=== PATIENT | female | born 1945 | race Caucasian/White ===

== ENCOUNTER 2018-10-25 20:02 | Inpatient (IN) | payer BC, MEDICAID ==
[~2018-10-25] VITALS: Ht 167.6 cm; Wt 43.1 kg
[2018-10-25] MEDS ORDERED: CEFTRIAXONE 1 GM/50 ML (PMX) 50 ML IVPB STA (20:06)
[2018-10-25 20:26] VITALS: Ht 167.6 cm; Wt 43.1 kg
[2018-10-25] MEDS ORDERED: SODIUM CHLORIDE 0.9% 1L BAG IV* STA (21:19)
[2018-10-25] MEDS ORDERED: AZITHROMYCIN 500MG/NS (PMX) 250 ML IVPB ONE (22:30)
--- NOTE | 2018-10-25 22:34 | ERD ---
ER Documentation Chief Complaint Chief Complaint ALTERED HPI Patient is a 73-year-old female with no medical problems who presents with altered mental status. Please note the history and physical exam is limited secondary to patient's mental status she is unable to give a history. The patient was brought in by ambulance. For the last few weeks she has had decreased p.o. intake and the paramedics she has "failure to thrive". The patient complained of shortness of breath today. Sugar was within normal limits per paramedics. The patient lives at home and friend supposed to take care of her. She is currently awake alert and oriented x3. She does not know what state oriented, what year it is, or what her name was. ROS All systems reviewed and are negative except as per history of present illness. Medications Home Meds No Active Prescriptions or Reported Meds Allergies Allergies: Coded Allergies: No Known Allergy (Unverified , 10/25/18) PMhx/Soc Medical and Surgical Hx: pt denies Medical Hx, pt denies Surgical Hx Hx Alcohol Use: No Hx Substance Use: No Hx Tobacco Use: Yes Smoking Status: Current every day smoker FmHx Unable to obtain Physical Exam Vitals Vital Signs Date Temp Pulse Resp B/P (MAP) Pulse Ox O2 O2 Flow FiO2 Time Delivery Rate 10/25/18 98.4 64 18 133/81 98 20:26 (98) Physical Exam Const: No acute distress Head: Atraumatic Eyes: Normal Conjunctiva ENT: Dry mucous membranes Neck: Full range of motion. No meningismus. Resp: Decreased breath sounds bilaterally Cardio: Regular rate and rhythm, no murmurs Abd: Soft, non tender, non distended. Normal bowel sounds Skin: No petechiae or rashes Back: No midline or flank tenderness Ext: No cyanosis, or edema Neur: Awake and alert Psych: Normal Mood and Affect Result Diagram: 10/25/18 2018 10/25/18 2018 Results 24 hrs Laboratory Tests Test 10/25/18 20:18 10/25/18 20:21 10/25/18 22:07 White Blood Count 11.6 10^3/ul Red Blood Count 4.75 10^6/ul Hemoglobin 14.8 g/dl Hematocrit 45.4 % Mean Corpuscular Volume 95.6 fl Mean Corpuscular Hemoglobin 31.2 pg Mean Corpuscular 32.6 g/dl Hemoglobin Concent Red Cell Distribution Width 12.2 % Platelet Count 288 10^3/UL Mean Platelet Volume 11.0 fl Immature Granulocytes % 0.300 % Neutrophils % 78.3 % Lymphocytes % 12.4 % Monocytes % 8.2 % Eosinophils % 0.5 % Basophils % 0.3 % Nucleated Red Blood Cells % 0.0 /100WBC Immature Granulocytes # 0.040 10^3/ul Neutrophils # 9.1 10^3/ul Lymphocytes # 1.4 10^3/ul Monocytes # 1.0 10^3/ul Eosinophils # 0.1 10^3/ul Basophils # 0.0 10^3/ul Nucleated Red Blood Cells # 0.0 10^3/ul Prothrombin Time 12.2 Sec Prothrombin Time Ratio 1.0 INR International Normalized Ratio 0.89 Activated Partial Thromboplast 29.9 Sec Time Sodium Level 151 mmol/L Potassium Level 3.5 mmol/L Chloride Level 115 mmol/L Carbon Dioxide Level 29 mmol/L Anion Gap 7 Blood Urea Nitrogen 22 mg/dl Creatinine 0.76 mg/dl Est Glomerular Filtrat Rate mL/min mL/min Glucose Level 112 mg/dl Calcium Level 12.6 mg/dl Total Bilirubin 0.5 mg/dl Direct Bilirubin 0.00 mg/dl Indirect Bilirubin 0.5 mg/dl Aspartate Amino Transf (AST/SGOT) 31 IU/L Alanine 22 IU/L Aminotransferase (ALT/SGPT) Alkaline Phosphatase 115 IU/L Troponin I 0.019 ng/ml Total Protein 7.7 g/dl Albumin 3.7 g/dl Globulin 4.00 g/dl Albumin/Globulin Ratio 0.92 POC Venous Lactate 1.2 mmol/L Lactic Acid Level 1.8 mmol/L Current Medications Medications Dose Sig/Hellen Start Time Status Last (Trade) Ordered Route PRN Stop Time Admin Dose Reason Admin Ceftriaxone 50 ml @ ONCE STAT 10/25/18 DC 10/25/18 Sodium 100 mls/hr IVPB 20:06 20:06 10/25/18 20:35 Sodium 1,300 ml BOLUS OVER 2 10/25/18 DC 10/25/18 Chloride HOURS STAT 21:19 21:52 (NS) IV* 10/25/18 21:20 Azithromycin 250 ml @ ONCE ONCE 10/25/18 250 mls/hr IVPB 22:30 10/25/18 23:29 Procedures/MDM CT scan of the brain read by radiology. Chest x-ray shows pneumonia per radiology. Smoking Cessation Therapy: Pt. was lectured for greater than 3 minutes on the health risks of continued smoking and the benefits of cessation. Patient is a 73-year-old female who presents with altered mental status. Patient was found to have a dense pneumonia. The patient was given ceftriaxone and Zithromax for community associated pneumonia. I doubt sepsis at this time. The patient was given a 30 mg/kg fluid bolus for fluid resuscitation as she does appear very dehydrated. She has hypernatremia likely from dehydration. The patient will be admitted to the care of Dr. Lovell to a medical surgical bed. Departure Diagnosis: Primary Impression: PNA (pneumonia) Pneumonia type: due to unspecified organism Laterality: unspecified laterality Lung location: unspecified part of lung Qualified Codes: J18.9 - Pneumonia, unspecified organism Additional Impressions: Encephalopathy Dehydration Condition: Serious TRISH ALFARO MD Oct 25, 2018 22:34
--- NOTE | 2018-10-25 22:46 | HP ---
Date/Time of Note Date/Time of Note DATE: 10/25/18 TIME: 22:45 Assessment/Plan VTE Prophylaxis Pharmacological prophylaxis: heparin Lines/Catheters IV Catheter Type (from Nrs): Saline Lock Assessment/Plan Assessment/Plan 1. Encephalopathy: Unknown baseline -Head CT shows moderate white matter disease and a prominent atherosclerosis of the internal carotid and vertebral artery otherwise no acute findings -Consider MRI of the brain based on clinical course -Attempt to gather more information about the patient's past during the day -PT eval 2. Failure to thrive -Dietary consult 3. Hypernatremia: Secondary to dehydration -D5W with 1/4NS 4. Mild leukocytosis: Likely reactive Result Diagram: 10/25/18201710/25/182017 Results 24hrs Laboratory Tests Test 10/25/18 20:18 10/25/18 20:21 10/25/18 22:07 White Blood Count 11.6 H Red Blood Count 4.75 Hemoglobin 14.8 Hematocrit 45.4 Mean Corpuscular Volume 95.6 Mean Corpuscular Hemoglobin 31.2 Mean Corpuscular Hemoglobin Concent 32.6 Red Cell Distribution Width 12.2 Platelet Count 288 Mean Platelet Volume 11.0 H Immature Granulocytes % 0.300 Neutrophils % 78.3 H Lymphocytes % 12.4 L Monocytes % 8.2 Eosinophils % 0.5 Basophils % 0.3 Nucleated Red Blood Cells % 0.0 Immature Granulocytes # 0.040 H Neutrophils # 9.1 H Lymphocytes # 1.4 Monocytes # 1.0 H Eosinophils # 0.1 Basophils # 0.0 Nucleated Red Blood Cells # 0.0 Prothrombin Time 12.2 Prothrombin Time Ratio 1.0 INR International Normalized Ratio 0.89 Activated Partial Thromboplast Time 29.9 Sodium Level 151 H Potassium Level 3.5 Chloride Level 115 H Carbon Dioxide Level 29 Anion Gap 7 Blood Urea Nitrogen 22 H Creatinine 0.76 Est Glomerular Filtrat Rate mL/min Glucose Level 112 Calcium Level 12.6 H Total Bilirubin 0.5 Direct Bilirubin 0.00 Indirect Bilirubin 0.5 Aspartate Amino Transf (AST/SGOT) 31 Alanine Aminotransferase (ALT/SGPT) 22 Alkaline Phosphatase 115 Troponin I 0.019 Total Protein 7.7 Albumin 3.7 Globulin 4.00 H Albumin/Globulin Ratio 0.92 POC Venous Lactate 1.2 Lactic Acid Level 1.8 HPI/ROS Admit Date/Time Admit Date/Time Hx of Present Illness Patient is a 73-year-old female with no known past medical history who was brought to the ER for altered mentation. Patient is not oriented and as such unable to give history. She is thinly built with poor dentition as well as overall poor oral hygiene. She said also consult this time is to have some rest and sleep. When she presented to the ER, her sodium was found to be 151, WBC 11.6. Head CT shows moderate white matter disease and prominent atherosclerosis of internal carotid and vertebral artery otherwise no acute findings. PMH/Family/Social Past Medical History Past Surgical Hx: other (see HPI) Family History Significant Family History: no pertinent family hx Social History Alcohol Use: none Smoking Status: Never smoker Drug Use: none Exam Constitutional: No acute distress Head: normocephalic, atraumatic Eyes: EOMI, PERRL Respiratory: no distress Cardiovascular: regular rate and rhythm Gastrointestinal: soft Extremities: normal pulses Medications Current Medications Azithromycin 250 ml @ 250 mls/hr ONCE ONCE IVPB ; Start 10/25/18 at 22:30; S top 10/25/18 at 23:29 Ondansetron HCl (Zofran Inj) 4 mg BRIDGE ORDER PRN IV NAUSEA/VOMITING; Start at 23:00; Stop 10/26/18 at 22:59 Acetaminophen (Tylenol Tab) 650 mg ER BRIDGE PRN PO .MILD PAIN 1-3 OR TEMP; Start 10/25/18 at 23:00; Stop 10/26/18 at 22:59 IV Flush (NS 3 ml) 3 ml PER PROTOCOL IV ; Start 10/25/18 at 23:00; Status UNV Ondansetron HCl (Zofran Inj) 4 mg Q6H PRN IV NAUSEA/VOMITING; Start 10/25/18 at 23:00; Status UNV Acetaminophen (Tylenol Supp) 650 mg Q6H PRN [place] .PAIN 1-3 OR TEMP; Start 10/25/18 at 23:00; Status UNV Heparin Sodium (Porcine) (Heparin (5000 Units/1ml)) 5,000 unit Q12 SC ; Start 10/26/18 at 09:00; Status UNV Albuterol/ Ipratropium (Duoneb) 3 ml Q2H RESP THERAPY PRN HHN SHORTNESS OF BREATH; Start 10/25/18 at 23:00; Status UNV Ceftriaxone Sodium 50 ml @ 100 mls/hr Q12H IVPB ; Start 10/25/18 at 23:00; Status UNV Azithromycin 250 ml @ 250 mls/hr DAILY IVPB ; Start 10/26/18 at 09:00; Status UNV Dextrose/Sodium Chloride 1,000 ml @ 100 mls/hr Q10H IV ; Start 10/25/18 at 23:00; Status UNV Coded Allergies: No Known Allergy (Unverified , 10/25/18) Social History Smoking Status: Current every day smoker Exam/Review of Systems Vital Signs Vitals Vital Signs Date Temp Pulse Resp B/P (MAP) Pulse Ox O2 O2 Flow FiO2 Time Delivery Rate 10/25/18 98.4 64 18 133/81 98 20:26 (98) KECIA DOE MD Oct 25, 2018 22:46
[2018-10-25] MEDS ORDERED: ALBUTEROL/IPRATROPIUM (NEB) 3 ML AMP HHN PRN (23:00)
[2018-10-25] MEDS ORDERED: ONDANSETRON 4 MG INJ IV PRN ×2 (23:00)
[2018-10-25] MEDS ORDERED: ACETAMINOPHEN 325 MG TAB PO PRN (23:00)
[2018-10-25] MEDS ORDERED: ACETAMINOPHEN 650 MG SUPP PR PRN (23:00)
[2018-10-25] MEDS ORDERED: NACL 0.9% 3 ML SYG IV SCH (23:00)
[2018-10-25 23:37] VITALS: BP 120/65; PULSE 80; RESP 18
[2018-10-26] MEDS: DEXTROSE 5%-0.225% NACL 1,000 ML IV SCH ×4 (00:51→19:00)
[2018-10-26 01:26] VITALS: BP 143/69; PULSE 62; RESP 17
[2018-10-26 08:07] VITALS: BP 140/63; PULSE 69; RESP 18
[2018-10-26] MEDS: CEFTRIAXONE 1 GM/50 ML (PMX) 50 ML IVPB SCH ×3 (08:20→21:41)
[2018-10-26] MEDS: HEPARIN 5,000 UNIT/1 ML VIAL SC SCH ×2 (08:27→21:53)
[2018-10-26] MEDS: POTASSIUM CHLORIDE 100 ML IVPB SCH ×2 (10:04→11:57)
--- NOTE | 2018-10-26 11:38 | PN ---
Date/Time of Note Date/Time of Note DATE: 10/26/18 TIME: 11:34 Assessment/Plan VTE Prophylaxis SCD applied (from Nsg): Yes Pharmacological prophylaxis: heparin Lines/Catheters IV Catheter Type (from Nrsg): Peripheral IV Assessment/Plan Hospital Course Assessment and plan 1. Encephalopathy. Head CT showed moderate white matter disease and prominent atherosclerosis of the internal carotid and vertebral artery otherwise no acute finding. Continue reorientation. Will get further imaging pending clinical course. Will get physical therapy. 2. Failure to thrive. Dietary consult. Will get social media specialist to follow. May need possible placement. We will get case management consultation. 3. Hyponatremia. Continue with IV fluids. Monitor trend. 4. Hypokalemia. Will replete. Monitor level. 5. Pneumonia. Chest x-ray did show dense pneumonia on the right lung. Will get CT imaging with IV contrast. Disposition plan. Will get CT scan of the chest. We will continue with antibiotics. Awaiting PT eval. Discussed POC with Dr. Crow Result Diagram: 10/26/18 0615 10/26/18 0614 Results 24hrs Laboratory Tests Test 10/25/18 20:18 10/25/18 20:21 10/25/18 22:07 10/26/18 00:55 White Blood Count 11.6 H Red Blood Count 4.75 Hemoglobin 14.8 Hematocrit 45.4 Mean Corpuscular 95.6 Volume Mean Corpuscular 31.2 Hemoglobin Mean Corpuscular 32.6 Hemoglobin Concent Red Cell 12.2 Distribution Width Platelet Count 288 Mean Platelet Volume 11.0 H Immature 0.300 Granulocytes % Neutrophils % 78.3 H Lymphocytes % 12.4 L Monocytes % 8.2 Eosinophils % 0.5 Basophils % 0.3 Nucleated Red Blood 0.0 Cells % Immature 0.040 H Granulocytes # Neutrophils # 9.1 H Lymphocytes # 1.4 Monocytes # 1.0 H Eosinophils # 0.1 Basophils # 0.0 Nucleated Red Blood 0.0 Cells # Prothrombin Time 12.2 Prothrombin Time 1.0 Ratio INR International 0.89 Normalized Ratio Activated 29.9 Partial Thromboplast Time Sodium Level 151 H Potassium Level 3.5 Chloride Level 115 H Carbon Dioxide Level 29 Anion Gap 7 Blood Urea Nitrogen 22 H Creatinine 0.76 Est Glomerular Filtrat Rate mL/min Glucose Level 112 Calcium Level 12.6 H Total Bilirubin 0.5 Direct Bilirubin 0.00 Indirect Bilirubin 0.5 Aspartate Amino 31 Transf (AST/SGOT) Alanine 22 Aminotransferase (AL T/SGPT) Alkaline Phosphatase 115 Troponin I 0.019 Total Protein 7.7 Albumin 3.7 Globulin 4.00 H Albumin/Globulin 0.92 Ratio POC Venous Lactate 1.2 Lactic Acid Level 1.8 1.4 Test 10/26/18 06:14 10/26/18 06:15 Sodium Level 151 H Potassium Level 2.9 *L Chloride Level 115 H Carbon Dioxide Level 30 Anion Gap 6 Blood Urea Nitrogen 21 H Creatinine 0.70 Est Glomerular Filtrat Rate mL/min Glucose Level 135 Calcium Level 11.9 H Phosphorus Level 2.7 Magnesium Level 2.3 Total Bilirubin 0.4 Direct Bilirubin 0.00 Indirect Bilirubin 0.4 Aspartate Amino 27 Transf (AST/SGOT) Alanine 18 Aminotransferase (AL T/SGPT) Alkaline Phosphatase 95 Total Protein 7.1 Albumin 3.4 Globulin 3.70 H Albumin/Globulin 0.91 Ratio Triglycerides Level 112 Cholesterol Level 168 LDL Cholesterol, 111 Calculated HDL Cholesterol 35 Cholesterol/HDL 4.8 Ratio Free Thyroxine Index 2.03 Thyroxine (T4) 4.9 L Triiodothyronine 41.5 H (T3) Uptake White Blood Count 10.1 Red Blood Count 4.58 Hemoglobin 14.1 Hematocrit 44.8 Mean Corpuscular 97.8 Volume Mean Corpuscular 30.8 Hemoglobin Mean Corpuscular 31.5 L Hemoglobin Concent Red Cell 12.3 Distribution Width Platelet Count 271 Mean Platelet Volume 11.1 H Immature 0.400 Granulocytes % Neutrophils % 83.2 H Lymphocytes % 9.6 L Monocytes % 6.2 Eosinophils % 0.4 Basophils % 0.2 Nucleated Red Blood 0.0 Cells % Immature 0.040 H Granulocytes # Neutrophils # 8.4 H Lymphocytes # 1.0 Monocytes # 0.6 Eosinophils # 0.0 Basophils # 0.0 Nucleated Red Blood 0.0 Cells # Hemoglobin A1c 5.9 Subjective 24 Hr Interval Summary Free Text/Dictation alert, but confused. slightly anxious. denies any pain Exam/Review of Systems Exam Vitals Vital Signs Date Temp Pulse Resp B/P (MAP) Pulse Ox O2 O2 Flow FiO2 Time Delivery Rate 10/26/18 97.5 69 18 140/63 97 08:07 (88) 10/25/18 Room Air 23:05 Intake and Output 10/25/18 10/25/1810/26/19 1515:00 23:00 07:00 IntakeIntake Total 300 ml BalanceBalance 300 ml Constitutional: alert; No oriented Psych: anxiety Head: normocephalic Respiratory: clear to auscultation Cardiovascular: regular rate and rhythm Gastrointestinal: soft, non-tender Musculoskeletal: No swelling Neurological: No nl mental status Skin: nl turgor Results Results 24hrs Laboratory Tests Test 10/25/18 20:18 10/25/18 20:21 10/25/18 22:07 10/26/18 00:55 White Blood Count 11.6 H Red Blood Count 4.75 Hemoglobin 14.8 Hematocrit 45.4 Mean Corpuscular 95.6 Volume Mean Corpuscular 31.2 Hemoglobin Mean Corpuscular 32.6 Hemoglobin Concent Red Cell 12.2 Distribution Width Platelet Count 288 Mean Platelet Volume 11.0 H Immature 0.300 Granulocytes % Neutrophils % 78.3 H Lymphocytes % 12.4 L Monocytes % 8.2 Eosinophils % 0.5 Basophils % 0.3 Nucleated Red Blood 0.0 Cells % Immature 0.040 H Granulocytes # Neutrophils # 9.1 H Lymphocytes # 1.4 Monocytes # 1.0 H Eosinophils # 0.1 Basophils # 0.0 Nucleated Red Blood 0.0 Cells # Prothrombin Time 12.2 Prothrombin Time 1.0 Ratio INR International 0.89 Normalized Ratio Activated 29.9 Partial Thromboplast Time Sodium Level 151 H Potassium Level 3.5 Chloride Level 115 H Carbon Dioxide Level 29 Anion Gap 7 Blood Urea Nitrogen 22 H Creatinine 0.76 Est Glomerular Filtrat Rate mL/min Glucose Level 112 Calcium Level 12.6 H Total Bilirubin 0.5 Direct Bilirubin 0.00 Indirect Bilirubin 0.5 Aspartate Amino 31 Transf (AST/SGOT) Alanine 22 Aminotransferase (AL T/SGPT) Alkaline Phosphatase 115 Troponin I 0.019 Total Protein 7.7 Albumin 3.7 Globulin 4.00 H Albumin/Globulin 0.92 Ratio POC Venous Lactate 1.2 Lactic Acid Level 1.8 1.4 Test 10/26/18 06:14 10/26/18 06:15 Sodium Level 151 H Potassium Level 2.9 *L Chloride Level 115 H Carbon Dioxide Level 30 Anion Gap 6 Blood Urea Nitrogen 21 H Creatinine 0.70 Est Glomerular Filtrat Rate mL/min Glucose Level 135 Calcium Level 11.9 H Phosphorus Level 2.7 Magnesium Level 2.3 Total Bilirubin 0.4 Direct Bilirubin 0.00 Indirect Bilirubin 0.4 Aspartate Amino 27 Transf (AST/SGOT) Alanine 18 Aminotransferase (AL T/SGPT) Alkaline Phosphatase 95 Total Protein 7.1 Albumin 3.4 Globulin 3.70 H Albumin/Globulin 0.91 Ratio Triglycerides Level 112 Cholesterol Level 168 LDL Cholesterol, 111 Calculated HDL Cholesterol 35 Cholesterol/HDL 4.8 Ratio Free Thyroxine Index 2.03 Thyroxine (T4) 4.9 L Triiodothyronine 41.5 H (T3) Uptake White Blood Count 10.1 Red Blood Count 4.58 Hemoglobin 14.1 Hematocrit 44.8 Mean Corpuscular 97.8 Volume Mean Corpuscular 30.8 Hemoglobin Mean Corpuscular 31.5 L Hemoglobin Concent Red Cell 12.3 Distribution Width Platelet Count 271 Mean Platelet Volume 11.1 H Immature 0.400 Granulocytes % Neutrophils % 83.2 H Lymphocytes % 9.6 L Monocytes % 6.2 Eosinophils % 0.4 Basophils % 0.2 Nucleated Red Blood 0.0 Cells % Immature 0.040 H Granulocytes # Neutrophils # 8.4 H Lymphocytes # 1.0 Monocytes # 0.6 Eosinophils # 0.0 Basophils # 0.0 Nucleated Red Blood 0.0 Cells # Hemoglobin A1c 5.9 Medications Medication Current Medications Ondansetron HCl (Zofran Inj) 4 mg BRIDGE ORDER PRN IV NAUSEA/VOMITING; Start 10/25/18 at 23:00; Stop 10/26/18 at 22:59 Acetaminophen (Tylenol Tab) 650 mg ER BRIDGE PRN PO .MILD PAIN 1-3 OR TEMP; Start 10/25/18 at 23:00; Stop 10/26/18 at 22:59 IV Flush (NS 3 ml) 3 ml PER PROTOCOL IV ; Start 10/25/18 at 23:00 Ondansetron HCl (Zofran Inj) 4 mg Q6H PRN IV NAUSEA/VOMITING; Start 10/25/18 at 23:00 Acetaminophen (Tylenol Supp) 650 mg Q6H PRN [place] .PAIN 1-3 OR TEMP; Start 10/25/18 at 23:00 Heparin Sodium (Porcine) (Heparin (5000 Units/1ml)) 5,000 unit Q12 SC Last administered on 10/26/18at 08:27; Admin Dose 5,000 UNIT; Start 10/26/18 at 09:00 Albuterol/ Ipratropium (Duoneb) 3 ml Q2H RESP THERAPY PRN HHN SHORTNESS OF BREATH; Start 10/25/18 at 23:00 Ceftriaxone Sodium 50 ml @ 100 mls/hr Q12H IVPB Last administered on 10/26/18at 08:20; Admin Dose 100 MLS/HR; Start 10/26/18 at 08:00 Azithromycin 250 ml @ 250 mls/hr Q24H IVPB ; Start 10/26/18 at 22:00 Dextrose/Sodium Chloride 1,000 ml @ 100 mls/hr Q10H IV Last administered on 10/26/18at 00:51; Admin Dose 100 MLS/HR; Start 10/25/18 at 23:00 Potassium Chloride 100 ml @ 50 mls/hr Q2H IVPB Last administered on 10/26/18at 10:04; Admin Dose 50 MLS/HR; Start 10/26/18 at 08:00; Stop 10/26/18 at 11:59 TEMO ELLISON NP Oct 26, 2018 11:38
[2018-10-26 14:57] VITALS: BP 154/79; PULSE 70; RESP 18
--- NOTE | 2018-10-26 16:52 | PSY ---
Date/Time of Note Date/Time of Note DATE: 10/26/18 TIME: 16:52 Psychiatric Subjective Eval Consent Pt consented to telemedicine: No Subjective Evaluation Patient location: inpatient Chief Complaint: ALTERED History of present illness Patient is a 73-year-old female disorganized confused cannot process information, patient thinks she is at home with applesauce and juices on the counter Mini-Mental status exam done and patient had 10/10 she cannot process information. Patient is talking to herself talking to unseen person responding to internal stimuli she has poor impulse control and poor coping skills Past psychiatric history Patient is confused and unable to answer questions Hospitalization: other Medical history Problems Medical Problems: (1) Dehydration Status: Acute (2) Encephalopathy Status: Acute (3) PNA (pneumonia) Status: Acute Allergies: Coded Allergies: No Known Allergy (Unverified , 10/25/18) Substance Abuse Substance abuse history: No Prior substance abuse treatmen: No Social History Marital status: other DPA/Conservatorship: No Psychiatric Objective Eval Review of Systems: Review of Systems: Not Applicable Physical Examination: Physical Examination: Not Applicable Mental Status Examination: Eye Contact: Poor Behavior: Suspicious, Agitated Speech: Soft AFFECT: Anxious Mood: Irritable Though Process: Tangential Orientation: x1 Cognition: Alert Laboratory Results Laboratory Tests Test 10/25/18 14:45 10/25/18 20:18 10/25/18 20:21 10/25/18 22:07 Urine Color YELLOW Urine Clarity SLIGHTLY CLOUDY Urine pH 6.0 Urine Specific 1.018 [place] Urine Ketones NEGATIVE mg/dL Urine Nitrite POSITIVE mg/dL Urine Bilirubin NEGATIVE mg/dL Urine NEGATIVE mg/dL Urobilinogen Urine Leukocyte TRACE James/ul Esterase Urine 2 /HPF Microscopic RBC Urine 21 /HPF Microscopic WBC Urine Bacteria FEW /HPF Urine Mucus MODERATE /HPF Urine Hemoglobin NEGATIVE mg/dL Urine Glucose NEGATIVE mg/dL Urine Total NEGATIVE mg/dl Protein White Blood 11.6 10^3/ul Count Red Blood Count 4.75 10^6/ul Hemoglobin 14.8 g/dl Hematocrit 45.4 % Mean Corpuscular 95.6 fl Volume Mean Corpuscular 31.2 pg Hemoglobin Mean Corpuscular 32.6 g/dl Hemoglobin Makenzie nt Red Cell 12.2 % Distribution Width Platelet Count 288 10^3/UL Mean Platelet 11.0 fl Volume Immature 0.300 % Granulocytes % Neutrophils % 78.3 % Lymphocytes % 12.4 % Monocytes % 8.2 % Eosinophils % 0.5 % Basophils % 0.3 % Nucleated Red 0.0 /100WBC Blood Cells % Immature 0.040 10^3/ul Granulocytes # Neutrophils # 9.1 10^3/ul Lymphocytes # 1.4 10^3/ul Monocytes # 1.0 10^3/ul Eosinophils # 0.1 10^3/ul Basophils # 0.0 10^3/ul Nucleated Red 0.0 10^3/ul Blood Cells # Prothrombin Time 12.2 Sec Prothrombin Time 1.0 Ratio INR 0.89 International Normalized Ratio Activated 29.9 Sec Partial Thrombop last Time Sodium Level 151 mmol/L Potassium Level 3.5 mmol/L Chloride Level 115 mmol/L Carbon Dioxide 29 mmol/L Level Anion Gap 7 Blood Urea 22 mg/dl Nitrogen Creatinine 0.76 mg/dl Est Glomerular mL/min Filtrat Rate mL/min Glucose Level 112 mg/dl Calcium Level 12.6 mg/dl Total Bilirubin 0.5 mg/dl Direct Bilirubin 0.00 mg/dl Indirect 0.5 mg/dl Bilirubin Aspartate Amino 31 IU/L Transf (AST/SGOT ) Alanine 22 IU/L Aminotransferase (ALT/SGPT) Alkaline 115 IU/L Phosphatase Troponin I 0.019 ng/ml Total Protein 7.7 g/dl Albumin 3.7 g/dl Globulin 4.00 g/dl Albumin/Globulin 0.92 Ratio POC Venous 1.2 mmol/L Lactate Lactic Acid 1.8 mmol/L Level Test 10/26/18 00:55 10/26/18 06:14 10/26/18 06:15 Lactic Acid 1.4 mmol/L Level Sodium Level 151 mmol/L Potassium Level 2.9 mmol/L Chloride Level 115 mmol/L Carbon Dioxide 30 mmol/L Level Anion Gap 6 Blood Urea 21 mg/dl Nitrogen Creatinine 0.70 mg/dl Est Glomerular mL/min Filtrat Rate mL/min Glucose Level 135 mg/dl Calcium Level 11.9 mg/dl Phosphorus Level 2.7 mg/dl Magnesium Level 2.3 mg/dl Total Bilirubin 0.4 mg/dl Direct Bilirubin 0.00 mg/dl Indirect 0.4 mg/dl Bilirubin Aspartate Amino 27 IU/L Transf (AST/SGOT ) Alanine 18 IU/L Aminotransferase (ALT/SGPT) Alkaline 95 IU/L Phosphatase Total Protein 7.1 g/dl Albumin 3.4 g/dl Globulin 3.70 g/dl Albumin/Globulin 0.91 Ratio Triglycerides 112 mg/dl Level Cholesterol 168 mg/dl Level LDL Cholesterol, 111 mg/dl Calculated HDL Cholesterol 35 mg/dl Cholesterol/HDL 4.8 RATIO Ratio Free Thyroxine 2.03 ug/ml Index Thyroxine (T4) 4.9 ug/dl Triiodothyronine 41.5 % (T3) Uptake White Blood 10.1 10^3/ul Count Red Blood Count 4.58 10^6/ul Hemoglobin 14.1 g/dl Hematocrit 44.8 % Mean Corpuscular 97.8 fl Volume Mean Corpuscular 30.8 pg Hemoglobin Mean Corpuscular 31.5 g/dl Hemoglobin Makenzie nt Red Cell 12.3 % Distribution Width Platelet Count 271 10^3/UL Mean Platelet 11.1 fl Volume Immature 0.400 % Granulocytes % Neutrophils % 83.2 % Lymphocytes % 9.6 % Monocytes % 6.2 % Eosinophils % 0.4 % Basophils % 0.2 % Nucleated Red 0.0 /100WBC Blood Cells % Immature 0.040 10^3/ul Granulocytes # Neutrophils # 8.4 10^3/ul Lymphocytes # 1.0 10^3/ul Monocytes # 0.6 10^3/ul Eosinophils # 0.0 10^3/ul Basophils # 0.0 10^3/ul Nucleated Red 0.0 10^3/ul Blood Cells # Hemoglobin A1c 5.9 % Assessment and Plan Assessment/Diagnosis Diagnosis Psychosis not otherwise specified, rule out delirium. Recommendation/Plan Multiple antipsychotics: No Discharge Disposition: Other Legal Status: Voluntary (Does not meet criteria for 5150 hold) JUNIOR COOK NP Oct 26, 2018 16:52
[2018-10-26 20:01] VITALS: BP 137/85; PULSE 62; RESP 18
[2018-10-26] MEDS: AZITHROMYCIN 500MG/NS (PMX) 250 ML IVPB SCH (22:39)
[2018-10-27 01:45] VITALS: BP 114/87; PULSE 60; RESP 18
[2018-10-27] MEDS: DEXTROSE 5%-0.225% NACL 1,000 ML IV SCH ×3 (04:00→15:45)
[2018-10-27 07:42] VITALS: BP 142/83; PULSE 50; RESP 18
[2018-10-27] MEDS: CEFTRIAXONE 1 GM/50 ML (PMX) 50 ML IVPB SCH ×2 (08:11→20:31)
[2018-10-27] MEDS: HEPARIN 5,000 UNIT/1 ML VIAL SC SCH ×2 (08:13→20:32)
[2018-10-27] MEDS ORDERED: POTASSIUM CHLORIDE (SR) 20 MEQ TAB PO STA (09:29)
[2018-10-27] MEDS ORDERED: POTASSIUM CHLORIDE 20 MEQ POWDER FOR ORAL SOLN GTB ONE (10:00)
--- NOTE | 2018-10-27 11:37 | CONS ---
Assessment/Plan Assessment/Plan Hospital Course (Demo Recall) Extensive right-sided pulmonary lesions highly suggestive of advanced lung malignancy. COMPLETE STAGING WITH CT CHEST WITH IV CONTRAST AND CT ABD/PELVIS WITH AND WITHOUT IV CONTRAST BIOCHEM W-UP AND TUMOR MARKERS PER RN - NO FAMILY AVAILABLE PT HAS 2 FRIENDS, WHO ARE GOING TO MAKE A DECISION . SOCIAL SERVICE INVOLVED Altered mental status possibly due to hypernatremia. CT BRAIN - NEG COPD. Patient been a current smoker. Advanced dementia. Emaciated state. Consultation Date/Type/Reason Admit Date/Time Date of Consultation: Oct 27, 2018 Type of Consult [facility] Reason for Consultation lung mass Requesting Provider: TEMO ELLISON NP Date/Time of Note DATE: 10/27/18 TIME: 11:36 Hx of Present Illness Patient is a 73-year-old lady who was admitted to the hospital because of altered mental status. her w-up included: chest x-ray, showing extensive infiltrative changes involving the right lung. CT chest- showing extensive right lung involvement with what appears to be advanced malignancy. pt is confused. She cannot recall where she is. She denies any shortness of breath, chest pain, coughing, wheezing or any coughing up of blood. seen with RN at bedside Past medical history; 1. Apparently advanced dementia. Medications; reviewed. Allergies; none. Social history; patient is a current smoker. Family history; patient is apparently single. With no family members. Occupational history; not available. Review of systems; limited review of systems review of pain. Patient denies any headache, seizures. Any chest pain, coughing, shortness of breath. Any abdominal pain, nausea vomiting. Any dysphasia. General exam; elderly woman, appears quite emaciated. Awake and alert. Currently no distress. Current Medications IV Flush (NS 3 ml) 3 ml PER PROTOCOL IV ; Start 10/25/18 at 23:00 Ondansetron HCl (Zofran Inj) 4 mg Q6H PRN IV NAUSEA/VOMITING; Start 10/25/18 at 23:00 Acetaminophen (Tylenol Supp) 650 mg Q6H PRN [place] .PAIN 1-3 OR TEMP; Start 10/25/18 at 23:00 Heparin Sodium (Porcine) (Heparin (5000 Units/1ml)) 5,000 unit Q12 SC Last administered on 10/27/18at 08:13; Admin Dose 5,000 UNIT; Start 10/26/18 at 09:00 Albuterol/ Ipratropium (Duoneb) 3 ml Q2H RESP THERAPY PRN HHN SHORTNESS OF BREATH; Start 10/25/18 at 23:00 Ceftriaxone Sodium 50 ml @ 100 mls/hr Q12H IVPB Last administered on 10/27/18at 08:11; Admin Dose 100 MLS/HR; Start 10/26/18 at 08:00 Azithromycin 250 ml @ 250 mls/hr Q24H IVPB Last administered on 10/26/18at 22:39; Admin Dose 250 MLS/HR; Start 10/26/18 at 22:00 Dextrose/Sodium Chloride 1,000 ml @ 100 mls/hr Q10H IV Last administered on 10/27/18at 04:00; Admin Dose 100 MLS/HR; Start 10/25/18 at 23:00 Lorazepam (Ativan) 1 mg Q6H PRN IV ANXIETY; Start 10/26/18 at 15:30 Allergies: Coded Allergies: No Known Allergy (Unverified , 10/25/18) Social History Smoking Status: Former smoker Past Medical History Home Meds No Active Prescriptions or Reported Meds Medications Current Medications IV Flush (NS 3 ml) 3 ml PER PROTOCOL IV ; Start 10/25/18 at 23:00 Ondansetron HCl (Zofran Inj) 4 mg Q6H PRN IV NAUSEA/VOMITING; Start 10/25/18 at 23:00 Acetaminophen (Tylenol Supp) 650 mg Q6H PRN [place] .PAIN 1-3 OR TEMP; Start 10/25/18 at 23:00 Heparin Sodium (Porcine) (Heparin (5000 Units/1ml)) 5,000 unit Q12 SC Last administered on 10/27/18at 08:13; Admin Dose 5,000 UNIT; Start 10/26/18 at 09:00 Albuterol/ Ipratropium (Duoneb) 3 ml Q2H RESP THERAPY PRN HHN SHORTNESS OF BREATH; Start 10/25/18 at 23:00 Ceftriaxone Sodium 50 ml @ 100 mls/hr Q12H IVPB Last administered on 10/27/18at 08:11; Admin Dose 100 MLS/HR; Start 10/26/18 at 08:00 Azithromycin 250 ml @ 250 mls/hr Q24H IVPB Last administered on 10/26/18at 22:39; Admin Dose 250 MLS/HR; Start 10/26/18 at 22:00 Dextrose/Sodium Chloride 1,000 ml @ 100 mls/hr Q10H IV Last administered on 10/27/18at 04:00; Admin Dose 100 MLS/HR; Start 10/25/18 at 23:00 Lorazepam (Ativan) 1 mg Q6H PRN IV ANXIETY; Start 10/26/18 at 15:30 Allergies: Coded Allergies: No Known Allergy (Unverified , 10/25/18) Social History Smoking Status: Former smoker Exam/Review of Systems Exam Vitals Vital Signs Date Temp Pulse Resp B/P (MAP) Pulse Ox O2 O2 Flow FiO2 Time Delivery Rate 10/27/18 97.9 50 18 142/83 98 07:42 (102) 10/25/18 Room Air 23:05 Intake and Output 10/26/18 10/26/18 10/27/18 1515:00 23:00 07:00 IntakeIntake Total 1490 ml 590 ml 1050 ml OutputOutput Total 500 ml BalanceBalance 1490 ml 90 ml 1050 ml Exam H EENT exam; supple neck, no JVD. No lymphadenopathy. Midline trachea. No thyromegaly. Patient has multiple carious teeth. No neck masses. Chest exam; diminished breath sounds bilaterally. S1-S2 audible, no murmurs. Regular rhythm. Abdomen exam; soft, nondistended. No organomegaly. Bowel sounds audible. Extremity exam; no peripheral edema clubbing. BODY PRESSER exam; patient is awake alert able to talk. Appears confused. No focal motor deficit. Results Result Diagram: 10/26/18 0615 10/27/18 0814 Results 24hrs Laboratory Tests Test 10/27/18 08:14 Potassium Level 3.2 L Imaging Imaging PROCEDURE: CT Chest without IV contrast CLINICAL INDICATION: Pneumonia TECHNIQUE: CT of the chest without IV contrast. Coronal and sagittal reformatted images. One or more of the following dose reduction techniques were used: automated exposure control, adjustment of the mA and/or kV according to patient size, use of iterative reconstruction technique. DICOM images are available. CTDI 4.2 mGy, DLP 156 mGy-cm. COMPARISON: Chest x-ray, 10/25/2018 FINDINGS: Lungs: Large right hilar/perihilar mass is identified measuring 6.2 cm in maximal dimension (3-59), invading into paratracheal/subcarinal mediastinal, compatible with malignancy. Moderate right pleural effusion. Nonspecific patchy areas of consolidation are seen bilaterally, greatest in the right lower lobe. Areas of interstitial thickening and honeycombing are present in the lung pe riphery bilaterally, concerning for pulmonary fibrosis. No pneumothorax. Cardiovascular: Normal heart size. Coronary arterial and aortic atherosclerotic calcifications. No thoracic aortic aneurysm. Lymph nodes and mediastinum: Enlarged right upper paratracheal lymph node is identified, measuring 12 mm short axis, further compatible with neoplasm/metastasis. Upper abdomen: Grossly unremarkable. Musculoskeletal: Expansile lytic lesion is seen involving sternum and right fourth rib costal cartilage, consistent with metastasis. There is pathologic fracture of the right fourth rib anterolaterally. IMPRESSION: 1. Large right hilar/perihilar mass is identified, invading into the adjacent paratracheal and subcarinal mediastinum, causing severe stenosis versus occlusion of the right lower lobe bronchus, compatible with primary lung malignancy. 2. 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 There is pathologic fracture of the right fourth rib anterolaterally. 3. Right upper paratracheal mediastinal lymph node metastasis is also seen. 4. Nonspecific patchy bilateral pulmonary opacities are noted, greatest in the right lower lobe - considerations include pneumonia, atelectasis, add additional infiltrative neoplasm. 5. Moderate right pleural effusion. 6. Areas of interstitial thickening and honeycombing are present in the lung periphery bilaterally, concerning for pulmonary fibrosis. CT Brain without contrast. CLINICAL INDICATION: Altered mental status TECHNIQUE: A CT of the brain was performed on a multi-slice CT scanner utilizing axial imaging from the skull base through the vertex without IV contrast. Coronal and sagittal re-formations were created. Images were reviewed on a PACS workstation. The CTDIvol is 40 mGy and the DLP is 634 mGycm. DICOM images are available. 3-D reconstructions were not performed. One or more of the following dose reduction techniques were utilized: 1.) Automated exposure control 2.) Adjustment of the mA +/- kV according to patient's size 3.) Use of iterative reconstruction technique. COMPARISON: None FINDINGS: The basilar cisterns, ventricular spaces and sulcal spaces are all mildly to moderately prominent. There is no midline shift or other evidence of mass effect. There are no abnormal foci of increased attenuation in the brain parenchyma. There is moderate diffuse periventricular white matter low attenuation in both hemispheres without particular focality. Bone-windows show no lytic or blastic calvarial lesions. The visualized paranasal sinuses and mastoid air cells are clear. There is calcification in the intracranial internal carotid and vertebral arteries. IMPRESSION: 1. Moderate central and cortical cerebral atrophy and moderate microvascular white matter disease, without evidence of intracranial hemorrhage, mass, or acute infarct. 2. Prominent atherosclerosis of the intracranial internal carotid and vertebral arteries. Medications Medication Current Medications IV Flush (NS 3 ml) 3 ml PER PROTOCOL IV ; Start 10/25/18 at 23:00 Ondansetron HCl (Zofran Inj) 4 mg Q6H PRN IV NAUSEA/VOMITING; Start 10/25/18 at 23:00 Acetaminophen (Tylenol Supp) 650 mg Q6H PRN [place] .PAIN 1-3 OR TEMP; Start 10/25/18 at 23:00 Heparin Sodium (Porcine) (Heparin (5000 Units/1ml)) 5,000 unit Q12 SC Last administered on 10/27/18at 08:13; Admin Dose 5,000 UNIT; Start 10/26/18 at 09:00 Albuterol/ Ipratropium (Duoneb) 3 ml Q2H RESP THERAPY PRN HHN SHORTNESS OF BREATH; Start 10/25/18 at 23:00 Ceftriaxone Sodium 50 ml @ 100 mls/hr Q12H IVPB Last administered on 10/27/18at 08:11; Admin Dose 100 MLS/HR; Start 10/26/18 at 08:00 Azithromycin 250 ml @ 250 mls/hr Q24H IVPB Last administered on 10/26/18at 22:39; Admin Dose 250 MLS/HR; Start 10/26/18 at 22:00 Dextrose/Sodium Chloride 1,000 ml @ 100 mls/hr Q10H IV Last administered on 10/27/18at 04:00; Admin Dose 100 MLS/HR; Start 10/25/18 at 23:00 Lorazepam (Ativan) 1 mg Q6H PRN IV ANXIETY; Start 10/26/18 at 15:30 MARSHAL CHINO MD Oct 27, 2018 11:37
--- NOTE | 2018-10-27 11:55 | CONS ---
Assessment/Plan Assessment/Plan Assessment/Plan (Daily) Assessment and recommendations; 1. Patient admitted with altered mental status possibly due to hypernatremia. 2. Extensive right-sided pulmonary lesions highly suggestive of advanced lung malignancy. 3. COPD. Patient been a current smoker. 4. Advanced dementia. 5. Emaciated state. Continue current supportive care. In view of patient's lack of any family members, underlying dementia , emaciated state and patient's inability to decide to care for herself , I would recommend a conservative treatment approach and not to pursue tissue diagnosis at this point. CT chest findings are highly consistent with advanced lung malignancy and regardless, patient would not be a candidate for any kind of treatment. However, patient's friends are in the process of getting some kind of DPOA. Consultation Date/Type/Reason Admit Date/Time Date of Consultation: Oct 27, 2018 Type of Consult Pulmonary Patient is a 73-year-old lady who was admitted to the hospital because of altered mental status. Upon further evaluation a chest x-ray was done which is showing extensive infiltrative changes involving the right lung. Patient also was hypernatremic. CT chest also was done which is showing extensive right lung involvement with what appears to be advanced malignancy. By the time I saw her, patient is much more awake and alert. Is able to talk but appears confused. She cannot recall where she is. She denies any shortness of breath, chest pain, coughing, wheezing or any coughing up of blood. Past medical history; 1. Apparently advanced dementia. Medications; reviewed. Allergies; none. Social history; patient is a current smoker. Family history; patient is apparently single. With no family members. Occupational history; not available. Review of systems; limited review of systems review of pain. Patient denies any headache, seizures. Any chest pain, coughing, shortness of breath. Any abdominal pain, nausea vomiting. Any dysphasia. General exam; elderly woman, appears quite emaciated. Awake and alert. Currently no distress. Date/Time of Note DATE: 10/27/18 TIME: 11:49 Past Medical History Home Meds No Active Prescriptions or Reported Meds Medications Current Medications IV Flush (NS 3 ml) 3 ml PER PROTOCOL IV ; Start 10/25/18 at 23:00 Ondansetron HCl (Zofran Inj) 4 mg Q6H PRN IV NAUSEA/VOMITING; Start 10/25/18 at 23:00 Acetaminophen (Tylenol Supp) 650 mg Q6H PRN [place] .PAIN 1-3 OR TEMP; Start 10/25/18 at 23:00 Heparin Sodium (Porcine) (Heparin (5000 Units/1ml)) 5,000 unit Q12 SC Last administered on 10/27/18at 08:13; Admin Dose 5,000 UNIT; Start 10/26/18 at 09:00 Albuterol/ Ipratropium (Duoneb) 3 ml Q2H RESP THERAPY PRN HHN SHORTNESS OF BREATH; Start 10/25/18 at 23:00 Ceftriaxone Sodium 50 ml @ 100 mls/hr Q12H IVPB Last administered on 10/27/18at 08:11; Admin Dose 100 MLS/HR; Start 10/26/18 at 08:00 Azithromycin 250 ml @ 250 mls/hr Q24H IVPB Last administered on 10/26/18at 22:39; Admin Dose 250 MLS/HR; Start 10/26/18 at 22:00 Dextrose/Sodium Chloride 1,000 ml @ 100 mls/hr Q10H IV Last administered on 10/27/18at 04:00; Admin Dose 100 MLS/HR; Start 10/25/18 at 23:00 Lorazepam (Ativan) 1 mg Q6H PRN IV ANXIETY; Start 10/26/18 at 15:30 Allergies: Coded Allergies: No Known Allergy (Unverified , 10/25/18) Social History Smoking Status: Former smoker Exam/Review of Systems Exam Vitals Vital Signs Date Temp Pulse Resp B/P (MAP) Pulse Ox O2 O2 Flow FiO2 Time Delivery Rate 10/27/18 97.9 50 18 142/83 98 07:42 (102) 10/25/18 Room Air 23:05 Intake and Output 10/26/18 10/26/18 10/27/18 1515:00 23:00 07:00 IntakeIntake Total 1490 ml 590 ml 1050 ml OutputOutput Total 500 ml BalanceBalance 1490 ml 90 ml 1050 ml Exam H EENT exam; supple neck, no JVD. No lymphadenopathy. Midline trachea. No thyromegaly. Patient has multiple carious teeth. No neck masses. Chest exam; diminished breath sounds bilaterally. S1-S2 audible, no murmurs. Regular rhythm. Abdomen exam; soft, nondistended. No organomegaly. Bowel sounds audible. Extremity exam; no peripheral edema clubbing. STEAMFITTER exam; patient is awake alert able to talk. Appears confused. No focal motor deficit. Results Result Diagram: 10/26/18 0615 10/27/18 0814 Results 24hrs Laboratory Tests Test 10/27/18 08:14 Potassium Level 3.2 L Medications Medication Current Medications IV Flush (NS 3 ml) 3 ml PER PROTOCOL IV ; Start 10/25/18 at 23:00 Ondansetron HCl (Zofran Inj) 4 mg Q6H PRN IV NAUSEA/VOMITING; Start 10/25/18 at 23:00 Acetaminophen (Tylenol Supp) 650 mg Q6H PRN [place] .PAIN 1-3 OR TEMP; Start 10/25/18 at 23:00 Heparin Sodium (Porcine) (Heparin (5000 Units/1ml)) 5,000 unit Q12 SC Last administered on 10/27/18at 08:13; Admin Dose 5,000 UNIT; Start 10/26/18 at 09:00 Albuterol/ Ipratropium (Duoneb) 3 ml Q2H RESP THERAPY PRN HHN SHORTNESS OF BREATH; Start 10/25/18 at 23:00 Ceftriaxone Sodium 50 ml @ 100 mls/hr Q12H IVPB Last administered on 10/27/18at 08:11; Admin Dose 100 MLS/HR; Start 10/26/18 at 08:00 Azithromycin 250 ml @ 250 mls/hr Q24H IVPB Last administered on 10/26/18at 22:39; Admin Dose 250 MLS/HR; Start 10/26/18 at 22:00 Dextrose/Sodium Chloride 1,000 ml @ 100 mls/hr Q10H IV Last administered on 10/27/18at 04:00; Admin Dose 100 MLS/HR; Start 10/25/18 at 23:00 Lorazepam (Ativan) 1 mg Q6H PRN IV ANXIETY; Start 10/26/18 at 15:30 JESICA FLORES Oct 27, 2018 11:55
--- NOTE | 2018-10-27 13:08 | PN ---
Date/Time of Note Date/Time of Note DATE: 10/27/18 TIME: 13:01 Assessment/Plan VTE Prophylaxis Risk score (from Ns)>0 risk: 5 SCD applied (from Ns): Yes Pharmacological prophylaxis: heparin Lines/Catheters IV Catheter Type (from [facility]): Peripheral IV Urinary Cath still in place: Yes Reason Cath still needed: other (indicate) (monitor I&O) Assessment/Plan Hospital Course Assessment and plan 1. Encephalopathy. Head CT showed moderate white matter disease and prominent atherosclerosis of the internal carotid and vertebral artery otherwise no acute finding. Continue reorientation. 2. Failure to thrive. social work manager/dependency case manager following. follow dietitian recommendations 3. Hyponatremia. Continue with IV fluids. Monitor trend. 4. Hypokalemia. Will replete. Monitor level. 5. Pneumonia. executive receptionist following. continue abx 6. Large right hilar/perihilar mass is identified, invading into the adjacent paratracheal and subcarinal mediastinum, causing severe stenosis versus occlusion of the right lower lobe bronchus, compatible with primary lung malignancy. Oncologist consulted. f/u recommendations will get palliative care consult Disposition plan. Continue antibiotics. Continue reorientation. Electronics Assembler and oncologist following. We will also get palliative care physician to help with goals of care. Monitor in-house Discussed POC with Dr. Crow Result Diagram: 10/26/18 0615 10/27/18 1141 Results 24hrs Laboratory Tests Test 10/27/18 08:14 10/27/18 11:41 Potassium Level 3.2 L 3.0 L Lactate Dehydrogenase 445 CA 19-9 Antigen Pending Subjective 24 Hr Interval Summary Free Text/Dictation patient more alert to self but does not know the year or time. no respiratory distress noted Exam/Review of Systems Exam Vitals Vital Signs Date Temp Pulse Resp B/P (MAP) Pulse Ox O2 O2 Flow FiO2 Time Delivery Rate 10/27/18 97.9 50 18 142/83 98 07:42 (102) 10/25/18 Room Air 23:05 Intake and Output 10/26/18 10/26/18 10/27/18 1515:00 23:00 07:00 IntakeIntake Total 1490 ml 590 ml 1050 ml OutputOutput Total 500 ml BalanceBalance 1490 ml 90 ml 1050 ml Exam Constitutional: alert; No oriented Psych: anxiety Head: normocephalic Respiratory: no obvious wheezing/rhonchi Cardiovascular: regular rate and rhythm Gastrointestinal: soft, non-tender Musculoskeletal: No swelling Neurological: No nl mental status Skin: nl turgor Results Results 24hrs Laboratory Tests Test 10/27/18 08:14 10/27/18 11:41 Potassium Level 3.2 L 3.0 L Lactate Dehydrogenase 445 CA 19-9 Antigen Pending Medications Medication Current Medications IV Flush (NS 3 ml) 3 ml PER PROTOCOL IV ; Start 10/25/18 at 23:00 Ondansetron HCl (Zofran Inj) 4 mg Q6H PRN IV NAUSEA/VOMITING; Start 10/25/18 at 23:00 Acetaminophen (Tylenol Supp) 650 mg Q6H PRN [place] .PAIN 1-3 OR TEMP; Start 10/25/18 at 23:00 Heparin Sodium (Porcine) (Heparin (5000 Units/1ml)) 5,000 unit Q12 SC Last administered on 10/27/18at 08:13; Admin Dose 5,000 UNIT; Start 10/26/18 at 09:00 Albuterol/ Ipratropium (Duoneb) 3 ml Q2H RESP THERAPY PRN HHN SHORTNESS OF BREATH; Start 10/25/18 at 23:00 Ceftriaxone Sodium 50 ml @ 100 mls/hr Q12H IVPB Last administered on 10/27/18at 08:11; Admin Dose 100 MLS/HR; Start 10/26/18 at 08:00 Azithromycin 250 ml @ 250 mls/hr Q24H IVPB Last administered on 10/26/18at 22:39; Admin Dose 250 MLS/HR; Start 10/26/18 at 22:00 Dextrose/Sodium Chloride 1,000 ml @ 100 mls/hr Q10H IV Last administered on 10/27/18at 04:00; Admin Dose 100 MLS/HR; Start 10/25/18 at 23:00 Lorazepam (Ativan) 1 mg Q6H PRN IV ANXIETY; Start 10/26/18 at 15:30 TEMO ELLISON NP Oct 27, 2018 13:07
[2018-10-27] MEDS ORDERED: IOHEXOL 300MG/ML 150 ML BTL ONE (13:40)
[2018-10-27] MEDS ORDERED: SOD CHLORIDE 0.9% 100 ML ONE (13:40)
[2018-10-27] MEDS: POTASSIUM CHLORIDE 100 ML IVPB SCH ×2 (15:45→18:06)
[2018-10-27 16:41] VITALS: BP 124/64; PULSE 72; RESP 18
[2018-10-27 17:58] VITALS: BP 142/76; PULSE 68; RESP 14
[2018-10-27 20:00] VITALS: BP 133/79; PULSE 68; RESP 19
[2018-10-27] MEDS: AZITHROMYCIN 500MG/NS (PMX) 250 ML IVPB SCH (21:26)
[2018-10-28] MEDS: DEXTROSE 5%-0.225% NACL 1,000 ML IV SCH ×2 (01:00→03:12)
[2018-10-28 02:00] VITALS: BP 134/72; PULSE 75; RESP 17
[2018-10-28 07:50] VITALS: BP 129/80; PULSE 65; RESP 17
[2018-10-28] MEDS: CEFTRIAXONE 1 GM/50 ML (PMX) 50 ML IVPB SCH ×2 (08:10→19:59)
[2018-10-28] MEDS ORDERED: BISACODYL (EC) 5 MG TAB PO ONE (10:30)
--- NOTE | 2018-10-28 10:32 | CONS ---
Assessment/Plan Assessment/Plan Hospital Course (Demo Recall) Summary Assessment and Plan: Assessment: Hematochezia Large right hilar/perihilar mass is identified, invading into the adjacent paratracheal and subcarinal mediastinum, causing severe stenosis versus occlusion of the right lower lobe bronchus, compatible with primary lung malignancy. -Oncology following will get palliative care consult Encephalopathy - CT brain: Moderate white matter disease and prominent atherosclerosis of the internal carotid and vertebral artery otherwise no acute finding. PNA Failure to thrive. Hyponatremia. Hypokalemia. Plan: STAT NM bleeding scan Pulmonary clearance for possible endoscopic evaluation SW following- will need consent for endoscopic evaluation- patient has no family Monitor H/Hq 6hr- transfuse as needed Patient seen in collaboration with Dr. Thornton CC: JAMAICA THORNTON MD ; Consultation Date/Type/Reason Admit Date/Time Date of Consultation: Oct 28, 2018 Type of Consult GI Reason for Consultation Hematochezia Date/Time of Note DATE: 10/28/18 TIME: 10:29 Hx of Present Illness This is a 73-year-old female who was admitted for altered mental status during hospitalization imaging including a chest x-ray shows dense pneumonia and atelectasis in the right lung. CT chest was also obtained showing large right hilar/perihilar mass, invading into the adjacent peritracheal and sub-cranial mediastinum, causing severe stenosis versus occlusion of the right lower lobe bronchus compatible with primary lung malignancy. Expansile osteolytic metastasis is noted involving the sternum and and right fourth rib costochondral cartilage there is pathologic fracture of the right fourth rib anterolaterally. Right upper paratracheal mediastinal lymph node metastasis is also seen. Nonspecific patchy bilateral pulmonary opacities are noted greatest in the right lower lobe considerations include pneumonia versus atelectasis versus additional infiltrative neoplasm. Moderate right pleural effusion and areas of interstitial thickening and honeycombing are present in the lung peripherally bilaterally concerning for pulmonary fibrosis. GERD on admission patient's hemoglobin was noted to be 14.8 auscultation patient presented with hematochezia and hemoglobin today is noted to be 12 point 2 GI has been consulted for further evaluation. According to nursing staff patient does live alone she is confused alert and oriented to 1 has difficulty following commands social media developer has been contacted to possibly obtain family member or other to sign consent for possible endoscopic evaluation. Review of Systems: A 12 system, review was conducted and is negative except as noted in the HPI or here. Past Medical History Home Meds No Active Prescriptions or Reported Meds Medications Current Medications IV Flush (NS 3 ml) 3 ml PER PROTOCOL IV ; Start 10/25/18 at 23:00 Ondansetron HCl (Zofran Inj) 4 mg Q6H PRN IV NAUSEA/VOMITING; Start 10/25/18 at 23:00 Acetaminophen (Tylenol Supp) 650 mg Q6H PRN [place] .PAIN 1-3 OR TEMP; Start 10/25/18 at 23:00 Heparin Sodium (Porcine) (Heparin (5000 Units/1ml)) 5,000 unit Q12 SC Last administered on 10/27/18at 20:32; Admin Dose 5,000 UNIT; Start 10/26/18 at 09:00; Status Hold Albuterol/ Ipratropium (Duoneb) 3 ml Q2H RESP THERAPY PRN HHN SHORTNESS OF BREATH; Start 10/25/18 at 23:00 Ceftriaxone Sodium 50 ml @ 100 mls/hr Q12H IVPB Last administered on 10/28/18at 08:10; Admin Dose 100 MLS/HR; Start 10/26/18 at 08:00 Azithromycin 250 ml @ 250 mls/hr Q24H IVPB Last administered on 10/27/18at 21:26; Admin Dose 250 MLS/HR; Start 10/26/18 at 22:00 Dextrose/Sodium Chloride 1,000 ml @ 100 mls/hr Q10H IV Last administered on 10/28/18at 03:12; Admin Dose 100 MLS/HR; Start 10/25/18 at 23:00 Lorazepam (Ativan) 1 mg Q6H PRN IV ANXIETY; Start 10/26/18 at 15:30 Allergies: Coded Allergies: No Known Allergy (Unverified , 10/25/18) Social History Smoking Status: Former smoker Exam/Review of Systems Exam Vitals Vital Signs Date Temp Pulse Resp B/P (MAP) Pulse Ox O2 O2 Flow FiO2 Time Delivery Rate 10/28/18 97.8 65 17 129/80 97 Room Air 07:50 (96) Intake and Output 10/27/18 10/27/18 10/28/18 1515:00 23:00 07:00 IntakeIntake Total 770 ml 1325 ml 1129 ml OutputOutput Total 350 ml 1300 ml BalanceBalance 420 ml 1325 ml -171 ml Exam PHYSICAL EXAMINATION: GENERAL:Alert & oriented x 1, in no acute distress SKIN: No lesions HEAD: Normocephalic, atraumatic, no tenderness. EYES: Pupils equal reactive to light, no discharge. CARDIOVASCULAR: Heart: Regular rate and rhythm RESPIRATORY: Diminished GASTROINTESTINAL AND LIVER: Abdomen: Soft, non tenderness, non-distended, no hernias, no masses, no organomegaly, no ascites, no guarding, no rebound tenderness, normoactive bowel sounds. Rectal: Deferred. Results Result Diagram: 10/28/18 0510/28/18525 Results 24hrs Laboratory Tests Test 10/27/18 10:37 10/27/18 11:41 10/28/18 05:26 Sodium Level 140 136 Potassium Level 3.0 L 3.0 L 3.5 Chloride Level 105 # 104 Carbon Dioxide Level 29 28 Anion Gap 6 4 L Blood Urea Nitrogen 11 # 7 Creatinine 0.71 0.66 Est Glomerular Filtrat Rate mL/min Glucose Level 121 135 Calcium Level 11.1 H 10.2 White Blood Count 9.3 Red Blood Count 3.92 L Hemoglobin 12.2 Hematocrit 36.8 L Mean Corpuscular Volume 93.9 Mean Corpuscular Hemoglobin 31.1 Mean Corpuscular Hemoglobin Concent 33.2 Red Cell Distribution Width 12.0 Platelet Count 216 # Mean Platelet Volume 11.4 H Immature Granulocytes % 0.300 Neutrophils % 76.6 Lymphocytes % 13.4 L Monocytes % 7.9 Eosinophils % 1.6 Basophils % 0.2 Nucleated Red Blood Cells % 0.0 Immature Granulocytes # 0.030 Neutrophils # 7.1 Lymphocytes # 1.2 Monocytes # 0.7 Eosinophils # 0.2 Basophils # 0.0 Nucleated Red Blood Cells # 0.0 Medications Medication Current Medications IV Flush (NS 3 ml) 3 ml PER PROTOCOL IV ; Start 10/25/18 at 23:00 Ondansetron HCl (Zofran Inj) 4 mg Q6H PRN IV NAUSEA/VOMITING; Start 10/25/18 at 23:00 Acetaminophen (Tylenol Supp) 650 mg Q6H PRN [place] .PAIN 1-3 OR TEMP; Start 10/25/18 at 23:00 Heparin Sodium (Porcine) (Heparin (5000 Units/1ml)) 5,000 unit Q12 SC Last administered on 10/27/18at 20:32; Admin Dose 5,000 UNIT; Start 10/26/18 at 09:00; Status Hold Albuterol/ Ipratropium (Duoneb) 3 ml Q2H RESP THERAPY PRN HHN SHORTNESS OF BREATH; Start 10/25/18 at 23:00 Ceftriaxone Sodium 50 ml @ 100 mls/hr Q12H IVPB Last administered on 10/28/18at 08:10; Admin Dose 100 MLS/HR; Start 10/26/18 at 08:00 Azithromycin 250 ml @ 250 mls/hr Q24H IVPB Last administered on 10/27/18at 21:26; Admin Dose 250 MLS/HR; Start 10/26/18 at 22:00 Dextrose/Sodium Chloride 1,000 ml @ 100 mls/hr Q10H IV Last administered on 10/28/18at 03:12; Admin Dose 100 MLS/HR; Start 10/25/18 at 23:00 Lorazepam (Ativan) 1 mg Q6H PRN IV ANXIETY; Start 10/26/18 at 15:30 YAZMIN SANCHEZ Oct 28, 2018 10:32
--- NOTE | 2018-10-28 13:15 | PN ---
Date/Time of Note Date/Time of Note DATE: 10/28/18 TIME: 13:11 Assessment/Plan VTE Prophylaxis Risk score (from Ns)>0 risk: 4 SCD applied (from Ns): Yes Pharmacological prophylaxis: heparin Lines/Catheters IV Catheter Type (from [facility] Peripheral IV Urinary Cath still in place: Yes Reason Cath still needed: other (indicate) (monitor I&O) Assessment/Plan Hospital Course Assessment and plan 1. Suspect GI bleed. News Commentator consulted. Follow-up on GI bleed scan. Possible colonoscopy. Monitor H&H. Transfuse blood products as needed. 2. Encephalopathy. Head CT showed moderate white matter disease and prominent atherosclerosis of the internal carotid and vertebral artery otherwise no acute finding. Continue reorientation. 3. Failure to thrive. social media strategist/caseworker intake following. follow dietitian recommendations 4. Hyponatremia. improved 5. Hypokalemia. monitor and replete as needed 6. Pneumonia. compressor station engineer following. continue abx 7. Large right hilar/perihilar mass is identified, invading into the adjacent paratracheal and subcarinal mediastinum, causing severe stenosis versus occlusion of the right lower lobe bronchus, compatible with primary lung malignancy. Oncologist consulted. f/u recommendations palliative care consult following Disposition plan. Noted with worse anemia. Monitor H&H. Suspect GI bleed. Follow-up on GI bleed scan. Patient noted with no POA. Noted with acute blood loss and drop in hemoglobin. Will anticipate for emergent colonoscopy due to severity of bleed and possibility of life-threatening condition. Discussed case with potato chip sorter of bioethics. Further recommendations pending clinical course. Discussed POC with Dr. Crow Result Diagram: 10/28/18 0526 10/28/18 0526 Results 24hrs Laboratory Tests Test 10/28/18 05:26 White Blood Count 9.3 Red Blood Count 3.92 L Hemoglobin 12.2 Hematocrit 36.8 L Mean Corpuscular Volume 93.9 Mean Corpuscular Hemoglobin 31.1 Mean Corpuscular Hemoglobin Concent 33.2 Red Cell Distribution Width 12.0 Platelet Count 216 # Mean Platelet Volume 11.4 H Immature Granulocytes % 0.300 Neutrophils % 76.6 Lymphocytes % 13.4 L Monocytes % 7.9 Eosinophils % 1.6 Basophils % 0.2 Nucleated Red Blood Cells % 0.0 Immature Granulocytes # 0.030 Neutrophils # 7.1 Lymphocytes # 1.2 Monocytes # 0.7 Eosinophils # 0.2 Basophils # 0.0 Nucleated Red Blood Cells # 0.0 Sodium Level 136 Potassium Level 3.5 Chloride Level 104 Carbon Dioxide Level 28 Anion Gap 4 L Blood Urea Nitrogen 7 Creatinine 0.66 Est Glomerular Filtrat Rate mL/min Glucose Level 135 Calcium Level 10.2 Subjective 24 Hr Interval Summary Free Text/Dictation alert but not oriented, suspect baseline. no distress noted Exam/Review of Systems Exam Vitals Vital Signs Date Temp Pulse Resp B/P (MAP) Pulse Ox O2 O2 Flow FiO2 Time Delivery Rate 10/28/18 97.8 65 17 129/80 97 Room Air 07:50 (96) Intake and Output 10/27/18 10/27/18 10/28/18 1515:00 23:00 07:00 IntakeIntake Total 770 ml 1325 ml 1129 ml OutputOutput Total 350 ml 1300 ml BalanceBalance 420 ml 1325 ml -171 ml Exam Constitutional: alert; No oriented Psych: anxiety Head: normocephalic Respiratory: no obvious wheezing/rhonchi Cardiovascular: regular rate and rhythm Gastrointestinal: soft, non-tender Musculoskeletal: No swelling Neurological: No nl mental status Skin: nl turgor Results Results 24hrs Laboratory Tests Test 10/28/18 05:26 White Blood Count 9.3 Red Blood Count 3.92 L Hemoglobin 12.2 Hematocrit 36.8 L Mean Corpuscular Volume 93.9 Mean Corpuscular Hemoglobin 31.1 Mean Corpuscular Hemoglobin Concent 33.2 Red Cell Distribution Width 12.0 Platelet Count 216 # Mean Platelet Volume 11.4 H Immature Granulocytes % 0.300 Neutrophils % 76.6 Lymphocytes % 13.4 L Monocytes % 7.9 Eosinophils % 1.6 Basophils % 0.2 Nucleated Red Blood Cells % 0.0 Immature Granulocytes # 0.030 Neutrophils # 7.1 Lymphocytes # 1.2 Monocytes # 0.7 Eosinophils # 0.2 Basophils # 0.0 Nucleated Red Blood Cells # 0.0 Sodium Level 136 Potassium Level 3.5 Chloride Level 104 Carbon Dioxide Level 28 Anion Gap 4 L Blood Urea Nitrogen 7 Creatinine 0.66 Est Glomerular Filtrat Rate mL/min Glucose Level 135 Calcium Level 10.2 Medications Medication Current Medications IV Flush (NS 3 ml) 3 ml PER PROTOCOL IV ; Start 10/25/18 at 23:00 Ondansetron HCl (Zofran Inj) 4 mg Q6H PRN IV NAUSEA/VOMITING; Start 10/25/18 at 23:00 Acetaminophen (Tylenol Supp) 650 mg Q6H PRN [place] .PAIN 1-3 OR TEMP; Start 10/25/18 at 23:00 Heparin Sodium (Porcine) (Heparin (5000 Units/1ml)) 5,000 unit Q12 SC Last administered on 10/27/18at 20:32; Admin Dose 5,000 UNIT; Start 10/26/18 at 09:00; Status Hold Albuterol/ Ipratropium (Duoneb) 3 ml Q2H RESP THERAPY PRN HHN SHORTNESS OF BREATH; Start 10/25/18 at 23:00 Ceftriaxone Sodium 50 ml @ 100 mls/hr Q12H IVPB Last administered on 10/28/18at 08:10; Admin Dose 100 MLS/HR; Start 10/26/18 at 08:00 Azithromycin 250 ml @ 250 mls/hr Q24H IVPB Last administered on 10/27/18at 21:26; Admin Dose 250 MLS/HR; Start 10/26/18 at 22:00 Dextrose/Sodium Chloride 1,000 ml @ 100 mls/hr Q10H IV Last administered on at 03:12; Admin Dose 100 MLS/HR; Start 10/25/18 at 23:00 Lorazepam (Ativan) 1 mg Q6H PRN IV ANXIETY; Start 10/26/18 at 15:30 TEMO ELLISON NP Oct 28, 2018 13:14
[2018-10-28] MEDS ORDERED: MINERAL OIL 133 ML ENEMA PR ONE (17:00)
[2018-10-28] MEDS ORDERED: MINERAL OIL 30ML CUP PO ONE (17:00)
[2018-10-28] MEDS ORDERED: MAGNESIUM CITRATE 300 ML BTL PO ONE (17:30)
[2018-10-28] MEDS ORDERED: POLYETHYLENE GLYCOL 3350 119 GM POWDER PO ONE (18:30)
[2018-10-28] MEDS: D5W-0.45 NACL + KCL 20 MEQ 1,000 ML IV SCH (19:59)
[2018-10-28 20:02] VITALS: BP 118/66; PULSE 84; RESP 20
[2018-10-28] MEDS: LACTULOSE 30ML CUP PO SCH (20:28)
[2018-10-28] MEDS: AZITHROMYCIN 500MG/NS (PMX) 250 ML IVPB SCH (21:01)
--- NOTE | 2018-10-28 23:28 | CONS ---
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 STAGING WITH CT CHEST WITH IV CONTRAST AND CT ABD/PELVIS WITH AND WITHOUT IV CONTRAST- REVIEWED BIOCHEM W-UP AND TUMOR MARKERS-P PER RN - NO FAMILY AVAILABLE PT HAS 2 FRIENDS, WHO ARE GOING TO MAKE A DECISION . SOCIAL SERVICE INVOLVED PALLIATIVE CARE EVAL DOESN'T LOOK LIKE PT A GOOD CANDIDATE FOR AGGRESSIVE TREATMENT Altered mental status possibly due to hypernatremia. CT BRAIN - NEG COPD. Patient been a current smoker. Advanced dementia. Emaciated state. Consultation Date/Type/Reason Admit Date/Time Oct 25, 2018 at 22:31 Initial Consult Date 10/28/18 Type of Consult [facility] Requesting Provider: TEMO ELLISON NP Date/Time of Note DATE: 10/28/18 TIME: 23:23 24 HR Interval Summary Free Text/Dictation ALL NOTED NAD CONFUSED Exam/Review of Systems Exam Vitals Vital Signs Date Temp Pulse Resp B/P (MAP) Pulse Ox O2 O2 Flow FiO2 Time Delivery Rate 10/28/18 98.0 84 20 118/66 100 Room Air 20:02 (83) Intake and Output 10/27/18 10/27/18 10/28/18 1515:00 23:00 07:00 IntakeIntake Total 770 ml 1325 ml 1129 ml OutputOutput Total 350 ml 1300 ml BalanceBalance 420 ml 1325 ml -171 ml Exam H EENT exam; supple neck, no JVD. No lymphadenopathy. Midline trachea. No thyromegaly. Patient has multiple carious teeth. No neck masses. Chest exam; diminished breath sounds bilaterally. S1-S2 audible, no murmurs. Regular rhythm. Abdomen exam; soft, nondistended. No organomegaly. Bowel sounds audible. Extremity exam; no peripheral edema clubbing. SLIP INJECTOR AND APPLICATOR exam; patient is awake alert able to talk. Appears confused. No focal motor deficit. Results Result Diagram: 10/28/18 1818 10/28/18 0526 Results 24hrs Laboratory Tests Test 10/28/18 05:26 10/28/18 12:34 10/28/18 18:18 White Blood Count 9.3 Red Blood Count 3.92 L Hemoglobin 12.2 11.9 L 12.8 Hematocrit 36.8 L 35.8 L 37.8 Mean Corpuscular Volume 93.9 Mean Corpuscular Hemoglobin 31.1 Mean Corpuscular Hemoglobin Concent 33.2 Red Cell Distribution Width 12.0 Platelet Count 216 # Mean Platelet Volume 11.4 H Immature Granulocytes % 0.300 Neutrophils % 76.6 Lymphocytes % 13.4 L Monocytes % 7.9 Eosinophils % 1.6 Basophils % 0.2 Nucleated Red Blood Cells % 0.0 Immature Granulocytes # 0.030 Neutrophils # 7.1 Lymphocytes # 1.2 Monocytes # 0.7 Eosinophils # 0.2 Basophils # 0.0 Nucleated Red Blood Cells # 0.0 Sodium Level 136 Potassium Level 3.5 Chloride Level 104 Carbon Dioxide Level 28 Anion Gap 4 L Blood Urea Nitrogen 7 Creatinine 0.66 Est Glomerular Filtrat Rate mL/min Glucose Level 135 Calcium Level 10.2 Imaging Imaging PROCEDURE: CT Chest without IV contrast CLINICAL INDICATION: Pneumonia TECHNIQUE: CT of the chest without IV contrast. Coronal and sagittal reformatted images. One or more of the following dose reduction techniques were used: automated exposure control, adjustment of the mA and/or kV according to patient size, use of iterative reconstruction technique. DICOM images are available. CTDI 4.2 mGy, DLP 156 mGy-cm. COMPARISON: Chest x-ray, 10/25/2018 FINDINGS: Lungs: Large right hilar/perihilar mass is identified measuring 6.2 cm in maximal dimension (3-59), invading into paratracheal/subcarinal mediastinal, compatible with malignancy. Moderate right pleural effusion. Nonspecific patchy areas of consolidation are seen bilaterally, greatest in the right lower lobe. Areas of interstitial thickening and honeycombing are present in the lung periphery bilaterally, concerning for pulmonary fibrosis. No pneumothorax. Cardiovascular: Normal heart size. Coronary arterial and aortic atherosclerotic calcifications. No thoracic aortic aneurysm. Lymph nodes and mediastinum: Enlarged right upper paratracheal lymph node is identified, measuring 12 mm short axis, further compatible with neoplasm/metastasis. Upper abdomen: Grossly unremarkable. Musculoskeletal: Expansile lytic lesion is seen involving sternum and right fourth rib costal cartilage, consistent with metastasis. There is pathologic fracture of the right fourth rib anterolaterally. IMPRESSION: 1. Large right hilar/perihilar mass is identified, invading into the adjacent paratracheal and subcarinal mediastinum, causing severe stenosis versus occlusion of the right lower lobe bronchus, compatible with primary lung malignancy. 2. 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 There is pathologic fracture of the right fourth rib anterolaterally. 3. Right upper paratracheal mediastinal lymph node metastasis is also seen. 4. Nonspecific patchy bilateral pulmonary opacities are noted, greatest in the right lower lobe - considerations include pneumonia, atelectasis, add additional infiltrative neoplasm. 5. Moderate right pleural effusion. 6. Areas of interstitial thickening and honeycombing are present in the lung periphery bilaterally, concerning for pulmonary fibrosis. PROCEDURE: CT Chest, Abdomen and Pelvis with IV contrast CLINICAL INDICATION: Lung cancer TECHNIQUE: CT of the chest, abdomen and pelvis with 80 cc Omnipaque-300 IV contrast. Coronal and sagittal reformatted images. DICOM images are available. One or more of the following dose reduction techniques were used: automated exp osure control, adjustment of the mA and/or kV according to patient size, use of iterative reconstruction technique. CTDI 6.3 mGy, DLP 476 mGy-cm. COMPARISON: CT CHEST 10/26/2018 FINDINGS: CT chest: Lungs: Poorly defined mass is again seen in the perihilar left lower lobe, directly invading into the adjacent right lung hilum and subcarinal mediastinum, measuring approximately 8.5 cm in maximal dimension, compatible with primary lung malignancy. Mass encases and severely narrows the right main pulmonary artery, as well as completely occluding the right lower lobe bronchus. Nonspecific mass-like areas of consolidation are seen scattered throughout the remainder of the bilateral lungs as well. No pneumothorax. Mild pulmonary emphysema and mild pulmonary fibrosis. Moderate to large right pleural effusion. Cardiovascular: Normal heart size. Coronary arterial and aortic atherosclerotic calcifications. No thoracic aortic aneurysm or dissection. Lymph nodes: No lymphadenopathy. Mediastinum: Metastatic lymphadenopathy is noted in the bilateral paratracheal mediastinum measuring up to 20 x 16 mm on the left (3-48). Musculoskeletal: Large expansile osteolytic metastasis is seen involving sternum and anterior right fourth rib, measuring approximately 9 cm in maximal dimension. There is pathologic fracture of the right fourth rib anterolaterally. CT abdomen and pelvis: Liver: Normal Biliary: Cholelithiasis, without evidence for cholecystitis. No biliary dilatation. Pancreas: Normal Spleen: Normal Adrenal glands: Normal Genitourinary: No hydronephrosis or urinary calculi. Argueta catheter balloon is within the urinary bladder. Vascular: No abdominal aortic aneurysm or dissection. Aortoiliac atherosclerotic calcifications. Lymph nodes: No lymphadenopathy. Gastrointestinal: Rectum is significantly distended (9 cm diameter) and stool- filled, compatible with constipation and possible fecal impaction. No bowel obstruction. Status post appendectomy. Sigmoid diverticulosis, without diverticulitis. Peritoneum: No free air, free fluid or abscess. Reproductive organs: Grossly unremarkable. Musculoskeletal: Degenerative enthesopathy of the spine. No focal osseous lesion. IMPRESSION: 1. Again noted is a large right hilar/perihilar lung mass, directly invading into the adjacent subcarinal mediastinum, compatible with primary lung malignancy. Mass encases and significantly narrows the right main pulmonary artery, and completely occludes the right lower lobe bronchus. 2. Additional nonspecific mass-like areas of consolidation are seen in the bilateral lungs, greater on the right - considerations include metastatic disease and/or pneumonia. Moderate to large right pleural effusion. 3. Metastatic lymphadenopathy is noted in the bilateral paratracheal mediastinu m, as above. 4. Expansile osteolytic metastasis is again noted involving the sternum and anterior right fourth rib. 5. No evidence of metastatic disease is seen in the abdomen and pelvis. 6. Mild pulmonary emphysema and mild pulmonary fibrosis. 7. Cholelithiasis, without evidence for cholecystitis. 8. Constipation and possible fecal impaction, as above. 9. Argueta catheter balloon is within the urinary bladder. Medications Medication Current Medications IV Flush (NS 3 ml) 3 ml PER PROTOCOL IV ; Start 10/25/18 at 23:00 Ondansetron HCl (Zofran Inj) 4 mg Q6H PRN IV NAUSEA/VOMITING; Start 10/25/18 at 23:00 Acetaminophen (Tylenol Supp) 650 mg Q6H PRN [place] .PAIN 1-3 OR TEMP; Start 10/25/18 at 23:00 Heparin Sodium (Porcine) (Heparin (5000 Units/1ml)) 5,000 unit Q12 SC Last administered on 10/27/18at 20:32; Admin Dose 5,000 UNIT; Start 10/26/18 at 09:00; Status Hold Albuterol/ Ipratropium (Duoneb) 3 ml Q2H RESP THERAPY PRN HHN SHORTNESS OF BREATH; Start 10/25/18 at 23:00 Ceftriaxone Sodium 50 ml @ 100 mls/hr Q12H IVPB Last administered on 10/28/18 19:59; Admin Dose 100 MLS/HR; Start 10/26/18 at 08:00 Azithromycin 250 ml @ 250 mls/hr Q24H IVPB Last administered on 10/28/18 21:01; Admin Dose 250 MLS/HR; Start 10/26/18 at 22:00 Lorazepam (Ativan) 1 mg Q6H PRN IV ANXIETY; Start 10/26/18 at 15:30 Lactulose (Enulose) 20 gm BID PO Last administered on 10/28/18 20:28; Admin Dose 20 GM; Start 10/28/18 at 21:00; Stop 10/30/18 at 10:00 Potassium Chloride/Dextrose/ Sod Cl 1,000 ml @ 75 mls/hr [id number] IV Last administered on 10/28/18 19:59; Admin Dose 75 MLS/HR; Start 10/28/18 at 19:00 MARSHAL CHINO MD Oct 28, 2018 23:28
--- NOTE | 2018-10-29 01:35 | CONS ---
DATE OF ADMISSION: 10/25/2018 DATE OF CONSULTATION: The patient's condition is fairly stable, still remains confused but has remained hemodynamically sta ble. Also, exhibiting stable pulmonary status. VITAL SIGNS: Temperature 98 degree Fahrenheit, respiratory rate is 18 per minute, heart rate is 80 p er minute, blood pressure 130/70, O2 saturation 95%. HEENT: Supple neck. No JVD, no lymphadenopathy, midline trachea, no thyromegaly. LUNGS: Diminished breath sounds bilaterally. No added sounds. HEART: S1, S2 audible. No murmurs, regular rhythm. ABDOMEN: Soft, nondistended, nontender. Bowel sounds audible. EXTREMITIES: No edema. NEUROLOGIC: No focal motor deficit. MEDICATIONS: Reviewed. ASSESSMENT: 1. The patient admitted with generalized weakness with discovery of significant lung involvement. T he patient likely has underlying advanced malignancy. 2. The patient does not have any family members and cannot consent for her treatment decisions. 3. Advanced age and severe generalized cachectic state. 4. Recent gastrointestinal bleed. 5. Possibly some element of pneumonia. 6. Chronic obstructive pulmonary disease. 7. Current smoker. RECOMMENDATIONS: 1. Continue with supportive care as outlined earlier on my consult from yesterday. The patient is a very poor candidate for any further workup regarding lung lesions which are most likely malignant un til proven otherwise due to advanced age, poor physical conditioning and no family members to consent for treatment. 2. Continue current supportive care. 3. From a pulmonary standpoint, the patient is cleared for GI workup regarding rectal bleeding. Con granite chip terrazzo finisher palliative care. Dictated By: JESICA FLORES MD AQ/NTS Conf#: [id number] DID#: [id number] CC: KECIA DOE MD;*EndCC*
[2018-10-29 02:19] VITALS: BP 100/59; PULSE 66; RESP 20
[2018-10-29] MEDS ORDERED: POLYETHYLENE GLYCOL 3350 119 GM POWDER PO ONE (06:00)
[2018-10-29 08:00] VITALS: BP 110/68; PULSE 67; RESP 18
[2018-10-29] MEDS ORDERED: MINERAL OIL 133 ML ENEMA PR ONE (08:00)
[2018-10-29] MEDS ORDERED: BISACODYL (EC) 5 MG TAB PO ONE (08:00)
[2018-10-29] MEDS: D5W-0.45 NACL + KCL 20 MEQ 1,000 ML IV SCH ×2 (08:20→12:54)
[2018-10-29] MEDS: THIAMINE 100 MG TAB PO SCH (08:53)
[2018-10-29] MEDS: LACTULOSE 30ML CUP PO SCH ×2 (08:54→20:19)
[2018-10-29] MEDS: LORAZEPAM 2 MG INJ IV PRN ×2 (08:54→17:34)
[2018-10-29] MEDS: CEFTRIAXONE 1 GM/50 ML (PMX) 50 ML IVPB SCH ×2 (08:54→20:19)
[2018-10-29] MEDS ORDERED: POTASSIUM CHLORIDE 100 ML IVPB ONE (10:00)
--- NOTE | 2018-10-29 12:16 | PN ---
Date/Time of Note Date/Time of Note DATE: 10/29/18 TIME: 12:11 Assessment/Plan VTE Prophylaxis Risk score (from Ns)>0 risk: 4 SCD applied (from Ns): Yes Pharmacological prophylaxis: NA/contraindicated Pharm contraindication: bleeding Lines/Catheters IV Catheter Type (from [facility]): Peripheral IV Urinary Cath still in place: Yes Reason Cath still needed: other (indicate) (monitor I&O) Assessment/Plan Hospital Course Assessment and plan 1. Suspect GI bleed. Parking Cashier consulted. GI bleed scan: No definite abnormal areas of increased activity up to 60 minutes post injection.. Possible colonoscopy. Monitor H&H. Transfuse blood products as needed. 2. Encephalopathy. Head CT showed moderate white matter disease and prominent atherosclerosis of the internal carotid and vertebral artery otherwise no acute finding. Continue reorientation. 3. Failure to thrive. social media developer/transplant case manager following. follow dietitian recommendations 4. Hyponatremia. improved 5. Hypokalemia. monitor and replete as needed 6. Pneumonia. rn lpn cna following. continue abx 7. Large right hilar/perihilar mass is identified, invading into the adjacent paratracheal and subcarinal mediastinum, causing severe stenosis versus occlusion of the right lower lobe bronchus, compatible with primary lung malign dayan. Oncologist consulted. f/u recommendations palliative care consult following Disposition plan. Suspect GI bleed. Patient noted with no POA. Noted with acute blood loss and drop in hemoglobin. Will anticipate for emergent colonoscopy due to severity of bleed and possibility of life-threatening condition. Discussed case with fertilizing machine operator of bioethics. Continue to monitor H&H trend. f/u GI recommendations. f/u palliative care physician recommendations. social media developer following for hopeful establishment of POA. Further recommendations pending clinical course Discussed POC with Dr. Crow Result Diagram: 10/29/189 10/29/18448 Results 24hrs Laboratory Tests Test 10/28/18 12:34 10/28/18 18:18 10/29/18 00:43 10/29/18 04:49 Hemoglobin 11.9 L 12.8 10.9 L 11.5 L Hematocrit 35.8 L 37.8 32.4 L 34.4 L White Blood Count 9.2 Red Blood Count 3.71 L Mean Corpuscular 92.7 Volume Mean Corpuscular 31.0 Hemoglobin Mean Corpuscular 33.4 Hemoglobin Concent Red Cell 12.1 Distribution Width Platelet Count 211 Mean Platelet Volume 11.7 H Immature 0.400 Granulocytes % Neutrophils % 75.6 Lymphocytes % 13.7 L Monocytes % 8.5 Eosinophils % 1.6 Basophils % 0.2 Nucleated Red Blood 0.0 Cells % Immature 0.040 H Granulocytes # Neutrophils # 6.9 Lymphocytes # 1.3 Monocytes # 0.8 Eosinophils # 0.2 Basophils # 0.0 Nucleated Red Blood 0.0 Cells # Sodium Level 136 Potassium Level 3.2 L Chloride Level 104 Carbon Dioxide Level 26 Anion Gap 6 Blood Urea Nitrogen 7 Creatinine 0.64 Est Glomerular Filtrat Rate mL/min Glucose Level 117 Calcium Level 9.8 Subjective 24 Hr Interval Summary Free Text/Dictation resting during visit. no respiratory distress seen. Exam/Review of Systems Exam Vitals Vital Signs Date Temp Pulse Resp B/P (MAP) Pulse Ox O2 O2 Flow FiO2 Time Delivery Rate 10/29/18 97.6 67 18 110/68 98 08:00 (82) 10/29/18 Room Air 02:19 Intake and Output 10/28/18 10/28/18 10/29/18 1515:00 23:00 07:00 IntakeIntake Total 50 ml 1146 ml 681 ml OutputOutput Total 400 ml BalanceBalance 50 ml 1146 ml 281 ml Exam Constitutional: alert; No oriented Psych: anxiety Head: normocephalic Respiratory: no obvious wheezing/rhonchi Cardiovascular: regular rate and rhythm Gastrointestinal: soft, non-tender Musculoskeletal: No swelling Neurological: No nl mental status Skin: nl turgor Results Results 24hrs Laboratory Tests Test 10/28/18 12:34 10/28/18 18:18 10/29/18 00:43 10/29/18 04:49 Hemoglobin 11.9 L 12.8 10.9 L 11.5 L Hematocrit 35.8 L 37.8 32.4 L 34.4 L White Blood Count 9.2 Red Blood Count 3.71 L Mean Corpuscular 92.7 Volume Mean Corpuscular 31.0 Hemoglobin Mean Corpuscular 33.4 Hemoglobin Concent Red Cell 12.1 Distribution Width Platelet Count 211 Mean Platelet Volume 11.7 H Immature 0.400 Granulocytes % Neutrophils % 75.6 Lymphocytes % 13.7 L Monocytes % 8.5 Eosinophils % 1.6 Basophils % 0.2 Nucleated Red Blood 0.0 Cells % Immature 0.040 H Granulocytes # Neutrophils # 6.9 Lymphocytes # 1.3 Monocytes # 0.8 Eosinophils # 0.2 Basophils # 0.0 Nucleated Red Blood 0.0 Cells # Sodium Level 136 Potassium Level 3.2 L Chloride Level 104 Carbon Dioxide Level 26 Anion Gap 6 Blood Urea Nitrogen 7 Creatinine 0.64 Est Glomerular Filtrat Rate mL/min Glucose Level 117 Calcium Level 9.8 Medications Medication Current Medications IV Flush (NS 3 ml) 3 ml PER PROTOCOL IV ; Start 10/25/18 at 23:00 Ondansetron HCl (Zofran Inj) 4 mg Q6H PRN IV NAUSEA/VOMITING; Start 10/25/18 at 23:00 Acetaminophen (Tylenol Supp) 650 mg Q6H PRN [place] .PAIN 1-3 OR TEMP; Start 10/25/18 at 23:00 Heparin Sodium (Porcine) (Heparin (5000 Units/1ml)) 5,000 unit Q12 SC Last administered on 10/27/18at 20:32; Admin Dose 5,000 UNIT; Start 10/26/18 at 09:00; Status Hold Albuterol/ Ipratropium (Duoneb) 3 ml Q2H RESP THERAPY PRN HHN SHORTNESS OF BREATH; Start 10/25/18 at 23:00 Ceftriaxone Sodium 50 ml @ 100 mls/hr Q12H IVPB Last administered on 10/29/18 08:54; Admin Dose 100 MLS/HR; Start 10/26/18 at 08:00 Azithromycin 250 ml @ 250 mls/hr Q24H IVPB Last administered on 10/28/18at 21: 01; Admin Dose 250 MLS/HR; Start 10/26/18 at 22:00 Lorazepam (Ativan) 1 mg Q6H PRN IV ANXIETY Last administered on 10/29/18 08:54; Admin Dose 1 MG; Start 10/26/18 at 15:30 Lactulose (Enulose) 20 gm BID PO Last administered on 10/29/18 08:54; Admin Dose 20 GM; Start 10/28/18 at 21:00; Stop 10/30/18 at 10:00 Potassium Chloride/Dextrose/ Sod Cl 1,000 ml @ 75 mls/hr [id number] IV Last administered on 7/18/19at 19:59; Admin Dose 75 MLS/HR; Start 10/28/18 at 19:00 Thiamine HCl (Vitamin B1) 100 mg DAILY PO Last administered on 10/29/18at 08:53; Admin Dose 100 MG; Start 10/29/18 at 09:00 TEMO ELLISON NP Oct 29, 2018 12:16
[2018-10-29 14:47] VITALS: BP 113/83; PULSE 70; RESP 18
--- NOTE | 2018-10-29 15:49 | PN ---
DATE: 10/29/2018 SUBJECTIVE: The patient is stable this morning. No respiratory distress. VITAL SIGNS: Currently afebrile, pulse is 70, blood pressure 113/83, 96% on room air. NECK: Supple. No JVD or lymphadenopathy. CARDIAC: S1, S2, no added sounds or murmurs. CHEST: Diminished air entry bilaterally, but no rales or wheezes. ABDOMEN: Soft, nontender. No guarding or rebound. EXTREMITIES: No cyanosis, clubbing, or edema. NEUROLOGIC: Grossly intact. No focal deficits. IMPRESSION AND PLAN: 1. Likely small cell lung cancer given central perihilar mass. 2. Possible gastrointestinal bleed, status post RBC scan. 3. Encephalopathy. 4. Failure to thrive. 5. Possible postobstructive pneumonia. RECOMMENDATIONS: 1. Supplemental O2. 2. Bronchodilators. 3. Antibiotics. 4. We discussed with next of kin regarding goals of care as overall prognosis is extremely poor. Th e patient likely would not survive a malignancy workup and treatment. Dictated By: ALYSSA BRUCE MD SV/ANNA Conf#: [id number] DID#: [id number] CC: KECIA DOE MD;*EndCC*
--- NOTE | 2018-10-29 18:20 | PN ---
Date/Time of Note Date/Time of Note DATE: 10/29/18 TIME: 17:59 Assessment/Plan VTE Prophylaxis Risk score (from Ns)>0 risk: 4 SCD applied (from Ns): Yes Pharmacological prophylaxis: NA/contraindicated Pharm contraindication: bleeding Lines/Catheters [facility] ([facility]): Peripheral IV Urinary Cath still in place: Yes Reason Cath still needed: other (indicate) Assessment/Plan Assessment/Plan Assessment: Hematochezia Large right hilar/perihilar mass is identified, invading into the adjacent paratracheal and subcarinal mediastinum, causing severe stenosis versus occlusion of the right lower lobe bronchus, compatible with primary lung malignancy. -Oncology following will get palliative care consult Encephalopathy - CT brain: Moderate white matter disease and prominent atherosclerosis of the internal carotid and vertebral artery otherwise no acute finding. PNA Failure to thrive. Hyponatremia. Hypokalemia. Plan: Start Amitiza twice daily Start Anusol suppositories High-fiber diet Monitor H&H Transfuse for hemoglobin less than 7.5 Patient seen in collaboration with Dr. Thornton Subjective: Patient is complaining of generalized abdominal discomfort on palpation. Patient has been disimpacted and had a large bowel movement. No further hematochezia noted. Hemoglobin is trending up. Sigmoidoscopy has been counseled. We will continue conservative treatment of constipation and hemorrhoids. Patient is tolerating diet well. Bleeding scan was negative for active bleeding. Continue observation. Exam PHYSICAL EXAMINATION: GENERAL:Alert & oriented x 1, in no acute distress SKIN: No lesions HEAD: Normocephalic, atraumatic, no tenderness. EYES: Pupils equal reactive to light, no discharge. CARDIOVASCULAR: Heart: Regular rate and rhythm RESPIRATORY: Diminished GASTROINTESTINAL AND LIVER: Abdomen: Soft, generalized tenderness, non- distended, no hernias, no masses, no organomegaly, no ascites, no guarding, no rebound tenderness, normoactive bowel sounds. Rectal: Deferred. Result Diagram: 10/29/18 1228 10/29/18 0449 Results 24hrs Laboratory Tests Test 10/28/18 18:18 10/29/18 00:43 10/29/18 04:49 10/29/18 12:28 Hemoglobin 12.8 10.9 L 11.5 L 12.2 Hematocrit 37.8 32.4 L 34.4 L 37.3 White Blood Count 9.2 Red Blood Count 3.71 L Mean Corpuscular 92.7 Volume Mean Corpuscular 31.0 Hemoglobin Mean Corpuscular 33.4 Hemoglobin Concent Red Cell 12.1 Distribution Width Platelet Count 211 Mean Platelet Volume 11.7 H Immature 0.400 Granulocytes % Neutrophils % 75.6 Lymphocytes % 13.7 L Monocytes % 8.5 Eosinophils % 1.6 Basophils % 0.2 Nucleated Red Blood 0.0 Cells % Immature 0.040 H Granulocytes # Neutrophils # 6.9 Lymphocytes # 1.3 Monocytes # 0.8 Eosinophils # 0.2 Basophils # 0.0 Nucleated Red Blood 0.0 Cells # Sodium Level 136 Potassium Level 3.2 L Chloride Level 104 Carbon Dioxide Level 26 Anion Gap 6 Blood Urea Nitrogen 7 Creatinine 0.64 Est Glomerular Filtrat Rate mL/min Glucose Level 117 Calcium Level 9.8 Exam/Review of Systems Exam Vitals Vital Signs Date Temp Pulse Resp B/P (MAP) Pulse Ox O2 O2 Flow FiO2 Time Delivery Rate 10/29/18 98.0 70 18 113/83 96 Room Air 14:47 (93) Intake and Output 10/28/18 10/28/18 10/29/18 1515:00 23:00 07:00 IntakeIntake Total 50 ml 1146 ml 681 ml OutputOutput Total 400 ml BalanceBalance 50 ml 1146 ml 281 ml Results Results 24hrs Laboratory Tests Test 10/28/18 18:18 10/29/18 00:43 10/29/18 04:49 10/29/18 12:28 Hemoglobin 12.8 10.9 L 11.5 L 12.2 Hematocrit 37.8 32.4 L 34.4 L 37.3 White Blood Count 9.2 Red Blood Count 3.71 L Mean Corpuscular 92.7 Volume Mean Corpuscular 31.0 Hemoglobin Mean Corpuscular 33.4 Hemoglobin Concent Red Cell 12.1 Distribution Width Platelet Count 211 Mean Platelet Volume 11.7 H Immature 0.400 Granulocytes % Neutrophils % 75.6 Lymphocytes % 13.7 L Monocytes % 8.5 Eosinophils % 1.6 Basophils % 0.2 Nucleated Red Blood 0.0 Cells % Immature 0.040 H Granulocytes # Neutrophils # 6.9 Lymphocytes # 1.3 Monocytes # 0.8 Eosinophils # 0.2 Basophils # 0.0 Nucleated Red Blood 0.0 Cells # Sodium Level 136 Potassium Level 3.2 L Chloride Level 104 Carbon Dioxide Level 26 Anion Gap 6 Blood Urea Nitrogen 7 Creatinine 0.64 Est Glomerular Filtrat Rate mL/min Glucose Level 117 Calcium Level 9.8 Medications Medication Current Medications IV Flush (NS 3 ml) 3 ml PER PROTOCOL IV ; Start 10/25/18 at 23:00 Ondansetron HCl (Zofran Inj) 4 mg Q6H PRN IV NAUSEA/VOMITING; Start 10/25/18 at 23:00 Acetaminophen (Tylenol Supp) 650 mg Q6H PRN [place] .PAIN 1-3 OR TEMP; Start 10/25/18 at 23:00 Heparin Sodium (Porcine) (Heparin (5000 Units/1ml)) 5,000 unit Q12 SC Last administered on 10/27/18 20:32; Admin Dose 5,000 UNIT; Start 10/26/18 at 09:00; Status Hold Albuterol/ Ipratropium (Duoneb) 3 ml Q2H RESP THERAPY PRN HHN SHORTNESS OF BREATH; Start 10/25/18 at 23:00 Ceftriaxone Sodium 50 ml @ 100 mls/hr Q12H IVPB Last administered on 10/29/18 08:54; Admin Dose 100 MLS/HR; Start 10/26/18 at 08:00 Azithromycin 250 ml @ 250 mls/hr Q24H IVPB Last administered on 10/28/18 21 :01; Admin Dose 250 MLS/HR; Start 10/26/18 at 22:00 Lorazepam (Ativan) 1 mg Q6H PRN IV ANXIETY Last administered on 10/29/18 17:34; Admin Dose 1 MG; Start 10/26/18 at 15:30 Lactulose (Enulose) 20 gm BID PO Last administered on 10/29/18 08:54; Admin Dose 20 GM; Start 10/28/18 at 21:00; Stop 10/30/18 at 10:00 Potassium Chloride/Dextrose/ Sod Cl 1,000 ml @ 75 mls/hr [id number] IV Last administered on 10/29/18 12:54; Admin Dose 75 MLS/HR; Start 10/28/18 at 19:00 Thiamine HCl (Vitamin B1) 100 mg DAILY PO Last administered on 10/29/18 08:53; Admin Dose 100 MG; Start 10/29/18 at 09:00 NE JUAN NP Oct 29, 2018 18:15
[2018-10-29 19:42] VITALS: BP 116/65; PULSE 72; RESP 18
[2018-10-29] MEDS: LUBIPROSTONE 24 MCG CAP PO SCH (20:19)
[2018-10-29] MEDS ORDERED: SKIN RESP FACT/SHARK/PH MERCU SUPP PR PRN (21:00)
--- NOTE | 2018-10-29 22:42 | CONS ---
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 STAGING WITH CT CHEST WITH IV CONTRAST AND CT ABD/PELVIS WITH AND WITHOUT IV CONTRAST- REVIEWED BIOCHEM W-UP- UNREMARKABLE TUMOR MARKERS-NEG PER RN - NO FAMILY AVAILABLE PT HAS 2 FRIENDS, WHO ARE GOING TO MAKE A DECISION . SOCIAL SERVICE INVOLVED PALLIATIVE CARE EVAL DOESN'T LOOK LIKE PT A GOOD CANDIDATE FOR AGGRESSIVE TREATMENT POS REFERRAL TO BIOETHICS COMMITTEE TO REVIEW THE CASE Altered mental status possibly due to hypernatremia. CT BRAIN - NEG COPD. Patient been a current smoker. Advanced dementia. Emaciated state. Consultation Date/Type/Reason Admit Date/Time Oct 25, 2018 at 22:31 Initial Consult Date 10/28/18 Type of Consult hemeon Requesting Provider: TEMO ELLISON NP Date/Time of Note DATE: 10/29/18 TIME: 22:40 24 HR Interval Summary Free Text/Dictation ALL NOTED NAD CONFUSED Exam/Review of Systems Exam Vitals Vital Signs Date Temp Pulse Resp B/P (MAP) Pulse Ox O2 O2 Flow FiO2 Time Delivery Rate 10/29/18 97.9 72 18 116/65 97 19:42 (82) 10/29/18 Room Air 14:47 Intake and Output 10/28/18 10/28/18 10/29/18 1414:59 22:59 06:59 IntakeIntake Total 50 ml 1146 ml 681 ml OutputOutput Total 400 ml BalanceBalance 50 ml 1146 ml 281 ml Results Result Diagram: 10/29/18 1228 10/29/18 0449 Results 24hrs Laboratory Tests Test 10/29/18 00:43 10/29/18 04:49 10/29/18 12:28 Hemoglobin 10.9 L 11.5 L 12.2 Hematocrit 32.4 L 34.4 L 37.3 White Blood Count 9.2 Red Blood Count 3.71 L Mean Corpuscular Volume 92.7 Mean Corpuscular Hemoglobin 31.0 Mean Corpuscular Hemoglobin Concent 33.4 Red Cell Distribution Width 12.1 Platelet Count 211 Mean Platelet Volume 11.7 H Immature Granulocytes % 0.400 Neutrophils % 75.6 Lymphocytes % 13.7 L Monocytes % 8.5 Eosinophils % 1.6 Basophils % 0.2 Nucleated Red Blood Cells % 0.0 Immature Granulocytes # 0.040 H Neutrophils # 6.9 Lymphocytes # 1.3 Monocytes # 0.8 Eosinophils # 0.2 Basophils # 0.0 Nucleated Red Blood Cells # 0.0 Sodium Level 136 Potassium Level 3.2 L Chloride Level 104 Carbon Dioxide Level 26 Anion Gap 6 Blood Urea Nitrogen 7 Creatinine 0.64 Est Glomerular Filtrat Rate mL/min Glucose Level 117 Calcium Level 9.8 Medications Medication Current Medications IV Flush (NS 3 ml) 3 ml PER PROTOCOL IV ; Start 10/25/18 at 23:00 Ondansetron HCl (Zofran Inj) 4 mg Q6H PRN IV NAUSEA/VOMITING; Start 10/25/18 at 23:00 Acetaminophen (Tylenol Supp) 650 mg Q6H PRN [place] .PAIN 1-3 OR TEMP; Start 10/25/18 at 23:00 Heparin Sodium (Porcine) (Heparin (5000 Units/1ml)) 5,000 unit Q12 SC Last administered on 10/27/18at 20:32; Admin Dose 5,000 UNIT; Start 10/26/18 at 09:00; Status Hold Albuterol/ Ipratropium (Duoneb) 3 ml Q2H RESP THERAPY PRN HHN SHORTNESS OF BREATH; Start 10/25/18 at 23:00 Ceftriaxone Sodium 50 ml @ 100 mls/hr Q12H IVPB Last administered on 10/29/18at 20:19; Admin Dose 100 MLS/HR; Start 10/26/18 at 08:00 Azithromycin 250 ml @ 250 mls/hr Q24H IVPB Last administered on 10/28/18at 21:01; Admin Dose 250 MLS/HR; Start 10/26/18 at 22:00 Lorazepam (Ativan) 1 mg Q6H PRN IV ANXIETY Last administered on 10/29/18at 17:34; Admin Dose 1 MG; Start 10/26/18 at 15:30 Lactulose (Enulose) 20 gm BID PO Last administered on 10/29/18at 20:19; Admin Do se 20 GM; Start 10/28/18 at 21:00; Stop 10/30/18 at 10:00 Potassium Chloride/Dextrose/ Sod Cl 1,000 ml @ 75 mls/hr [id number] IV Last administered on 10/29/18at 12:54; Admin Dose 75 MLS/HR; Start 10/28/18 at 19:00 Thiamine HCl (Vitamin B1) 100 mg DAILY PO Last administered on 10/29/18at 08:53; Admin Dose 100 MG; Start 10/29/18 at 09:00 Skin Resp Fact/ Shark/Phenyl Mercur (Hemorrhoidal Supp) 1 ea BID PRN [place] FOR HEMORROID PAIN/ITCHING; Start 10/29/18 at 21:00 Lubiprostone (Amitiza) 24 mcg BID PO Last administered on 10/29/18at 20:19; Admin Dose 24 MCG; Start 10/29/18 at 21:00 MARSHAL CHINO MD Oct 29, 2018 22:42
[2018-10-29] MEDS: AZITHROMYCIN 500MG/NS (PMX) 250 ML IVPB SCH (23:16)
[2018-10-30 02:00] VITALS: BP 117/76; PULSE 70; RESP 18
[2018-10-30 02:32] VITALS: BP 117/76; PULSE 65; RESP 17
[2018-10-30] MEDS: D5W-0.45 NACL + KCL 20 MEQ 1,000 ML IV SCH ×2 (05:34→20:10)
[2018-10-30 08:35] VITALS: BP 127/71; PULSE 67; RESP 20
[2018-10-30] MEDS: LACTULOSE 30ML CUP PO SCH (08:50)
[2018-10-30] MEDS: THIAMINE 100 MG TAB PO SCH (08:50)
[2018-10-30] MEDS: LUBIPROSTONE 24 MCG CAP PO SCH ×2 (08:50→20:10)
[2018-10-30] MEDS: CEFTRIAXONE 1 GM/50 ML (PMX) 50 ML IVPB SCH ×2 (08:50→20:10)
--- NOTE | 2018-10-30 11:16 | PN ---
Date/Time of Note Date/Time of Note DATE: 10/30/18 TIME: 11:13 Assessment/Plan VTE Prophylaxis Risk score (from Ns)>0 risk: 4 SCD applied (from Ns): Yes Pharmacological prophylaxis: NA/contraindicated Pharm contraindication: bleeding Lines/Catheters IV Catheter Type (from [facility]): Peripheral IV Urinary Cath still in place: Yes Reason Cath still needed: other (indicate) (monitor output) Assessment/Plan Hospital Course Assessment/Plan Assessment: Hematochezia Large right hilar/perihilar mass is identified, invading into the adjacent parat cleve and subcarinal mediastinum, causing severe stenosis versus occlusion of the right lower lobe bronchus, compatible with primary lung malignancy. -Oncology following will get palliative care consult Encephalopathy - CT brain: Moderate white matter disease and prominent atherosclerosis of t he internal carotid and vertebral artery otherwise no acute finding. PNA Failure to thrive. Hyponatremia. Hypokalemia. Plan: Amitiza twice daily/Anusol suppositories High-fiber diet Emergent sigmoidoscopy- canaled yesterday- as hematochezia resolved post disimpaction and Hgb improved yesterday Monitor H&H Transfuse for hemoglobin less than 7.5 Continue close observation Patient seen in collaboration with Dr. Thornton Subjective: No over night events, patient appears much more comfortable post disimpaction No further episodes of bleeding Exam PHYSICAL EXAMINATION: GENERAL:Alert & oriented x 1, in no acute distress SKIN: No lesions HEAD: Normocephalic, atraumatic, no tenderness. EYES: Pupils equal reactive to light, no discharge. CARDIOVASCULAR: Heart: Regular rate and rhythm RESPIRATORY: Diminished GASTROINTESTINAL AND LIVER: Abdomen: Soft, generalized tenderness, non- distended, no hernias, no masses, no organomegaly, no ascites, no guarding, no rebound tenderness, normoactive bowel sounds. Rectal: Deferred. Result Diagram: 10/30/18 0502 10/30/18 0502 Results 24hrs Laboratory Tests Test 10/29/18 12:28 10/30/18 05:02 Hemoglobin 12.2 11.3 L Hematocrit 37.3 33.9 L White Blood Count 8.3 Red Blood Count 3.60 L Mean Corpuscular Volume 94.2 Mean Corpuscular Hemoglobin 31.4 Mean Corpuscular Hemoglobin Concent 33.3 Red Cell Distribution Width 12.1 Platelet Count 210 Mean Platelet Volume 11.8 H Immature Granulocytes % 0.400 Neutrophils % 71.0 Lymphocytes % 14.7 L Monocytes % 11.3 H Eosinophils % 2.4 Basophils % 0.2 Nucleated Red Blood Cells % 0.0 Immature Granulocytes # 0.030 Neutrophils # 5.9 Lymphocytes # 1.2 Monocytes # 0.9 Eosinophils # 0.2 Basophils # 0.0 Nucleated Red Blood Cells # 0.0 Sodium Level 137 Potassium Level 3.5 Chloride Level 105 Carbon Dioxide Level 26 Anion Gap 6 Blood Urea Nitrogen 4 L Creatinine 0.58 Est Glomerular Filtrat Rate mL/min Glucose Level 108 Calcium Level 9.9 Exam/Review of Systems Exam Vitals Vital Signs Date Temp Pulse Resp B/P (MAP) Pulse Ox O2 O2 Flow FiO2 Time Delivery Rate 10/30/18 97.9 67 20 127/71 96 08:35 (89) 10/30/18 Room Air 02:32 Intake and Output 10/29/18 10/29/18 10/30/18 1515:00 23:00 07:00 IntakeIntake Total 550 ml 420 ml 1000 ml OutputOutput Total 1250 ml 650 ml BalanceBalance 550 ml -830 ml 350 ml Results Results 24hrs Laboratory Tests Test 10/29/18 12:28 10/30/18 05:02 Hemoglobin 12.2 11.3 L Hematocrit 37.3 33.9 L White Blood Count 8.3 Red Blood Count 3.60 L Mean Corpuscular Volume 94.2 Mean Corpuscular Hemoglobin 31.4 Mean Corpuscular Hemoglobin Concent 33.3 Red Cell Distribution Width 12.1 Platelet Count 210 Mean Platelet Volume 11.8 H Immature Granulocytes % 0.400 Neutrophils % 71.0 Lymphocytes % 14.7 L Monocytes % 11.3 H Eosinophils % 2.4 Basophils % 0.2 Nucleated Red Blood Cells % 0.0 Immature Granulocytes # 0.030 Neutrophils # 5.9 Lymphocytes # 1.2 Monocytes # 0.9 Eosinophils # 0.2 Basophils # 0.0 Nucleated Red Blood Cells # 0.0 Sodium Level 137 Potassium Level 3.5 Chloride Level 105 Carbon Dioxide Level 26 Anion Gap 6 Blood Urea Nitrogen 4 L Creatinine 0.58 Est Glomerular Filtrat Rate mL/min Glucose Level 108 Calcium Level 9.9 Medications Medication Current Medications IV Flush (NS 3 ml) 3 ml PER PROTOCOL IV ; Start 10/25/18 at 23:00 Ondansetron HCl (Zofran Inj) 4 mg Q6H PRN IV NAUSEA/VOMITING; Start 10/25/18 at 23:00 Acetaminophen (Tylenol Supp) 650 mg Q6H PRN [place] .PAIN 1-3 OR TEMP; Start 10/25/18 at 23:00 Heparin Sodium (Porcine) (Heparin (5000 Units/1ml)) 5,000 unit Q12 SC Last administered on 10/27/18at 20:32; Admin Dose 5,000 UNIT; Start 10/26/18 at 09:00; Status Hold Albuterol/ Ipratropium (Duoneb) 3 ml Q2H RESP THERAPY PRN HHN SHORTNESS OF BREATH; Start 10/25/18 at 23:00 Ceftriaxone Sodium 50 ml @ 100 mls/hr Q12H IVPB Last administered on 10/30/18 08:50; Admin Dose 100 MLS/HR; Start 10/26/18 at 08:00 Azithromycin 250 ml @ 250 mls/hr Q24H IVPB Last administered on 10/29/18 23:16; Admin Dose 250 MLS/HR; Start 10/26/18 at 22:00 Lorazepam (Ativan) 1 mg Q6H PRN IV ANXIETY Last administered on 10/29/18 17:34; Admin Dose 1 MG; Start 10/26/18 at 15:30 Potassium Chloride/Dextrose/ Sod Cl 1,000 ml @ 75 mls/hr [id number] IV Last ad ministered on 10/30/18 05:34; Admin Dose 75 MLS/HR; Start 10/28/18 at 19:00 Thiamine HCl (Vitamin B1) 100 mg DAILY PO Last administered on 10/30/18 08:50; Admin Dose 100 MG; Start 10/29/18 at 09:00 Skin Resp Fact/ Shark/Phenyl Mercur (Hemorrhoidal Supp) 1 ea BID PRN [place] FOR HEMORROID PAIN/ITCHING; Start 10/29/18 at 21:00 Lubiprostone (Amitiza) 24 mcg BID PO Last administered on 10/30/18 08:50; Admin Dose 24 MCG; Start 10/29/18 at 21:00 YAZMIN SANCHEZ Oct 30, 2018 11:16
--- NOTE | 2018-10-30 11:34 | CONS ---
Consult Date/Type/Reason Admit Date/Time Oct 25, 2018 at 22:31 Initial Consult Date 10/28/18 Type of Consult Pulmonary Requesting Provider: TEMO ELLISON NP Date/Time of Note DATE: 10/30/18 TIME: 11:33 Subjective No significant changes. Objective Vital Signs Date Temp Pulse Resp B/P (MAP) Pulse Ox O2 O2 Flow FiO2 Time Delivery Rate 10/30/18 97.9 67 20 127/71 96 08:35 (89) 10/30/18 Room Air 02:32 Intake and Output 10/29/18 10/29/18 10/30/18 1515:00 23:00 07:00 IntakeIntake Total 550 ml 420 ml 1000 ml OutputOutput Total 1250 ml 650 ml BalanceBalance 550 ml -830 ml 350 ml Exam VITAL SIGNS: NECK: Supple. No JVD or lymphadenopathy. CARDIAC: S1, S2, no added sounds or murmurs. CHEST: Diminished air entry bilaterally, but no rales or wheezes. ABDOMEN: Soft, nontender. No guarding or rebound. EXTREMITIES: No cyanosis, clubbing, or edema. NEUROLOGIC: Grossly intact. No focal deficits. Results/Medications Result Diagram: 10/30/18 0502 10/30/18 0502 Results 24 hrs Laboratory Tests Test 10/29/18 12:28 10/30/18 05:02 Hemoglobin 12.2 11.3 L Hematocrit 37.3 33.9 L White Blood Count 8.3 Red Blood Count 3.60 L Mean Corpuscular Volume 94.2 Mean Corpuscular Hemoglobin 31.4 Mean Corpuscular Hemoglobin Concent 33.3 Red Cell Distribution Width 12.1 Platelet Count 210 Mean Platelet Volume 11.8 H Immature Granulocytes % 0.400 Neutrophils % 71.0 Lymphocytes % 14.7 L Monocytes % 11.3 H Eosinophils % 2.4 Basophils % 0.2 Nucleated Red Blood Cells % 0.0 Immature Granulocytes # 0.030 Neutrophils # 5.9 Lymphocytes # 1.2 Monocytes # 0.9 Eosinophils # 0.2 Basophils # 0.0 Nucleated Red Blood Cells # 0.0 Sodium Level 137 Potassium Level 3.5 Chloride Level 105 Carbon Dioxide Level 26 Anion Gap 6 Blood Urea Nitrogen 4 L Creatinine 0.58 Est Glomerular Filtrat Rate mL/min Glucose Level 108 Calcium Level 9.9 Medications Current Medications IV Flush (NS 3 ml) 3 ml PER PROTOCOL IV ; Start 10/25/18 at 23:00 Ondansetron HCl (Zofran Inj) 4 mg Q6H PRN IV NAUSEA/VOMITING; Start 10/25/18 at 23:00 Acetaminophen (Tylenol Supp) 650 mg Q6H PRN [place] .PAIN 1-3 OR TEMP; Start 10/25/18 at 23:00 Heparin Sodium (Porcine) (Heparin (5000 Units/1ml)) 5,000 unit Q12 SC Last administered on 10/27/18at 20:32; Admin Dose 5,000 UNIT; Start 10/26/18 at 09:00; Status Hold Albuterol/ Ipratropium (Duoneb) 3 ml Q2H RESP THERAPY PRN HHN SHORTNESS OF BREATH; Start 10/25/18 at 23:00 Ceftriaxone Sodium 50 ml @ 100 mls/hr Q12H IVPB Last administered on 10/30/18at 08:50; Admin Dose 100 MLS/HR; Start 10/26/18 at 08:00 Azithromycin 250 ml @ 250 mls/hr Q24H IVPB Last administered on 10/29/18at 2 3:16; Admin Dose 250 MLS/HR; Start 10/26/18 at 22:00 Lorazepam (Ativan) 1 mg Q6H PRN IV ANXIETY Last administered on 10/29/18at 17:34; Admin Dose 1 MG; Start 10/26/18 at 15:30 Potassium Chloride/Dextrose/ Sod Cl 1,000 ml @ 75 mls/hr [id number] IV Last administered on 10/30/18 05:34; Admin Dose 75 MLS/HR; Start 10/28/18 at 19:00 Thiamine HCl (Vitamin B1) 100 mg DAILY PO Last administered on 10/30/18 08:50; Admin Dose 100 MG; Start 10/29/18 at 09:00 Skin Resp Fact/ Shark/Phenyl Mercur (Hemorrhoidal Supp) 1 ea BID PRN [place] FOR HEMORROID PAIN/ITCHING; Start 10/29/18 at 21:00 Lubiprostone (Amitiza) 24 mcg BID PO Last administered on 10/30/18at 08:50; Admin Dose 24 MCG; Start 10/29/18 at 21:00 Assessment/Plan Hospital Course (Demo Recall) IMPRESSION AND PLAN: 1. Likely small cell lung cancer given central perihilar mass. 2. Possible gastrointestinal bleed, status post RBC scan. 3. Encephalopathy. 4. Failure to thrive. 5. Possible postobstructive pneumonia. RECOMMENDATIONS: 1. Supplemental O2. 2. Bronchodilators. 3. Antibiotics. 4. We discussed with next of kin regarding goals of care as overall prognosis is extremely poor. Consider hospice evaluation ALYSSA BRUCE MD, [facility] Oct 30, 2018 11:34
--- NOTE | 2018-10-30 12:27 | PN ---
Date/Time of Note Date/Time of Note DATE: 10/30/18 TIME: 12:22 Assessment/Plan VTE Prophylaxis Risk score (from Ns)>0 risk: 4 SCD applied (from [facility] [place] Yes Pharmacological prophylaxis: NA/contraindicated Pharm contraindication: bleeding Lines/Catheters IV C[facility] Type (from [facility] Peripheral IV Urinary Cath still in place: Yes Reason Cath still needed: other (indicate) (monitor I&O) Assessment/Plan Hospital Course Assessment and plan 1. Suspect GI bleed. Organ Pipe Maker Metal consulted. GI bleed scan: No definite abnormal areas of increased activity up to 60 minutes post injection.. Improved. Monitor H&H trend Possible emergent colonoscopy if worse. 2. Encephalopathy. Head CT showed moderate white matter disease and prominent atherosclerosis of the internal carotid and vertebral artery otherwise no acute finding. Continue reorientation. 3. Failure to thrive. social media marketing specialist/pillowcase maker following. follow dietitian recommendations 4. Hyponatremia. improved 5. Hypokalemia. monitor and replete as needed 6. Pneumonia. undercutter operator following. continue abx 7. Large right hilar/perihilar mass is identified, invading into the adjacent paratracheal and subcarinal mediastinum, causing severe stenosis versus occlusion of the right lower lobe bronchus, compatible with primary lung malignancy. Oncologist consulted. f/u recommendations palliative care consult following Disposition plan. No POA at this time. distillery worker following. May need bioethics to discuss goals of care. Will f/u social media marketing specialist. Discussed POC with Dr. Crow Result Diagram: 10/30/18 0502 10/30/18 0502 Results 24hrs Laboratory Tests Test 10/29/18 12:28 10/30/18 05:02 Hemoglobin 12.2 11.3 L Hematocrit 37.3 33.9 L White Blood Count 8.3 Red Blood Count 3.60 L Mean Corpuscular Volume 94.2 Mean Corpuscular Hemoglobin 31.4 Mean Corpuscular Hemoglobin Concent 33.3 Red Cell Distribution Width 12.1 Platelet Count 210 Mean Platelet Volume 11.8 H Immature Granulocytes % 0.400 Neutrophils % 71.0 Lymphocytes % 14.7 L Monocytes % 11.3 H Eosinophils % 2.4 Basophils % 0.2 Nucleated Red Blood Cells % 0.0 Immature Granulocytes # 0.030 Neutrophils # 5.9 Lymphocytes # 1.2 Monocytes # 0.9 Eosinophils # 0.2 Basophils # 0.0 Nucleated Red Blood Cells # 0.0 Sodium Level 137 Potassium Level 3.5 Chloride Level 105 Carbon Dioxide Level 26 Anion Gap 6 Blood Urea Nitrogen 4 L Creatinine 0.58 Est Glomerular Filtrat Rate mL/min Glucose Level 108 Calcium Level 9.9 Subjective 24 Hr Interval Summary Free Text/Dictation still confused. Was eating with MARKER MACHINE ATTENDANT during visit. Exam/Review of Systems Exam Vitals Vital Signs Date Temp Pulse Resp B/P (MAP) Pulse Ox O2 O2 Flow FiO2 Time Delivery Rate 10/30/18 97.9 67 20 127/71 96 08:35 (89) 10/30/18 Room Air 02:32 Intake and Output 10/29/18 10/29/18 10/30/18 1515:00 23:00 07:00 IntakeIntake Total 550 ml 420 ml 1000 ml OutputOutput Total 1250 ml 650 ml BalanceBalance 550 ml -830 ml 350 ml Exam Constitutional: alert; No oriented Psych: anxiety Head: normocephalic Respiratory: no obvious wheezing/rhonchi Cardiovascular: regular rate and rhythm Gastrointestinal: soft, non-tender Musculoskeletal: No swelling Neurological: No nl mental status Skin: nl turgor Results Results 24hrs Laboratory Tests Test 10/29/18 12:28 10/30/18 05:02 Hemoglobin 12.2 11.3 L Hematocrit 37.3 33.9 L White Blood Count 8.3 Red Blood Count 3.60 L Mean Corpuscular Volume 94.2 Mean Corpuscular Hemoglobin 31.4 Mean Corpuscular Hemoglobin Concent 33.3 Red Cell Distribution Width 12.1 Platelet Count 210 Mean Platelet Volume 11.8 H Immature Granulocytes % 0.400 Neutrophils % 71.0 Lymphocytes % 14.7 L Monocytes % 11.3 H Eosinophils % 2.4 Basophils % 0.2 Nucleated Red Blood Cells % 0.0 Immature Granulocytes # 0.030 Neutrophils # 5.9 Lymphocytes # 1.2 Monocytes # 0.9 Eosinophils # 0.2 Basophils # 0.0 Nucleated Red Blood Cells # 0.0 Sodium Level 137 Potassium Level 3.5 Chloride Level 105 Carbon Dioxide Level 26 Anion Gap 6 Blood Urea Nitrogen 4 L Creatinine 0.58 Est Glomerular Filtrat Rate mL/min Glucose Level 108 Calcium Level 9.9 Medications Medication Current Medications IV Flush (NS 3 ml) 3 ml PER PROTOCOL IV ; Start 10/25/18 at 23:00 Ondansetron HCl (Zofran Inj) 4 mg Q6H PRN IV NAUSEA/VOMITING; Start 10/25/18 at 23:00 Acetaminophen (Tylenol Supp) 650 mg Q6H PRN [place] .PAIN 1-3 OR TEMP; Start 10/25/18 at 23:00 Heparin Sodium (Porcine) (Heparin (5000 Units/1ml)) 5,000 unit Q12 SC Last administered on 10/27/18 20:32; Admin Dose 5,000 UNIT; Start 10/26/18 at 09:00; Status Hold Albuterol/ Ipratropium (Duoneb) 3 ml Q2H RESP THERAPY PRN HHN SHORTNESS OF BREATH; Start 10/25/18 at 23:00 Ceftriaxone Sodium 50 ml @ 100 mls/hr Q12H IVPB Last administered on 10/30/18 08:50; Admin Dose 100 MLS/HR; Start 10/26/18 at 08:00 Azithromycin 250 ml @ 250 mls/hr Q24H IVPB Last administered on 10/29/18 23:16; Admin Dose 250 MLS/HR; Start 10/26/18 at 22:00 Lorazepam (Ativan) 1 mg Q6H PRN IV ANXIETY Last administered on 10/29/18 17:34; Admin Dose 1 MG; Start 10/26/18 at 15:30 Potassium Chloride/Dextrose/ Sod Cl 1,000 ml @ 75 mls/hr [id number] IV Last administered on 10/30/18 05:34; Admin Dose 75 MLS/HR; Start 10/28/18 at 19:00 Thiamine HCl (Vitamin B1) 100 mg DAILY PO Last administered on 10/30/18 08:50; Admin Dose 100 MG; Start 10/29/18 at 09:00 Skin Resp Fact/ Shark/Phenyl Mercur (Hemorrhoidal Supp) 1 ea BID PRN [place] FOR HEMORROID PAIN/ITCHING; Start 10/29/18 at 21:00 Lubiprostone (Amitiza) 24 mcg BID PO Last administered on 10/30/18 08:50; Admin Dose 24 MCG; Start 10/29/18 at 21:00 TEMO ELLISON NP Oct 30, 2018 12:27
--- NOTE | 2018-10-30 13:07 | CONS ---
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 STAGING WITH CT CHEST WITH IV CONTRAST AND CT ABD/PELVIS WITH AND WITHOUT IV CONTRAST- REVIEWED BIOCHEM W-UP- UNREMARKABLE TUMOR MARKERS-NEG PER RN - NO FAMILY AVAILABLE PT HAS 2 FRIENDS, WHO ARE GOING TO MAKE A DECISION . SOCIAL SERVICE INVOLVED PALLIATIVE CARE EVAL DOESN'T LOOK LIKE PT A GOOD CANDIDATE FOR AGGRESSIVE TREATMENT POS REFERRAL TO BIOETHICS COMMITTEE TO REVIEW THE CASE PALLIATIVE CARE EVAL AND F-UP Altered mental status possibly due to hypernatremia. CT BRAIN - NEG COPD. Patient been a current smoker. Advanced dementia. Emaciated state. Consultation Date/Type/Reason Admit Date/Time Oct 25, 2018 at 22:31 Initial Consult Date 10/28/18 Type of Consult [facility] Requesting Provider: TEMO ELLISON NP Date/Time of Note DATE: 10/30/18 TIME: 13:07 24 HR Interval Summary Free Text/Dictation ALL NOTED NAD Exam/Review of Systems Exam Vitals Vital Signs Date Temp Pulse Resp B/P (MAP) Pulse Ox O2 O2 Flow FiO2 Time Delivery Rate 10/30/18 97.9 67 20 127/71 96 08:35 (89) 10/30/18 Room Air 02:32 Intake and Output 10/29/18 10/29/18 10/30/18 1515:00 23:00 07:00 IntakeIntake Total 550 ml 420 ml 1000 ml OutputOutput Total 1250 ml 650 ml BalanceBalance 550 ml -830 ml 350 ml Exam H EENT exam; supple neck, no JVD. No lymphadenopathy. Midline trachea. No thyromegaly. Patient has multiple carious teeth. No neck masses. Chest exam; diminished breath sounds bilaterally. S1-S2 audible, no murmurs. Regular rhythm. Abdomen exam; soft, nondistended. No organomegaly. Bowel sounds audible. Extremity exam; no peripheral edema clubbing. RELAY WORKER exam; patient is awake alert able to talk. Appears confused. No focal motor deficit. Results Result Diagram: 10/30/18 0502 10/30/18 0502 Results 24hrs Laboratory Tests Test 10/30/18 05:02 White Blood Count 8.3 Red Blood Count 3.60 L Hemoglobin 11.3 L Hematocrit 33.9 L Mean Corpuscular Volume 94.2 Mean Corpuscular Hemoglobin 31.4 Mean Corpuscular Hemoglobin Concent 33.3 Red Cell Distribution Width 12.1 Platelet Count 210 Mean Platelet Volume 11.8 H Immature Granulocytes % 0.400 Neutrophils % 71.0 Lymphocytes % 14.7 L Monocytes % 11.3 H Eosinophils % 2.4 Basophils % 0.2 Nucleated Red Blood Cells % 0.0 Immature Granulocytes # 0.030 Neutrophils # 5.9 Lymphocytes # 1.2 Monocytes # 0.9 Eosinophils # 0.2 Basophils # 0.0 Nucleated Red Blood Cells # 0.0 Sodium Level 137 Potassium Level 3.5 Chloride Level 105 Carbon Dioxide Level 26 Anion Gap 6 Blood Urea Nitrogen 4 L Creatinine 0.58 Est Glomerular Filtrat Rate mL/min Glucose Level 108 Calcium Level 9.9 Medications Medication Current Medications IV Flush (NS 3 ml) 3 ml PER PROTOCOL IV ; Start 10/25/18 at 23:00 Ondansetron HCl (Zofran Inj) 4 mg Q6H PRN IV NAUSEA/VOMITING; Start 10/25/18 at 23:00 Acetaminophen (Tylenol Supp) 650 mg Q6H PRN [place] .PAIN 1-3 OR TEMP; Start 10/25/18 at 23:00 Heparin Sodium (Porcine) (Heparin (5000 Units/1ml)) 5,000 unit Q12 SC Last administered on 10/27/18at 20:32; Admin Dose 5,000 UNIT; Start 10/26/18 at 09:00; Status Hold Albuterol/ Ipratropium (Duoneb) 3 ml Q2H RESP THERAPY PRN HHN SHORTNESS OF BREATH; Start 10/25/18 at 23:00 Ceftriaxone Sodium 50 ml @ 100 mls/hr Q12H IVPB Last administered on 10/30/18at 08:50; Admin Dose 100 MLS/HR; Start 10/26/18 at 08:00 Azithromycin 250 ml @ 250 mls/hr Q24H IVPB Last administered on 10/29/18at 23:16; Admin Dose 250 MLS/HR; Start 10/26/18 at 22:00 Lorazepam (Ativan) 1 mg Q6H PRN IV ANXIETY Last administered on 10/29/18at 17:34; Admin Dose 1 MG; Start 10/26/18 at 15:30 Potassium Chloride/Dextrose/ Sod Cl 1,000 ml @ 75 mls/hr [id number] IV Last administered on 10/30/18at 05:34; Admin Dose 75 MLS/HR; Start 10/28/18 at 19:00 Thiamine HCl (Vitamin B1) 100 mg DAILY PO Last administered on 10/30/18at 08:50; Admin Dose 100 MG; Start 10/29/18 at 09:00 Skin Resp Fact/ Shark/Phenyl Mercur (Hemorrhoidal Supp) 1 ea BID PRN [place] FOR HEMORROID PAIN/ITCHING; Start 10/29/18 at 21:00 Lubiprostone (Amitiza) 24 mcg BID PO Last administered on 10/30/18 08:50; Admin Dose 24 MCG; Start 10/29/18 at 21:00 MARSHAL CHINO MD Oct 30, 2018 13:07
[2018-10-30 14:05] VITALS: BP 120/63; PULSE 80; RESP 18
[2018-10-30] MEDS: LORAZEPAM 2 MG INJ IV PRN (15:49)
[2018-10-30 20:15] VITALS: BP 125/67; PULSE 74; RESP 18
[2018-10-30] MEDS: AZITHROMYCIN 500MG/NS (PMX) 250 ML IVPB SCH (22:19)
[2018-10-31 01:40] VITALS: BP 120/64; PULSE 70; RESP 17
[2018-10-31] MEDS: CEFTRIAXONE 1 GM/50 ML (PMX) 50 ML IVPB SCH ×2 (08:40→20:09)
[2018-10-31] MEDS: LUBIPROSTONE 24 MCG CAP PO SCH ×2 (08:40→20:31)
[2018-10-31] MEDS: THIAMINE 100 MG TAB PO SCH (08:41)
--- NOTE | 2018-10-31 12:14 | PN ---
Date/Time of Note Date/Time of Note DATE: 10/31/18 TIME: 12:11 Assessment/Plan VTE Prophylaxis Risk score (from Ns)>0 risk: 4 SCD applied (from Ns): Yes Pharmacological prophylaxis: NA/contraindicated Pharm contraindication: bleeding Lines/Catheters IV [facility]ter Type (from [facility]): Peripheral IV Urinary Cath still in place: Yes Reason Cath still needed: other (indicate) (monitor I&O) Assessment/Plan Hospital Course Assessment and plan #Vaginal bleeding. Will get pelvic ultrasound. DISTRICT MANAGER MAJOR ACCOUNTS SALES consult pending clinical course. Monitor H&H trend. Transfuse blood products as needed. # Suspect GI bleed. Email Operations Manager consulted. GI bleed scan: No definite abnormal areas of increased activity up to 60 minutes post injection.. Improved. Monitor H&H trend Possible emergent colonoscopy if worse. # Encephalopathy. Head CT showed moderate white matter disease and prominent atherosclerosis of the internal carotid and vertebral artery otherwise no acute finding. Continue reorientation. # Failure to thrive. neonatal social worker/case reviewer following. follow dietitian recommendations # Hyponatremia. improved # Hypokalemia. monitor and replete as needed # Pneumonia. glass mold repairer following. continue abx # Large right hilar/perihilar mass is identified, invading into the adjacent paratracheal and subcarinal mediastinum, causing severe stenosis versus occlusion of the right lower lobe bronchus, compatible with primary lung malignancy. Oncologist consulted. f/u recommendations palliative care consult following Disposition plan. Noted with new vaginal bleeding. Source unknown. Will get pelvic ultrasound. DISTRICT MANAGER MAJOR ACCOUNTS SALES consult to follow. Will need bioethics meeting regarding goals of care for patient. No POA available at this time. Patient not alert and oriented. Patient unable to make decisions for herself at this time. instrument worker following. Discussed POC with Dr. Crow Result Diagram: 10/31/18 0443 10/31/183 Results 24hrs Laboratory Tests Test 10/31/18 04:43 White Blood Count 8.8 Red Blood Count 3.60 L Hemoglobin 11.0 L Hematocrit 33.8 L Mean Corpuscular Volume 93.9 Mean Corpuscular Hemoglobin 30.6 Mean Corpuscular Hemoglobin Concent 32.5 Red Cell Distribution Width 12.3 Platelet Count 218 Mean Platelet Volume 11.3 H Immature Granulocytes % 0.500 H Neutrophils % 72.1 Lymphocytes % 13.7 L Monocytes % 11.0 Eosinophils % 2.5 Basophils % 0.2 Nucleated Red Blood Cells % 0.0 Immature Granulocytes # 0.040 H Neutrophils # 6.3 Lymphocytes # 1.2 Monocytes # 1.0 H Eosinophils # 0.2 Basophils # 0.0 Nucleated Red Blood Cells # 0.0 Sodium Level 136 Potassium Level 3.8 Chloride Level 104 Carbon Dioxide Level 28 Anion Gap 4 L Blood Urea Nitrogen 3 L Creatinine 0.65 Est Glomerular Filtrat Rate mL/min Glucose Level 121 Calcium Level 9.8 Subjective 24 Hr Interval Summary Free Text/Dictation Patient resting at this time. Discussed with RN. Patient noted with vaginal bleeding with clots. Denies any shortness of breath at this time. Exam/Review of Systems Exam Vitals Vital Signs Date Temp Pulse Resp B/P (MAP) Pulse Ox O2 O2 Flow FiO2 Time Delivery Rate 10/31/18 98.0 70 17 120/64 95 01:40 (82) 10/30/18 Room Air 14:05 Intake and Output 10/30/18 10/30/18 10/31/18 1515:00 23:00 07:00 IntakeIntake Total 410 ml 1000 ml 1000 ml OutputOutput Total 1850 ml BalanceBalance 410 ml 1000 ml -850 ml Exam Constitutional: alert; No oriented Psych: anxiety Head: normocephalic Respiratory: no obvious wheezing/rhonchi Cardiovascular: regular rate and rhythm Gastrointestinal: soft, non-tender Musculoskeletal: No swelling Neurological: No nl mental status Skin: nl turgor Results Results 24hrs Laboratory Tests Test 10/31/18 04:43 White Blood Count 8.8 Red Blood Count 3.60 L Hemoglobin 11.0 L Hematocrit 33.8 L Mean Corpuscular Volume 93.9 Mean Corpuscular Hemoglobin 30.6 Mean Corpuscular Hemoglobin Concent 32.5 Red Cell Distribution Width 12.3 Platelet Count 218 Mean Platelet Volume 11.3 H Immature Granulocytes % 0.500 H Neutrophils % 72.1 Lymphocytes % 13.7 L Monocytes % 11.0 Eosinophils % 2.5 Basophils % 0.2 Nucleated Red Blood Cells % 0.0 Immature Granulocytes # 0.040 H Neutrophils # 6.3 Lymphocytes # 1.2 Monocytes # 1.0 H Eosinophils # 0.2 Basophils # 0.0 Nucleated Red Blood Cells # 0.0 Sodium Level 136 Potassium Level 3.8 Chloride Level 104 Carbon Dioxide Level 28 Anion Gap 4 L Blood Urea Nitrogen 3 L Creatinine 0.65 Est Glomerular Filtrat Rate mL/min Glucose Level 121 Calcium Level 9.8 Medications Medication Current Medications IV Flush (NS 3 ml) 3 ml PER PROTOCOL IV ; Start 10/25/18 at 23:00 Ondansetron HCl (Zofran Inj) 4 mg Q6H PRN IV NAUSEA/VOMITING; Start 10/25/18 at 23:00 Acetaminophen (Tylenol Supp) 650 mg Q6H PRN [place] .PAIN 1-3 OR TEMP; Start 10/25/18 at 23:00 Heparin Sodium (Porcine) (Heparin (5000 Units/1ml)) 5,000 unit Q12 SC Last administered on 10/27/18at 20:32; Admin Dose 5,000 UNIT; Start 10/26/18 at 09:00; Status Hold Albuterol/ Ipratropium (Duoneb) 3 ml Q2H RESP THERAPY PRN HHN SHORTNESS OF BREATH; Start 10/25/18 at 23:00 Ceftriaxone Sodium 50 ml @ 100 mls/hr Q12H IVPB Last administered on 10/31/18at 08:40; Admin Dose 100 MLS/HR; Start 10/26/18 at 08:00 Azithromycin 250 ml @ 250 mls/hr Q24H IVPB Last administered on 10/30/18at 22:19; Admin Dose 250 MLS/HR; Start 10/26/18 at 22:00 Lorazepam (Ativan) 1 mg Q6H PRN IV ANXIETY Last administered on 10/30/18at 15:49; Admin Dose 1 MG; Start 10/26/18 at 15:30 Potassium Chloride/Dextrose/ Sod Cl 1,000 ml @ 75 mls/hr [id number] IV Last administered on 10/30/18at 20:10; Admin Dose 75 MLS/HR; Start 10/28/18 at 19:00 Thiamine HCl (Vitamin B1) 100 mg DAILY PO Last administered on 10/31/18at 08:41; Admin Dose 100 MG; Start 10/29/18 at 09:00 Skin Resp Fact/ Shark/Phenyl Mercur (Hemorrhoidal Supp) 1 ea BID PRN [place] FOR HEMORROID PAIN/ITCHING; Start 10/29/18 at 21:00 Lubiprostone (Amitiza) 24 mcg BID PO Last administered on 10/31/18at 08:40; Admin Dose 24 MCG; Start 10/29/18 at 21:00 TEMO ELLISON NP Oct 31, 2018 12:14
[2018-10-31] MEDS: D5W-0.45 NACL + KCL 20 MEQ 1,000 ML IV SCH ×3 (12:30→21:17)
--- NOTE | 2018-10-31 13:00 | CONS ---
Assessment/Plan Assessment/Plan Assessment/Plan (Daily) Patient is a 73-year-old female who was admitted to [facility] on 10/25/2017. It is not documented as to who brought her into the hospital but she presented with symptoms of failure to thrive encephalopathy fluid electrolyte abnormalities patient was worked up for encephalopathy had sent CT scan showed no acute pathology at that time there was an incomplete database. Brought this hospitalization has been no significant improvement in patient's overall clinical condition in fact has developed a vaginal bleeding as of this last 24 hours and GI bleed also GI bleed scan negative.Seen by Psych. GI Oncology currently there are friends who visit her but as of yet no determinati on made as to therre ability to safely take care of her at home but probably not as pt id total body care. I suggest asking Psych cosmetic sales consultant to return and make a determination of competency. Then issue of GI and vaginal bleed completed . Issue of nutrition should be addressedd with [employer] a. Pt cannot be referred to Hospice as pt cannot sign consent and friends are not legal DPOA as far as I know at this time. I will speak with SWS , agree with all other care and work uop for bleeding. Consultation Date/Type/Reason Admit Date/Time Oct 25, 2018 at 22:31 Date/Time of Note DATE: 10/31/18 TIME: 12:57 cannot assist Past Medical History Home Meds No Active Prescriptions or Reported Meds Medications Current Medications IV Flush (NS 3 ml) 3 ml PER PROTOCOL IV ; Start 10/25/18 at 23:00 Ondansetron HCl (Zofran Inj) 4 mg Q6H PRN IV NAUSEA/VOMITING; Start 10/25/18 at 23:00 Acetaminophen (Tylenol Supp) 650 mg Q6H PRN [place] .PAIN 1-3 OR TEMP; Start 10/25/18 at 23:00 Heparin Sodium (Porcine) (Heparin (5000 Units/1ml)) 5,000 unit Q12 SC Last administered on 10/27/18at 20:32; Admin Dose 5,000 UNIT; Start 10/26/18 at 09:00; Status Hold Albuterol/ Ipratropium (Duoneb) 3 ml Q2H RESP THERAPY PRN HHN SHORTNESS OF BREATH; Start 10/25/18 at 23:00 Ceftriaxone Sodium 50 ml @ 100 mls/hr Q12H IVPB Last administered on 10/31/18 08:40; Admin Dose 100 MLS/HR; Start 10/26/18 at 08:00 Azithromycin 250 ml @ 250 mls/hr Q24H IVPB Last administered on 10/30/18 22:19; Admin Dose 250 MLS/HR; Start 10/26/18 at 22:00 Lorazepam (Ativan) 1 mg Q6H PRN IV ANXIETY Last administered on 10/30/18 15:49; Admin Dose 1 MG; Start 10/26/18 at 15:30 Potassium Chloride/Dextrose/ Sod Cl 1,000 ml @ 75 mls/hr [id number] IV Last administered on 10/31/18 12:30; Admin Dose 75 MLS/HR; Start 10/28/18 at 19:00 Thiamine HCl (Vitamin B1) 100 mg DAILY PO Last administered on 10/31/18 08:41; Admin Dose 100 MG; Start 10/29/18 at 09:00 Skin Resp Fact/ Shark/Phenyl Mercur (Hemorrhoidal Supp) 1 ea BID PRN [place] FOR HEMORROID PAIN/ITCHING; Start 10/29/18 at 21:00 Lubiprostone (Amitiza) 24 mcg BID PO Last administered on 10/31/18 08:40; Admin Dose 24 MCG; Start 10/29/18 at 21:00 Allergies: Coded Allergies: No Known Allergy (Unverified , 10/25/18) Social History Smoking Status: Former smoker Other Social History unknown past medical hx Exam/Review of Systems Exam Vitals Vital Signs Date Temp Pulse Resp B/P (MAP) Pulse Ox O2 O2 Flow FiO2 Time Delivery Rate 10/31/18 98.0 70 17 120/64 95 01:40 (82) 10/30/18 Room Air 14:05 Intake and Output 10/30/18 10/30/18 10/31/18 1515:00 23:00 07:00 IntakeIntake Total 410 ml 1000 ml 1000 ml OutputOutput Total 1850 ml BalanceBalance 410 ml 1000 ml -850 ml Constitutional: frail, other (confused) Psych: confusion Head: normocephalic, atraumatic Eyes: nl conjunctiva, EOMI, nl lids, nl sclera, PERRL; No icteric, No fundi, disc, No other ENMT: nl external ears & nose, nl lips & teeth, nl nasal mucosa & septum; No mucosa pink and moist, No intubated, No tympanic membranes, No other Neck: supple, non-tender; No jvd, No bruits, No masses, No thyromegaly, No nuchal rigidity, No other Respiratory: clear to auscultation, normal air movement; No congested cough, No crackles/rales, No diminished breath sounds, No intercostal retraction, No labored breathing, No respirations, No tactile fr emitus, No wheezing, No other Cardiovascular: regular rate and rhythm, nl pulses; No bruits, No diastolic murmur, No edema, No gallop, No irregular rhythm, No jugular venous distention (JVD), No murmurs/extra sounds, No rub, No systolic murmur, No S3, No S4, No other Gastrointestinal: soft, nl liver, spleen, non-tender; No ascites, No bowel sounds, No distended, No firm, No hepatomegaly, No mass, No rebound or guarding, No splenomegaly, No surgical scars, No tender, No other Neurological: other (oriented timees 1 person motor sensory grossly intact does follow simlple commamnds) Results Result Diagram: 10/31/18 0443 10/31/18 0443 Results 24hrs Laboratory Tests Test 10/31/18 04:43 White Blood Count 8.8 Red Blood Count 3.60 L Hemoglobin 11.0 L Hematocrit 33.8 L Mean Corpuscular Volume 93.9 Mean Corpuscular Hemoglobin 30.6 Mean Corpuscular Hemoglobin Concent 32.5 Red Cell Distribution Width 12.3 Platelet Count 218 Mean Platelet Volume 11.3 H Immature Granulocytes % 0.500 H Neutrophils % 72.1 Lymphocytes % 13.7 L Monocytes % 11.0 Eosinophils % 2.5 Basophils % 0.2 Nucleated Red Blood Cells % 0.0 Immature Granulocytes # 0.040 H Neutrophils # 6.3 Lymphocytes # 1.2 Monocytes # 1.0 H Eosinophils # 0.2 Basophils # 0.0 Nucleated Red Blood Cells # 0.0 Sodium Level 136 Potassium Level 3.8 Chloride Level 104 Carbon Dioxide Level 28 Anion Gap 4 L Blood Urea Nitrogen 3 L Creatinine 0.65 Est Glomerular Filtrat Rate mL/min Glucose Level 121 Calcium Level 9.8 Medications Medication Current Medications IV Flush (NS 3 ml) 3 ml PER PROTOCOL IV ; Start 10/25/18 at 23:00 Ondansetron HCl (Zofran Inj) 4 mg Q6H PRN IV NAUSEA/VOMITING; Start 10/25/18 at 23:00 Acetaminophen (Tylenol Supp) 650 mg Q6H PRN [place] .PAIN 1-3 OR TEMP; Start 10/25/18 at 23:00 Heparin Sodium (Porcine) (Heparin (5000 Units/1ml)) 5,000 unit Q12 SC Last administered on 10/27/18 20:32; Admin Dose 5,000 UNIT; Start 10/26/18 at 09:00; Status Hold Albuterol/ Ipratropium (Duoneb) 3 ml Q2H RESP THERAPY PRN HHN SHORTNESS OF BREATH; Start 10/25/18 at 23:00 Ceftriaxone Sodium 50 ml @ 100 mls/hr Q12H IVPB Last administered on 10/31/18 08:40; Admin Dose 100 MLS/HR; Start 10/26/18 at 08:00 Azithromycin 250 ml @ 250 mls/hr Q24H IVPB Last administered on 10/30/18 22:19; Admin Dose 250 MLS/HR; Start 10/26/18 at 22:00 Lorazepam (Ativan) 1 mg Q6H PRN IV ANXIETY Last administered on 10/30/18 15:49; Admin Dose 1 MG; Start 10/26/18 at 15:30 Potassium Chloride/Dextrose/ Sod Cl 1,000 ml @ 75 mls/hr [id number] IV Last administered on 10/31/18 12:30; Admin Dose 75 MLS/HR; Start 10/28/18 at 19:00 Thiamine HCl (Vitamin B1) 100 mg DAILY PO Last administered on 10/31/18 08:41; Admin Dose 100 MG; Start 10/29/18 at 09:00 Skin Resp Fact/ Shark/Phenyl Mercur (Hemorrhoidal Supp) 1 ea BID PRN [place] FOR HEMORROID PAIN/ITCHING; Start 10/29/18 at 21:00 Lubiprostone (Amitiza) 24 mcg BID PO Last administered on 10/31/18 08:40; Admin Dose 24 MCG; Start 10/29/18 at 21:00 DALLIN SNOW Oct 31, 2018 13:00
[2018-10-31 13:34] VITALS: BP 104/61; PULSE 102; RESP 15
[2018-10-31 19:48] VITALS: BP 100/58; PULSE 86; RESP 18
--- NOTE | 2018-10-31 21:46 | CONS ---
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 STAGING WITH CT CHEST WITH IV CONTRAST AND CT ABD/PELVIS WITH AND WITHOUT IV CONTRAST- REVIEWED BIOCHEM W-UP- UNREMARKABLE TUMOR MARKERS-NEG PER RN - NO FAMILY AVAILABLE PT HAS 2 FRIENDS, WHO ARE GOING TO MAKE A DECISION . SOCIAL SERVICE INVOLVED PALLIATIVE CARE EVAL DOESN'T LOOK LIKE PT A GOOD CANDIDATE FOR AGGRESSIVE TREATMENT POS REFERRAL TO BIOETHICS COMMITTEE TO REVIEW THE CASE PALLIATIVE CARE EVAL AND F-UP Altered mental status possibly due to hypernatremia. CT BRAIN - NEG COPD. Patient been a current smoker. Advanced dementia. Emaciated state. Consultation Date/Type/Reason Admit Date/Time Oct 25, 2018 at 22:31 Initial Consult Date 10/28/18 Type of Consult [facility] Requesting Provider: TEMO ELLISON NP Date/Time of Note DATE: 10/31/18 TIME: 21:46 24 HR Interval Summary Free Text/Dictation ALL NOTED NO ACTIVE BLEEDING NAD Exam/Review of Systems Exam Vitals Vital Signs Date Temp Pulse Resp B/P (MAP) Pulse Ox O2 O2 Flow FiO2 Time Delivery Rate 10/31/18 98.2 86 18 100/58 95 Room Air 19:48 (72) Intake and Output 10/30/18 10/30/18 10/31/18 1515:00 23:00 07:00 IntakeIntake Total 410 ml 1000 ml 1000 ml OutputOutput Total 1850 ml BalanceBalance 410 ml 1000 ml -850 ml Exam H EENT exam; supple neck, no JVD. No lymphadenopathy. Midline trachea. No thyromegaly. Patient has multiple carious teeth. No neck masses. Chest exam; diminished breath sounds bilaterally. S1-S2 audible, no murmurs. R egular rhythm. Abdomen exam; soft, nondistended. No organomegaly. Bowel sounds audible. Extremity exam; no peripheral edema clubbing. FLOORWORKER exam; patient is awake alert able to talk. Appears confused. No focal motor deficit. Results Result Diagram: 10/31/18 0443 10/31/18442 Results 24hrs Laboratory Tests Test 10/31/18 04:43 White Blood Count 8.8 Red Blood Count 3.60 L Hemoglobin 11.0 L Hematocrit 33.8 L Mean Corpuscular Volume 93.9 Mean Corpuscular Hemoglobin 30.6 Mean Corpuscular Hemoglobin Concent 32.5 Red Cell Distribution Width 12.3 Platelet Count 218 Mean Platelet Volume 11.3 H Immature Granulocytes % 0.500 H Neutrophils % 72.1 Lymphocytes % 13.7 L Monocytes % 11.0 Eosinophils % 2.5 Basophils % 0.2 Nucleated Red Blood Cells % 0.0 Immature Granulocytes # 0.040 H Neutrophils # 6.3 Lymphocytes # 1.2 Monocytes # 1.0 H Eosinophils # 0.2 Basophils # 0.0 Nucleated Red Blood Cells # 0.0 Sodium Level 136 Potassium Level 3.8 Chloride Level 104 Carbon Dioxide Level 28 Anion Gap 4 L Blood Urea Nitrogen 3 L Creatinine 0.65 Est Glomerular Filtrat Rate mL/min Glucose Level 121 Calcium Level 9.8 Medications Medication Current Medications IV Flush (NS 3 ml) 3 ml PER PROTOCOL IV ; Start 10/25/18 at 23:00 Ondansetron HCl (Zofran Inj) 4 mg Q6H PRN IV NAUSEA/VOMITING; Start 10/25/18 at 23:00 Acetaminophen (Tylenol Supp) 650 mg Q6H PRN [place] .PAIN 1-3 OR TEMP; Start 10/25/18 at 23:00 Heparin Sodium (Porcine) (Heparin (5000 Units/1ml)) 5,000 unit Q12 SC Last administered on 10/27/18at 20:32; Admin Dose 5,000 UNIT; Start 10/26/18 at 09:00; Status Hold Albuterol/ Ipratropium (Duoneb) 3 ml Q2H RESP THERAPY PRN HHN SHORTNESS OF BREATH; Start 10/25/18 at 23:00 Ceftriaxone Sodium 50 ml @ 100 mls/hr Q12H IVPB Last administered on 10/31/18at 20:09; Admin Dose 100 MLS/HR; Start 10/26/18 at 08:00 Azithromycin 250 ml @ 250 mls/hr Q24H IVPB Last administered on 10/30/18at 22:19; Admin Dose 250 MLS/HR; Start 10/26/18 at 22:00 Lorazepam (Ativan) 1 mg Q6H PRN IV ANXIETY Last administered on 10/30/18at 15:49; Admin Dose 1 MG; Start 10/26/18 at 15:30 Thiamine HCl (Vitamin B1) 100 mg DAILY PO Last administered on 10/31/18at 08:41; Admin Dose 100 MG; Start 10/29/18 at 09:00 Skin Resp Fact/ Shark/Phenyl Mercur (Hemorrhoidal Supp) 1 ea BID PRN IN FOR HEMORROID PAIN/ITCHING; Start 10/29/18 at 21:00 Lubiprostone (Amitiza) 24 mcg BID PO Last administered on 10/31/18at 20:31; Admin Dose 24 MCG; Start 10/29/18 at 21:00 Potassium Chloride/Dextrose/ Sod Cl 1,000 ml @ 75 mls/hr [id number] IV Last administered on 10/31/18at 21:17; Admin Dose 75 MLS/HR; Start 10/31/18 at 21:00 MARSHAL CHINO MD Oct 31, 2018 21:46
[2018-10-31] MEDS: AZITHROMYCIN 500MG/NS (PMX) 250 ML IVPB SCH (22:10)
[2018-11-01 02:10] VITALS: BP 111/53; PULSE 79; RESP 16
[2018-11-01 07:32] VITALS: BP 114/56; PULSE 74; RESP 18
[2018-11-01] MEDS: THIAMINE 100 MG TAB PO SCH (08:31)
[2018-11-01] MEDS: LUBIPROSTONE 24 MCG CAP PO SCH ×2 (08:31→20:41)
[2018-11-01] MEDS: CEFTRIAXONE 1 GM/50 ML (PMX) 50 ML IVPB SCH ×2 (08:32→20:41)
--- NOTE | 2018-11-01 09:46 | PN ---
Date/Time of Note Date/Time of Note DATE: 11/01/18 TIME: 09:39 Assessment/Plan VTE Prophylaxis Risk score (from Nsg)>0 risk: 4 SCD applied (from Nsg): Yes Pharmacological prophylaxis: other (scds) Lines/Catheters IV Catheter Type (from Nrs): Peripheral IV Urinary Cath still in place: Yes Reason Cath still needed: other (indicate) (monitor output) Assessment/Plan Hospital Course Assessment/Plan Assessment: Vaginal bleeding Hematochezia- resolved Large right hilar/perihilar mass is identified, invading into the adjacent paratracheal and subcarinal mediastinum, causing severe stenosis versus occlusion of the right lower lobe bronchus, compatible with primary lung malignancy. -Oncology following will get palliative care consult Encephalopathy - CT brain: Moderate white matter disease and prominent atherosclerosis of the internal carotid and vertebral artery otherwise no acute finding. PNA Failure to thrive. Hyponatremia. Hypokalemia. Plan: Continue GI regimen Rectal bleeding has resolved- Patient now with vaginal bleeding- and acute drop in hgb- work-up per hospitalist GI will sign off but will be available upon reconsult as needed Patient seen in collaboration with Dr. Thornton Subjective: Pt remains confused, resting in bed. No c.o GI complaints at this time. Exam PHYSICAL EXAMINATION: GENERAL:Alert & oriented x 1, in no acute distress SKIN: No lesions HEAD: Normocephalic, atraumatic, no tenderness. EYES: Pupils equal reactive to light, no discharge. CARDIOVASCULAR: Heart: Regular rate and rhythm RESPIRATORY: Diminished GASTROINTESTINAL AND LIVER: Abdomen: Soft, generalized tenderness, non- distended, no hernias, no masses, no organomegaly, no ascites, no guarding, no rebound tenderness, normoactive bowel sounds. Rectal: Deferred. Result Diagram: 11/01/18 0449 11/01/18 0445 Results 24hrs Laboratory Tests Test 11/01/18 04:45 11/01/18 04:49 Sodium Level 133 L Potassium Level 4.0 Chloride Level 103 Carbon Dioxide Level 24 Anion Gap 6 Blood Urea Nitrogen 7 Creatinine 0.67 Est Glomerular Filtrat Rate mL/min Glucose Level 142 Calcium Level 9.3 White Blood Count 13.0 #H Red Blood Count 2.76 #L Hemoglobin 8.6 #L Hematocrit 25.8 #L Mean Corpuscular Volume 93.5 Mean Corpuscular Hemoglobin 31.2 Mean Corpuscular Hemoglobin Concent 33.3 Red Cell Distribution Width 12.6 Platelet Count 217 Mean Platelet Volume 11.2 H Immature Granulocytes % 0.500 H Neutrophils % 75.5 Lymphocytes % 11.7 L Monocytes % 11.4 H Eosinophils % 0.7 Basophils % 0.2 Nucleated Red Blood Cells % 0.0 Immature Granulocytes # 0.060 H Neutrophils # 9.8 H Lymphocytes # 1.5 Monocytes # 1.5 H Eosinophils # 0.1 Basophils # 0.0 Nucleated Red Blood Cells # 0.0 Exam/Review of Systems Exam Vitals Vital Signs Date Temp Pulse Resp B/P (MAP) Pulse Ox O2 O2 Flow FiO2 Time Delivery Rate 11/01/18 98.4 74 18 114/56 96 07:32 (75) 11/01/18 Room Air 02:10 Intake and Output 10/31/18 10/31/18 11/01/18 1515:00 23:00 07:00 IntakeIntake Total 350 ml 597.5 ml OutputOutput Total 120 ml 1200 ml BalanceBalance 350 ml 477.5 ml -1200 ml Results Results 24hrs Laboratory Tests Test 11/01/18 04:45 11/01/18 04:49 Sodium Level 133 L Potassium Level 4.0 Chloride Level 103 Carbon Dioxide Level 24 Anion Gap 6 Blood Urea Nitrogen 7 Creatinine 0.67 Est Glomerular Filtrat Rate mL/min Glucose Level 142 Calcium Level 9.3 White Blood Count 13.0 #H Red Blood Count 2.76 #L Hemoglobin 8.6 #L Hematocrit 25.8 #L Mean Corpuscular Volume 93.5 Mean Corpuscular Hemoglobin 31.2 Mean Corpuscular Hemoglobin Concent 33.3 Red Cell Distribution Width 12.6 Platelet Count 217 Mean Platelet Volume 11.2 H Immature Granulocytes % 0.500 H Neutrophils % 75.5 Lymphocytes % 11.7 L Monocytes % 11.4 H Eosinophils % 0.7 Basophils % 0.2 Nucleated Red Blood Cells % 0.0 Immature Granulocytes # 0.060 H Neutrophils # 9.8 H Lymphocytes # 1.5 Monocytes # 1.5 H Eosinophils # 0.1 Basophils # 0.0 Nucleated Red Blood Cells # 0.0 Medications Medication Current Medications IV Flush (NS 3 ml) 3 ml PER PROTOCOL IV ; Start 10/25/18 at 23:00 Ondansetron HCl (Zofran Inj) 4 mg Q6H PRN IV NAUSEA/VOMITING; Start 10/25/18 at 23:00 Acetaminophen (Tylenol Supp) 650 mg Q6H PRN [place] .PAIN 1-3 OR TEMP; Start 10/25/18 at 23:00 Heparin Sodium (Porcine) (Heparin (5000 Units/1ml)) 5,000 unit Q12 SC Last administered on 10/27/18 20:32; Admin Dose 5,000 UNIT; Start 10/26/18 at 09:00; Status Hold Albuterol/ Ipratropium (Duoneb) 3 ml Q2H RESP THERAPY PRN HHN SHORTNESS OF BREATH; Start 10/25/18 at 23:00 Ceftriaxone Sodium 50 ml @ 100 mls/hr Q12H IVPB Last administered on 11/01/18 08:32; Admin Dose 100 MLS/HR; Start 10/26/18 at 08:00 Azithromycin 250 ml @ 250 mls/hr Q24H IVPB Last administered on 10/31/18 22:10; Admin Dose 250 MLS/HR; Start 10/26/18 at 22:00 Lorazepam (Ativan) 1 mg Q6H PRN IV ANXIETY Last administered on 10/30/18 15:49; Admin Dose 1 MG; Start 10/26/18 at 15:30 Thiamine HCl (Vitamin B1) 100 mg DAILY PO Last administered on 11/01/18 08:31; Admin Dose 100 MG; Start 10/29/18 at 09:00 Skin Resp Fact/ Shark/Phenyl Mercur (Hemorrhoidal Supp) 1 ea BID PRN [place] FOR HEMORROID PAIN/ITCHING; Start 10/29/18 at 21:00 Lubiprostone (Amitiza) 24 mcg BID PO Last administered on 11/01/18 08:31; Admin Dose 24 MCG; Start 10/29/18 at 21:00 Potassium Chloride/Dextrose/ Sod Cl 1,000 ml @ 75 mls/hr [id number] IV Last administered on 10/31/18 21:17; Admin Dose 75 MLS/HR; Start 10/31/18 at 21:00 YAZMIN SANCHEZ Nov 01, 2018 09:46
[2018-11-01] MEDS: D5W-0.45 NACL + KCL 20 MEQ 1,000 ML IV SCH ×3 (10:20→23:40)
--- NOTE | 2018-11-01 11:58 | CONS ---
Date/Time of Note Date/Time of Note DATE: 11/01/18 TIME: 11:55 Consult Date/Type/Reason Admit Date Oct 25, 2018 at 22:31 Type of Consult Psych Ordering Provider: TEMO ELLISON NP Subjective Patient is disorganized and confused, Mini-Mental status exam done and patient scored 4/30. Cognitively she is very impaired and has no capacity to make her own decisions Objective Patient Appearance: Appropriate dress Voice Loudness: Severely Soft/Quiet Mood and Affect Description: Anxious Mood or Affect: Anxious Speech Pattern: Clear Thought Process: Disorganized Hallucination Type: None Delusion Description: Present Assessment/Plan Recommendations Continue current anxiety meds Patient refused any other psych meds Cognitively she is very impaired and has no capacity to make her own decisions JUNIOR COOK NP Nov 01, 2018 11:58
--- NOTE | 2018-11-01 12:25 | CONS ---
Consult Date/Type/Reason Admit Date/Time Oct 25, 2018 at 22:31 Initial Consult Date 10/28/18 Type of Consult Pulmonary Requesting Provider: TEMO ELLISON NP Date/Time of Note DATE: 11/01/18 TIME: 12:24 Subjective Patient comfortable no respiratory distress. Objective Vital Signs Date Temp Pulse Resp B/P (MAP) Pulse Ox O2 O2 Flow FiO2 Time Delivery Rate 11/01/18 98.4 74 18 114/56 96 07:32 (75) 11/01/18 Room Air 02:10 Intake and Output 10/31/18 10/31/18 11/01/18 1515:00 23:00 07:00 IntakeIntake Total 350 ml 597.5 ml OutputOutput Total 120 ml 1200 ml BalanceBalance 350 ml 477.5 ml -1200 ml Exam VITAL SIGNS: NECK: Supple. No JVD or lymphadenopathy. CARDIAC: S1, S2, no added sounds or murmurs. CHEST: Diminished air entry bilaterally, but no rales or wheezes. ABDOMEN: Soft, nontender. No guarding or rebound. EXTREMITIES: No cyanosis, clubbing, or edema. NEUROLOGIC: Grossly intact. No focal deficits. Results/Medications Result Diagram: 11/01/18 0449 11/01/18 0445 Results 24 hrs Laboratory Tests Test 11/01/18 04:45 11/01/18 04:49 Sodium Level 133 L Potassium Level 4.0 Chloride Level 103 Carbon Dioxide Level 24 Anion Gap 6 Blood Urea Nitrogen 7 Creatinine 0.67 Est Glomerular Filtrat Rate mL/min Glucose Level 142 Calcium Level 9.3 White Blood Count 13.0 #H Red Blood Count 2.76 #L Hemoglobin 8.6 #L Hematocrit 25.8 #L Mean Corpuscular Volume 93.5 Mean Corpuscular Hemoglobin 31.2 Mean Corpuscular Hemoglobin Concent 33.3 Red Cell Distribution Width 12.6 Platelet Count 217 Mean Platelet Volume 11.2 H Immature Granulocytes % 0.500 H Neutrophils % 75.5 Lymphocytes % 11.7 L Monocytes % 11.4 H Eosinophils % 0.7 Basophils % 0.2 Nucleated Red Blood Cells % 0.0 Immature Granulocytes # 0.060 H Neutrophils # 9.8 H Lymphocytes # 1.5 Monocytes # 1.5 H Eosinophils # 0.1 Basophils # 0.0 Nucleated Red Blood Cells # 0.0 Medications Current Medications IV Flush (NS 3 ml) 3 ml PER PROTOCOL IV ; Start 10/25/18 at 23:00 Ondansetron HCl (Zofran Inj) 4 mg Q6H PRN IV NAUSEA/VOMITING; Start 10/25/18 at 23:00 Acetaminophen (Tylenol Supp) 650 mg Q6H PRN [place] .PAIN 1-3 OR TEMP; Start 10/25/18 at 23:00 Heparin Sodium (Porcine) (Heparin (5000 Units/1ml)) 5,000 unit Q12 SC Last administered on 10/27/18at 20:32; Admin Dose 5,000 UNIT; Start 10/26/18 at 09:00; Status Hold Albuterol/ Ipratropium (Duoneb) 3 ml Q2H RESP THERAPY PRN HHN SHORTNESS OF BREATH; Start 10/25/18 at 23:00 Ceftriaxone Sodium 50 ml @ 100 mls/hr Q12H IVPB Last administered on 11/01/18 08:32; Admin Dose 100 MLS/HR; Start 10/26/18 at 08:00 Azithromycin 250 ml @ 250 mls/hr Q24H IVPB Last administered on 10/31/18 22:10; Admin Dose 250 MLS/HR; Start 10/26/18 at 22:00 Lorazepam (Ativan) 1 mg Q6H PRN IV ANXIETY Last administered on 10/30/18at 15:49; Admin Dose 1 MG; Start 10/26/18 at 15:30 Thiamine HCl (Vitamin B1) 100 mg DAILY PO Last administered on 11/01/18 08:31; Admin Dose 100 MG; Start 10/29/18 at 09:00 Skin Resp Fact/ Shark/Phenyl Mercur (Hemorrhoidal Supp) 1 ea BID PRN [place] FOR HEMORROID PAIN/ITCHING; Start 10/29/18 at 21:00 Lubiprostone (Amitiza) 24 mcg BID PO Last administered on 11/01/18 08:31; Admin Dose 24 MCG; Start 10/29/18 at 21:00 Potassium Chloride/Dextrose/ Sod Cl 1,000 ml @ 75 mls/hr [id number] IV Last administered on 10/31/18at 21:17; Admin Dose 75 MLS/HR; Start 10/31/18 at 21:00 Assessment/Plan Hospital Course (Demo Recall) IMPRESSION AND PLAN: 1. Likely small cell lung cancer given central perihilar mass. 2. Possible gastrointestinal bleed, status post RBC scan. 3. Encephalopathy. 4. Failure to thrive. 5. Possible postobstructive pneumonia. RECOMMENDATIONS: 1. Supplemental O2. 2. Bronchodilators. 3. Antibiotics. 4. Palliative care consultation ALYSSA BRUCE MD, [facility] Nov 01, 2018 12:25
[2018-11-01 13:34] VITALS: BP 106/62; PULSE 73; RESP 18
--- NOTE | 2018-11-01 15:41 | PN ---
Date/Time of Note Date/Time of Note DATE: 11/01/18 TIME: 15:41 Assessment/Plan VTE Prophylaxis Risk score (from Nsg)>0 risk: 4 SCD applied (from Ns): No SCD contraindicated: other Pharmacological prophylaxis: NA/contraindicated Pharm contraindication: bleeding Lines/Catheters IV Catheter Type (from [facility]): Peripheral IV Urinary Cath still in place: Yes Reason Cath still needed: other (indicate) Assessment/Plan Hospital Course SUBJECTIVE: Denies any pain. OBJECTIVE: Physical Exam General: Thin, frail looking, 73 year-old female lying in bed in no apparent distress. HEENT: Normocephalic, atraumatic. Eyes: Anicteric sclerae, conjunctivae clear. ENT: Nasal septum midline, oral mucosa moist. Neck supple, no JVD noticed. Respiratory: Bilaterally diminished breath sounds. No use of accessory muscles of respiration. No adventitious breath sounds. Cardiovascular: S1, S2 heard. Regular rate and rhythm Abdomen: Soft, nontender, and nondistended. Bowel sounds positive in all 4 quadrants. Genitourinary: Deferred. Extremities: No cyanosis, no clubbing, no edema. Peripheral pulses palpable. Neurologic: The patient is awake and alert. Oriented to self. Skin: Normal skin turgor. No skin rashes. Labs & Vitals per chart ASSESSMENT & PLAN 73-year-old female who was brought in by paramedics because of altered level of consciousness, who was admitted to inpatient setting for further treatment and evaluation. 1. Acute encephalopathy. Unknown baseline mental status. Brain imaging negative for any acute infarcts. 2. Large right hilar lung mass, directly invading into the adjacent subcarinal mediastinum, compatible with primary lung malignancy. Being followed by pulmonology. Not an appropriate candidate for aggressive management since the patient remains confused and has no next of kin to make decisions on her behalf. 3. Hematochezia. Status post evaluation by gastroenterology. Monitor H&H closely. Transfuse as needed. 4. Vaginal bleeding. Patient refused transvaginal exam. Pelvic ultrasound showed mildly enlarged endometrium. 5. Normocytic anemia. Etiology could be multifactorial including underlying malignancy and acute blood loss. Monitor H&H closely. Transfuse blood products as indicated. 6. Failure to thrive. Social work following. 7. Moderate to severe protein-calorie malnutrition. S/P RD evaluation. Dietary supplements. 8. Fluids, electrolytes, and nutrition. Pured diet with nectar thick liquids. 9. DVT prophylaxis. Chemical DVT prophylaxis contraindicated. 10. Plan. Continue current management. No POA available. traffic worker following. May need a bioethics meeting. The patient was seen in collaboration with . Result Diagram: 11/01/18 0449 11/01/18 0445 Results 24hrs Laboratory Tests Test 11/01/18 04:45 11/01/18 04:49 Sodium Level 133 L Potassium Level 4.0 Chloride Level 103 Carbon Dioxide Level 24 Anion Gap 6 Blood Urea Nitrogen 7 Creatinine 0.67 Est Glomerular Filtrat Rate mL/min Glucose Level 142 Calcium Level 9.3 White Blood Count 13.0 #H Red Blood Count 2.76 #L Hemoglobin 8.6 #L Hematocrit 25.8 #L Mean Corpuscular Volume 93.5 Mean Corpuscular Hemoglobin 31.2 Mean Corpuscular Hemoglobin Concent 33.3 Red Cell Distribution Width 12.6 Platelet Count 217 Mean Platelet Volume 11.2 H Immature Granulocytes % 0.500 H Neutrophils % 75.5 Lymphocytes % 11.7 L Monocytes % 11.4 H Eosinophils % 0.7 Basophils % 0.2 Nucleated Red Blood Cells % 0.0 Immature Granulocytes # 0.060 H Neutrophils # 9.8 H Lymphocytes # 1.5 Monocytes # 1.5 H Eosinophils # 0.1 Basophils # 0.0 Nucleated Red Blood Cells # 0.0 Exam/Review of Systems Exam Vitals Vital Signs Date Temp Pulse Resp B/P (MAP) Pulse Ox O2 O2 Flow FiO2 Time Delivery Rate 11/01/18 73 18 106/62 98 13:34 (77) 11/01/18 98.4 07:32 11/01/18 Room Air 02:10 Intake and Output 10/31/18 10/31/18 11/01/18 1515:00 23:00 07:00 IntakeIntake Total 350 ml 597.5 ml OutputOutput Total 120 ml 1200 ml BalanceBalance 350 ml 477.5 ml -1200 ml Results Results 24hrs Laboratory Tests Test 11/01/18 04:45 11/01/18 04:49 Sodium Level 133 L Potassium Level 4.0 Chloride Level 103 Carbon Dioxide Level 24 Anion Gap 6 Blood Urea Nitrogen 7 Creatinine 0.67 Est Glomerular Filtrat Rate mL/min Glucose Level 142 Calcium Level 9.3 White Blood Count 13.0 #H Red Blood Count 2.76 #L Hemoglobin 8.6 #L Hematocrit 25.8 #L Mean Corpuscular Volume 93.5 Mean Corpuscular Hemoglobin 31.2 Mean Corpuscular Hemoglobin Concent 33.3 Red Cell Distribution Width 12.6 Platelet Count 217 Mean Platelet Volume 11.2 H Immature Granulocytes % 0.500 H Neutrophils % 75.5 Lymphocytes % 11.7 L Monocytes % 11.4 H Eosinophils % 0.7 Basophils % 0.2 Nucleated Red Blood Cells % 0.0 Immature Granulocytes # 0.060 H Neutrophils # 9.8 H Lymphocytes # 1.5 Monocytes # 1.5 H Eosinophils # 0.1 Basophils # 0.0 Nucleated Red Blood Cells # 0.0 Medications Medication Current Medications IV Flush (NS 3 ml) 3 ml PER PROTOCOL IV ; Start 10/25/18 at 23:00 Ondansetron HCl (Zofran Inj) 4 mg Q6H PRN IV NAUSEA/VOMITING; Start 10/25/18 at 23:00 Acetaminophen (Tylenol Supp) 650 mg Q6H PRN [place] .PAIN 1-3 OR TEMP; Start 10/25/18 at 23:00 Heparin Sodium (Porcine) (Heparin (5000 Units/1ml)) 5,000 unit Q12 SC Last administered on 10/27/18at 20:32; Admin Dose 5,000 UNIT; Start 10/26/18 at 09:00; Status Hold Albuterol/ Ipratropium (Duoneb) 3 ml Q2H RESP THERAPY PRN HHN SHORTNESS OF BREATH; Start 10/25/18 at 23:00 Ceftriaxone Sodium 50 ml @ 100 mls/hr Q12H IVPB Last administered on 11/01/18at 08:32; Admin Dose 100 MLS/HR; Start 10/26/18 at 08:00 Azithromycin 250 ml @ 250 mls/hr Q24H IVPB Last administered on 10/31/18at 22:10; Admin Dose 250 MLS/HR; Start 10/26/18 at 22:00 Lorazepam (Ativan) 1 mg Q6H PRN IV ANXIETY Last administered on 10/30/18at 15:49; Admin Dose 1 MG; Start 10/26/18 at 15:30 Thiamine HCl (Vitamin B1) 100 mg DAILY PO Last administered on 11/01/18at 08:31; Admin Dose 100 MG; Start 10/29/18 at 09:00 Skin Resp Fact/ Shark/Phenyl Mercur (Hemorrhoidal Supp) 1 ea BID PRN [place] FOR HEMORROID PAIN/ITCHING; Start 10/29/18 at 21:00 Lubiprostone (Amitiza) 24 mcg BID PO Last administered on 11/01/18 08:31; Admin Dose 24 MCG; Start 10/29/18 at 21:00 Potassium Chloride/Dextrose/ Sod Cl 1,000 ml @ 75 mls/hr [id number] IV Last administered on 10/31/18at 21:17; Admin Dose 75 MLS/HR; Start 10/31/18 at 21:00 NORBERT BUSBY NP Nov 01, 2018 15:41
[2018-11-01 19:33] VITALS: BP 104/68; PULSE 67; RESP 17
[2018-11-01] MEDS: AZITHROMYCIN 500MG/NS (PMX) 250 ML IVPB SCH (21:20)
[2018-11-02 01:54] VITALS: BP 110/72; PULSE 70; RESP 17
--- NOTE | 2018-11-02 06:04 | PN ---
Date/Time of Note Date/Time of Note DATE: 11/02/18 TIME: 06:04 Assessment/Plan VTE Prophylaxis Risk score (from Nsg)>0 risk: 4 SCD applied (from Ns): No SCD contraindicated: other Pharmacological prophylaxis: NA/contraindicated Pharm contraindication: bleeding Lines/Catheters IV Catheter Type (from [facility] [place]): Peripheral IV Urinary Cath still in place: Yes Reason Cath still needed: other (indicate) Assessment/Plan Hospital Course SUBJECTIVE: Denies any pain. OBJECTIVE: Physical Exam General: Thin, frail looking, 73 year-old female lying in bed in no apparent distress. HEENT: Normocephalic, atraumatic. Eyes: Anicteric sclerae, conjunctivae clear. ENT: Nasal septum midline, oral mucosa moist. Neck supple, no JVD noticed. Respiratory: Bilaterally diminished breath sounds. No use of accessory muscles of respiration. No adventitious breath sounds. Cardiovascular: S1, S2 heard. Regular rate and rhythm Abdomen: Soft, nontender, and nondistended. Bowel sounds positive in all 4 quadrants. Genitourinary: Deferred. Extremities: No cyanosis, no clubbing, no edema. Peripheral pulses palpable. Neurologic: The patient is awake and alert. Oriented to self. Skin: Normal skin turgor. No skin rashes. Labs & Vitals per chart ASSESSMENT & PLAN 73-year-old female who was brought in by paramedics because of altered level of consciousness, who was admitted to inpatient setting for further treatment and evaluation. 1. Acute encephalopathy. Unknown baseline mental status. Brain imaging negative for any acute infarcts. 2. Large right hilar lung mass, directly invading into the adjacent subcarinal mediastinum, compatible with primary lung malignancy. Being followed by pulmonology. Not an appropriate candidate for aggressive management since the patient remains confused and has no next of kin to make decisions on her behalf. 3. Hematochezia. Status post evaluation by gastroenterology. Monitor H&H closely. Transfuse as needed. 4. Vaginal bleeding. Patient refused transvaginal exam. Pelvic ultrasound showed mildly enlarged endometrium. 5. Normocytic anemia. Etiology could be multifactorial including underlying malignancy and acute blood loss. Monitor H&H closely. Transfuse blood products as indicated. 6. Failure to thrive. Social work following. 7. Moderate to severe protein-calorie malnutrition. S/P RD evaluation. Dietary supplements. 8. Fluids, electrolytes, and nutrition. Pured diet with nectar thick liquids. 9. DVT prophylaxis. Chemical DVT prophylaxis contraindicated. 10. Plan. Continue current management. No POA available. social worker masters following. Bioethics meeting scheduled. The patient was seen in collaboration with . Result Diagram: 11/02/189 11/01/185 Results 24hrs Laboratory Tests Test 11/02/18 04:49 White Blood Count 8.1 # Red Blood Count 2.48 L Hemoglobin 7.8 L Hematocrit 23.4 L Mean Corpuscular Volume 94.4 Mean Corpuscular Hemoglobin 31.5 Mean Corpuscular Hemoglobin Concent 33.3 Red Cell Distribution Width 12.8 Platelet Count 222 Mean Platelet Volume 10.8 H Immature Granulocytes % 0.500 H Neutrophils % 70.0 Lymphocytes % 15.9 Monocytes % 10.8 Eosinophils % 2.4 Basophils % 0.4 Nucleated Red Blood Cells % 0.0 Immature Granulocytes # 0.040 H Neutrophils # 5.7 Lymphocytes # 1.3 Monocytes # 0.9 Eosinophils # 0.2 Basophils # 0.0 Nucleated Red Blood Cells # 0.0 Exam/Review of Systems Exam Vitals Vital Signs Date Temp Pulse Resp B/P (MAP) Pulse Ox O2 O2 Flow FiO2 Time Delivery Rate 11/02/18 98.4 70 17 110/72 95 01:54 (85) 11/01/18 Room Air 02:10 Intake and Output 11/01/18 11/01/18 11/02/18 1515:00 23:00 07:00 IntakeIntake Total 50 ml 1960 ml 300 ml OutputOutput Total 1200 ml BalanceBalance 50 ml 1960 ml -900 ml Results Results 24hrs Laboratory Tests Test 11/02/18 04:49 White Blood Count 8.1 # Red Blood Count 2.48 L Hemoglobin 7.8 L Hematocrit 23.4 L Mean Corpuscular Volume 94.4 Mean Corpuscular Hemoglobin 31.5 Mean Corpuscular Hemoglobin Concent 33.3 Red Cell Distribution Width 12.8 Platelet Count 222 Mean Platelet Volume 10.8 H Immature Granulocytes % 0.500 H Neutrophils % 70.0 Lymphocytes % 15.9 Monocytes % 10.8 Eosinophils % 2.4 Basophils % 0.4 Nucleated Red Blood Cells % 0.0 Immature Granulocytes # 0.040 H Neutrophils # 5.7 Lymphocytes # 1.3 Monocytes # 0.9 Eosinophils # 0.2 Basophils # 0.0 Nucleated Red Blood Cells # 0.0 Medications Medication Current Medications IV Flush (NS 3 ml) 3 ml PER PROTOCOL IV ; Start 10/25/18 at 23:00 Ondansetron HCl (Zofran Inj) 4 mg Q6H PRN IV NAUSEA/VOMITING; Start 10/25/18 at 23:00 Acetaminophen (Tylenol Supp) 650 mg Q6H PRN [place] .PAIN 1-3 OR TEMP; Start 10/25/18 at 23:00 Heparin Sodium (Porcine) (Heparin (5000 Units/1ml)) 5,000 unit Q12 SC Last administered on 10/27/18 20:32; Admin Dose 5,000 UNIT; Start 10/26/18 at 09:00; Status Hold Albuterol/ Ipratropium (Duoneb) 3 ml Q2H RESP THERAPY PRN HHN SHORTNESS OF BREATH; Start 10/25/18 at 23:00 Ceftriaxone Sodium 50 ml @ 100 mls/hr Q12H IVPB Last administered on 11/01/18 20:41; Admin Dose 100 MLS/HR; Start 10/26/18 at 08:00 Azithromycin 250 ml @ 250 mls/hr Q24H IVPB Last administered on 11/01/18 21:20; Admin Dose 250 MLS/HR; Start 10/26/18 at 22:00 Lorazepam (Ativan) 1 mg Q6H PRN IV ANXIETY Last administered on 10/30/18 15:49; Admin Dose 1 MG; Start 10/26/18 at 15:30 Thiamine HCl (Vitamin B1) 100 mg DAILY PO Last administered on 11/01/18 08:31; Admin Dose 100 MG; Start 10/29/18 at 09:00 Skin Resp Fact/ Shark/Phenyl Mercur (Hemorrhoidal Supp) 1 ea BID PRN [place] FOR HEMORROID PAIN/ITCHING; Start 10/29/18 at 21:00 Lubiprostone (Amitiza) 24 mcg BID PO Last administered on 11/01/18 20:41; Admin Dose 24 MCG; Start 10/29/18 at 21:00 Potassium Chloride/Dextrose/ Sod Cl 1,000 ml @ 75 mls/hr [id number] IV Last administered on 11/01/18 17:20; Admin Dose 75 MLS/HR; Start 10/31/18 at 21:00 NORBERT BUSBY NP Nov 02, 2018 06:04
[2018-11-02 07:34] VITALS: BP 113/59; PULSE 72; RESP 15
[2018-11-02] MEDS: LUBIPROSTONE 24 MCG CAP PO SCH ×2 (09:19→21:03)
[2018-11-02] MEDS: CEFTRIAXONE 1 GM/50 ML (PMX) 50 ML IVPB SCH ×2 (09:20→19:42)
[2018-11-02] MEDS: THIAMINE 100 MG TAB PO SCH (09:20)
[2018-11-02] MEDS: D5W-0.45 NACL + KCL 20 MEQ 1,000 ML IV SCH (12:07)
[2018-11-02 14:00] VITALS: BP 107/62; PULSE 84; RESP 16
[2018-11-02 19:56] VITALS: BP 96/52; PULSE 78; RESP 17
[2018-11-02] MEDS: AZITHROMYCIN 500MG/NS (PMX) 250 ML IVPB SCH (21:03)
--- NOTE | 2018-11-02 22:22 | CONS ---
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 STAGING WITH CT CHEST WITH IV CONTRAST AND CT ABD/PELVIS WITH AND WITHOUT IV CONTRAST- REVIEWED BIOCHEM W-UP- UNREMARKABLE TUMOR MARKERS-NEG PER RN - NO FAMILY AVAILABLE PT HAS 2 FRIENDS, WHO ARE GOING TO MAKE A DECISION . SOCIAL SERVICE INVOLVED PALLIATIVE CARE EVAL DOESN'T LOOK LIKE PT A GOOD CANDIDATE FOR AGGRESSIVE TREATMENT POS REFERRAL TO BIOETHICS COMMITTEE TO REVIEW THE CASE PALLIATIVE CARE EVAL AND F-UP ANEMIA COMPLEX MONITOR CLOSELY OBSERVE FOR BLEEDING AND HEMOLYSIS TRANSFUSE NEEDED Altered mental status possibly due to hypernatremia. CT BRAIN - NEG COPD. Patient been a current smoker. Advanced dementia. Emaciated state. OLYA CALVIN DOS 11.01.18 Consultation Date/Type/Reason Admit Date/Time Oct 25, 2018 at 22:31 Initial Consult Date 10/28/18 Type of Consult hemeonc Requesting Provider: TEMO ELLISON NP Date/Time of Note DATE: 11/02/18 TIME: 22:20 24 HR Interval Summary Free Text/Dictation ALL NOTED H/H - MIN DROP NO ACTIVE BLEEDING Exam/Review of Systems Exam Vitals Vital Signs Date Temp Pulse Resp B/P (MAP) Pulse Ox O2 O2 Flow FiO2 Time Delivery Rate 11/02/18 98.1 78 17 96/52 (67) 97 19:56 11/02/18 Room Air 07:34 Intake and Output 11/01/18 11/01/18 11/02/18 1515:00 23:00 07:00 IntakeIntake Total 50 ml 1960 ml 1000 ml OutputOutput Total 1200 ml BalanceBalance 50 ml 1960 ml -200 ml Exam H EENT exam; supple neck, no JVD. No lymphadenopathy. Midline trachea. No thyromegaly. Patient has multiple carious teeth. No neck masses. Chest exam; diminished breath sounds bilaterally. S1-S2 audible, no murmurs. Regular rhythm. Abdomen exam; soft, nondistended. No organomegaly. Bowel sounds audible. Extremity exam; no peripheral edema clubbing. BEEF BREAKER exam; patient is awake alert able to talk. Appears confused. No focal motor deficit. Results Result Diagram: 11/02/18 0449 11/02/18 0449 Results 24hrs Laboratory Tests Test 11/02/18 04:49 White Blood Count 8.1 # Red Blood Count 2.48 L Hemoglobin 7.8 L Hematocrit 23.4 L Mean Corpuscular Volume 94.4 Mean Corpuscular Hemoglobin 31.5 Mean Corpuscular Hemoglobin Concent 33.3 Red Cell Distribution Width 12.8 Platelet Count 222 Mean Platelet Volume 10.8 H Immature Granulocytes % 0.500 H Neutrophils % 70.0 Lymphocytes % 15.9 Monocytes % 10.8 Eosinophils % 2.4 Basophils % 0.4 Nucleated Red Blood Cells % 0.0 Immature Granulocytes # 0.040 H Neutrophils # 5.7 Lymphocytes # 1.3 Monocytes # 0.9 Eosinophils # 0.2 Basophils # 0.0 Nucleated Red Blood Cells # 0.0 Sodium Level 137 Potassium Level 3.8 Chloride Level 106 Carbon Dioxide Level 26 Anion Gap 5 Blood Urea Nitrogen 4 L Creatinine 0.55 Est Glomerular Filtrat Rate mL/min Glucose Level 125 Calcium Level 9.6 Phosphorus Level 2.4 L Magnesium Level 1.8 Medications Medication Current Medications IV Flush (NS 3 ml) 3 ml PER PROTOCOL IV ; Start 10/25/18 at 23:00 Ondansetron HCl (Zofran Inj) 4 mg Q6H PRN IV NAUSEA/VOMITING; Start 10/25/18 at 23:00 Acetaminophen (Tylenol Supp) 650 mg Q6H PRN [place] .PAIN 1-3 OR TEMP; Start 10/25/18 at 23:00 Heparin Sodium (Porcine) (Heparin (5000 Units/1ml)) 5,000 unit Q12 SC Last administered on 10/27/18at 20:32; Admin Dose 5,000 UNIT; Start 10/26/18 at 09:00; Status Hold Albuterol/ Ipratropium (Duoneb) 3 ml Q2H RESP THERAPY PRN HHN SHORTNESS OF BREATH; Start 10/25/18 at 23:00 Ceftriaxone Sodium 50 ml @ 100 mls/hr Q12H IVPB Last administered on 11/02/18at 19:42; Admin Dose 100 MLS/HR; Start 10/26/18 at 08:00 Azithromycin 250 ml @ 250 mls/hr Q24H IVPB Last administered on 11/02/18at 21:03; Admin Dose 250 MLS/HR; Start 10/26/18 at 22:00 Lorazepam (Ativan) 1 mg Q6H PRN IV ANXIETY Last administered on 10/30/18at 15:49; Admin Dose 1 MG; Start 10/26/18 at 15:30 Thiamine HCl (Vitamin B1) 100 mg DAILY PO Last administered on 11/02/18at 09:20; Admin Dose 100 MG; Start 10/29/18 at 09:00 Skin Resp Fact/ Shark/Phenyl Mercur (Hemorrhoidal Supp) 1 ea BID PRN [place] FOR HEMORROID PAIN/ITCHING; Start 10/29/18 at 21:00 Lubiprostone (Amitiza) 24 mcg BID PO Last administered on 11/02/18at 21:03; Admin Dose 24 MCG; Start 10/29/18 at 21:00 Potassium Chloride/Dextrose/ Sod Cl 1,000 ml @ 75 mls/hr [id number] IV Last administered on 11/02/18at 12:07; Admin Dose 75 MLS/HR; Start 10/31/18 at 21:00 MARSHAL CHINO MD Nov 02, 2018 22:22
--- NOTE | 2018-11-02 22:24 | CONS ---
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 STAGING WITH CT CHEST WITH IV CONTRAST AND CT ABD/PELVIS WITH AND WITHOUT IV CONTRAST- REVIEWED BIOCHEM W-UP- UNREMARKABLE TUMOR MARKERS-NEG PER RN - NO FAMILY AVAILABLE PT HAS 2 FRIENDS, WHO ARE GOING ? TO MAKE A DECISION . SOCIAL SERVICE INVOLVED DOESN'T LOOK LIKE PT A GOOD CANDIDATE FOR AGGRESSIVE TREATMENT POS REFERRAL TO BIOETHICS COMMITTEE TO REVIEW THE CASE PALLIATIVE CARE EVAL AND F-UP ANEMIA COMPLEX MONITOR CLOSELY OBSERVE FOR BLEEDING AND HEMOLYSIS TRANSFUSE NEEDED Altered mental status possibly due to hypernatremia. CT BRAIN - NEG COPD. Patient been a current smoker. Advanced dementia. Emaciated state. VK NIKUNJ DOS 11.01.18 Consultation Date/Type/Reason Admit Date/Time Oct 25, 2018 at 22:31 Initial Consult Date 10/28/18 Type of Consult hemeon Requesting Provider: TEMO ELLISON NP Date/Time of Note DATE: 11/02/18 TIME: 22:23 24 HR Interval Summary Free Text/Dictation ALL NOTED NO NEW EVENTS NO BLEEDING H/H- DOWN Exam/Review of Systems Exam Vitals Vital Signs Date Temp Pulse Resp B/P (MAP) Pulse Ox O2 O2 Flow FiO2 Time Delivery Rate 11/02/18 98.1 78 17 96/52 (67) 97 19:56 11/02/18 Room Air 07:34 Intake and Output 11/01/18 11/01/18 11/02/18 1515:00 23:00 07:00 IntakeIntake Total 50 ml 1960 ml 1000 ml OutputOutput Total 1200 ml BalanceBalance 50 ml 1960 ml -200 ml Exam H EENT exam; supple neck, no JVD. No lymphadenopathy. Midline trachea. No thyromegaly. Patient has multiple carious teeth. No neck masses. Chest exam; diminished breath sounds bilaterally. S1-S2 audible, no murmurs. Regular rhythm. Abdomen exam; soft, nondistended. No organomegaly. Bowel sounds audible. Extremity exam; no peripheral edema clubbing. BOLOGNA LACER exam; patient is awake alert able to talk. Appears confused. No focal motor deficit. Results Result Diagram: 11/02/18 0449 11/02/189 Results 24hrs Laboratory Tests Test 11/02/18 04:49 White Blood Count 8.1 # Red Blood Count 2.48 L Hemoglobin 7.8 L Hematocrit 23.4 L Mean Corpuscular Volume 94.4 Mean Corpuscular Hemoglobin 31.5 Mean Corpuscular Hemoglobin Concent 33.3 Red Cell Distribution Width 12.8 Platelet Count 222 Mean Platelet Volume 10.8 H Immature Granulocytes % 0.500 H Neutrophils % 70.0 Lymphocytes % 15.9 Monocytes % 10.8 Eosinophils % 2.4 Basophils % 0.4 Nucleated Red Blood Cells % 0.0 Immature Granulocytes # 0.040 H Neutrophils # 5.7 Lymphocytes # 1.3 Monocytes # 0.9 Eosinophils # 0.2 Basophils # 0.0 Nucleated Red Blood Cells # 0.0 Sodium Level 137 Potassium Level 3.8 Chloride Level 106 Carbon Dioxide Level 26 Anion Gap 5 Blood Urea Nitrogen 4 L Creatinine 0.55 Est Glomerular Filtrat Rate mL/min Glucose Level 125 Calcium Level 9.6 Phosphorus Level 2.4 L Magnesium Level 1.8 Medications Medication Current Medications IV Flush (NS 3 ml) 3 ml PER PROTOCOL IV ; Start 10/25/18 at 23:00 Ondansetron HCl (Zofran Inj) 4 mg Q6H PRN IV NAUSEA/VOMITING; Start 10/25/18 at 23:00 Acetaminophen (Tylenol Supp) 650 mg Q6H PRN [place] .PAIN 1-3 OR TEMP; Start 10/25/18 at 23:00 Heparin Sodium (Porcine) (Heparin (5000 Units/1ml)) 5,000 unit Q12 SC Last administered on 10/27/18at 20:32; Admin Dose 5,000 UNIT; Start 10/26/18 at 09:00; Status Hold Albuterol/ Ipratropium (Duoneb) 3 ml Q2H RESP THERAPY PRN HHN SHORTNESS OF BREATH; Start 10/25/18 at 23:00 Ceftriaxone Sodium 50 ml @ 100 mls/hr Q12H IVPB Last administered on 11/02/18at 19:42; Admin Dose 100 MLS/HR; Start 10/26/18 at 08:00 Azithromycin 250 ml @ 250 mls/hr Q24H IVPB Last administered on 11/02/18at 21: 03; Admin Dose 250 MLS/HR; Start 10/26/18 at 22:00 Lorazepam (Ativan) 1 mg Q6H PRN IV ANXIETY Last administered on 10/30/18at 15:49; Admin Dose 1 MG; Start 10/26/18 at 15:30 Thiamine HCl (Vitamin B1) 100 mg DAILY PO Last administered on 11/02/18at 09:20; Admin Dose 100 MG; Start 10/29/18 at 09:00 Skin Resp Fact/ Shark/Phenyl Mercur (Hemorrhoidal Supp) 1 ea BID PRN [place] FOR HEMORROID PAIN/ITCHING; Start 10/29/18 at 21:00 Lubiprostone (Amitiza) 24 mcg BID PO Last administered on 11/02/18at 21:03; A dmin Dose 24 MCG; Start 10/29/18 at 21:00 Potassium Chloride/Dextrose/ Sod Cl 1,000 ml @ 75 mls/hr [id number] IV Last administered on 11/02/18at 12:07; Admin Dose 75 MLS/HR; Start 10/31/18 at 21:00 MARSHAL CHINO MD Nov 02, 2018 22:24
[2018-11-03 01:43] VITALS: BP 98/56; PULSE 84; RESP 18
[2018-11-03] MEDS: D5W-0.45 NACL + KCL 20 MEQ 1,000 ML IV SCH ×2 (02:20→15:49)
--- NOTE | 2018-11-03 05:49 | PN ---
Date/Time of Note Date/Time of Note DATE: 11/03/18 TIME: 05:49 Assessment/Plan VTE Prophylaxis Risk score (from Ns)>0 risk: 3 SCD applied (from Ns): No SCD contraindicated: other Pharmacological prophylaxis: NA/contraindicated Pharm contraindication: bleeding Lines/Catheters [facility] ([facility]): Peripheral IV Urinary Cath still in place: Yes Reason Cath still needed: other (indicate) Assessment/Plan Hospital Course SUBJECTIVE: Denies any pain. OBJECTIVE: Physical Exam General: Thin, frail looking, 73 year-old female lying in bed in no apparent distress. HEENT: Normocephalic, atraumatic. Eyes: Anicteric sclerae, conjunctivae clear. ENT: Nasal septum midline, oral mucosa moist. Neck supple, no JVD noticed. Respiratory: Bilaterally diminished breath sounds. No use of accessory muscles of respiration. No adventitious breath sounds. Cardiovascular: S1, S2 heard. Regular rate and rhythm Abdomen: Soft, nontender, and nondistended. Bowel sounds positive in all 4 quadrants. Genitourinary: Deferred. Extremities: No cyanosis, no clubbing, no edema. Peripheral pulses palpable. Neurologic: The patient is awake and alert. Oriented to self. Skin: Normal skin turgor. No skin rashes. Labs & Vitals per chart ASSESSMENT & PLAN 73-year-old female who was brought in by paramedics because of altered level of consciousness, who was admitted to inpatient setting for further treatment and evaluation. 1. Acute encephalopathy. Unknown baseline mental status. Brain imaging negative for any acute infarcts. 2. Large right hilar lung mass, directly invading into the adjacent subcarinal mediastinum, compatible with primary lung malignancy. Being followed by pulmonology. Not an appropriate candidate for aggressive management since the patient remains confused and has no next of kin to make decisions on her behalf. 3. Hematochezia. Status post evaluation by gastroenterology. Monitor H&H closely. Transfuse as needed. 4. Vaginal bleeding. Patient refused transvaginal exam. Pelvic ultrasound showed mildly enlarged endometrium. 5. Normocytic anemia. Etiology could be multifactorial including underlying malignancy and acute blood loss. Monitor H&H closely. Transfuse blood products as indicated. 6. Failure to thrive. Social work following. 7. Moderate to severe protein-calorie malnutrition. S/P RD evaluation. Dietary supplements. 8. Fluids, electrolytes, and nutrition. Pured diet with nectar thick liquids. 9. DVT prophylaxis. Chemical DVT prophylaxis contraindicated. 10. Plan. Continue current management. No POA available. storage brine worker following. Bioethics meeting scheduled. The patient was seen in collaboration with . Result Diagram: 11/02/1844811/02/18448 Exam/Review of Systems Exam Vitals Vital Signs Date Temp Pulse Resp B/P (MAP) Pulse Ox O2 O2 Flow FiO2 Time Delivery Rate 11/03/18 97.9 84 18 98/56 (70) 97 01:43 11/02/18 Room Air 07:34 Intake and Output 11/02/18 11/02/18 11/03/18 1515:00 23:00 07:00 IntakeIntake Total 470 ml 875 ml 700 ml OutputOutput Total 1001 ml 600 ml BalanceBalance 470 ml -126 ml 100 ml Medications Medication Current Medications IV Flush (NS 3 ml) 3 ml PER PROTOCOL IV ; Start 10/25/18 at 23:00 Ondansetron HCl (Zofran Inj) 4 mg Q6H PRN IV NAUSEA/VOMITING; Start 10/25/18 at 23:00 Acetaminophen (Tylenol Supp) 650 mg Q6H PRN [place] .PAIN 1-3 OR TEMP; Start 10/25/18 at 23:00 Heparin Sodium (Porcine) (Heparin (5000 Units/1ml)) 5,000 unit Q12 SC Last administered on 10/27/18at 20:32; Admin Dose 5,000 UNIT; Start 10/26/18 at 09:00; Status Hold Albuterol/ Ipratropium (Duoneb) 3 ml Q2H RESP THERAPY PRN HHN SHORTNESS OF BREATH; Start 10/25/18 at 23:00 Ceftriaxone Sodium 50 ml @ 100 mls/hr Q12H IVPB Last administered on 11/02/18at 19:42; Admin Dose 100 MLS/HR; Start 10/26/18 at 08:00 Azithromycin 250 ml @ 250 mls/hr Q24H IVPB Last administered on 11/02/18at 21:03; Admin Dose 250 MLS/HR; Start 10/26/18 at 22:00 Lorazepam (Ativan) 1 mg Q6H PRN IV ANXIETY Last administered on 10/30/18at 15:49; Admin Dose 1 MG; Start 10/26/18 at 15:30 Thiamine HCl (Vitamin B1) 100 mg DAILY PO Last administered on 11/02/18 09:20; Admin Dose 100 MG; Start 10/29/18 at 09:00 Skin Resp Fact/ Shark/Phenyl Mercur (Hemorrhoidal Supp) 1 ea BID PRN [place] FOR HEMORROID PAIN/ITCHING; Start 10/29/18 at 21:00 Lubiprostone (Amitiza) 24 mcg BID PO Last administered on 11/02/18 21:03; Admin Dose 24 MCG; Start 10/29/18 at 21:00 Potassium Chloride/Dextrose/ Sod Cl 1,000 ml @ 75 mls/hr [id number] IV Last administered on 11/02/18 12:07; Admin Dose 75 MLS/HR; Start 10/31/18 at 21:00 NORBERT BUSBY NP Nov 03, 2018 05:49
[2018-11-03 07:55] VITALS: BP 119/73; PULSE 72; RESP 18
[2018-11-03] MEDS: THIAMINE 100 MG TAB PO SCH (08:28)
[2018-11-03] MEDS: LUBIPROSTONE 24 MCG CAP PO SCH ×2 (08:28→20:24)
[2018-11-03] MEDS: CEFTRIAXONE 1 GM/50 ML (PMX) 50 ML IVPB SCH (08:28)
--- NOTE | 2018-11-03 13:49 | QN ---
Documentation Comment Biomedical ethics committee meeting The biomedical ethics committee met today to discuss the case of Ms. Norwood at the request of the primary care team. She is a 73-year-old woman who is without offspring and is single. She has lived with her roommates for over 45 years. At this time she is coming extremely ill and has waxing and waning capacity for decision-making. Medical work-up has corrected her underlying fluid and electrolyte abnormalities without significant improvement. In addition she is suffering from significant protein calorie malnutrition. Work-up is also iden tified what appears to be a primary pulmonary malignancy with mets metastatic and significant local disease that is extremely serious. Is a position as reported by the primary care team that the consultants do not feel that aggressive attempts at intervention with this tumor given the patient's underlying functional status and the extent of the tumor are likely to have any significant benefit. In other words that the risks outweigh the benefits and are unlikely to lead to any type of meaningful medical improvement or benefit. This is been discussed by the medical team and the biomedical ethics committee. We met with the patient's roommates to verify their status. We are of the opinion that this is 1 of the rare cases where these non-blood relative indiv iduals are appropriately and adequately connected to the patient that they can speak for the patient. As such we discussed the full work-up with the patient. They inform us that this young lady had never wanted to go to a fpc and had not wanted to be maintained on life support machinery. They are now aware of the circumstances and situation for this young lady. The Primary care team's opinion is that the patient would be best served by being changed to DNR status, and evaluation for hospice services. It is a consideration of the biomedical ethics committee that the primary care team's assessment and direction of care i s appropriate under the circumstances and we are in full agreement. Respectfully ERICKA Macario MD, MD Nov 03, 2018 13:49
[2018-11-03 20:00] VITALS: BP 103/56; PULSE 73; RESP 18
--- NOTE | 2018-11-03 22:20 | CONS ---
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 STAGING WITH CT CHEST WITH IV CONTRAST AND CT ABD/PELVIS WITH AND WITHOUT IV CONTRAST- REVIEWED BIOCHEM W-UP- UNREMARKABLE TUMOR MARKERS-NEG PER RN - NO FAMILY AVAILABLE PT HAS 2 FRIENDS, WHO ARE GOING ? TO MAKE A DECISION . SOCIAL SERVICE INVOLVED DOESN'T LOOK LIKE PT A GOOD CANDIDATE FOR AGGRESSIVE TREATMENT REFERRAL TO BIOETHICS COMMITTEE TO REVIEW THE CASE PALLIATIVE CARE EVAL AND F-UP ANEMIA COMPLEX MONITOR CLOSELY OBSERVE FOR BLEEDING AND HEMOLYSIS TRANSFUSE NEEDED Altered mental status possibly due to hypernatremia. CT BRAIN - NEG COPD. Patient been a current smoker. Advanced dementia. Emaciated state. Consultation Date/Type/Reason Admit Date/Time Oct 25, 2018 at 22:31 Initial Consult Date 10/28/18 Type of Consult hemeon Requesting Provider: TEMO ELLISON NP Date/Time of Note DATE: 11/03/18 TIME: 22:18 24 HR Interval Summary Free Text/Dictation ALL NOTED SEEN BY DR WOODRUFF Exam/Review of Systems Exam Vitals Vital Signs Date Temp Pulse Resp B/P (MAP) Pulse Ox O2 O2 Flow FiO2 Time Delivery Rate 11/03/18 97.2 73 18 103/56 96 20:00 (72) 11/03/18 Room Air 07:55 Intake and Output 11/02/18 11/02/18 11/03/18 1515:00 23:00 07:00 IntakeIntake Total 470 ml 875 ml 700 ml OutputOutput Total 1001 ml 600 ml BalanceBalance 470 ml -126 ml 100 ml Exam H EENT exam; supple neck, no JVD. No lymphadenopathy. Midline trachea. No thyromegaly. Patient has multiple carious teeth. No neck masses. Chest exam; diminished breath sounds bilaterally. S1-S2 audible, no murmurs. Regular rhythm. Abdomen exam; soft, nondistended. No organomegaly. Bowel sounds audible. Extremity exam; no peripheral edema clubbing. MANAGER INTEL exam; patient is awake alert able to talk. Appears confused. No focal m otor deficit. Results Result Diagram: 11/02/1844811/02/18448 Imaging Imaging PROCEDURE: US Pelvis. CLINICAL INDICATION: Pelvic pain. TECHNIQUE: The pelvis was evaluated with transabdominal and transvaginal sonography in the axial and sagittal planes. COMPARISON: No prior study is available for comparison. FINDINGS: Uterus: 9.4 x 4 cm. Retroverted. Endometrium: 6 mm. The bilateral ovaries are not visualized secondary to uncooperative patient. Uterine masses: None. Other pelvic masses: None. Free fluid: None. IMPRESSION: The bilateral ovaries are not visualized secondary to uncooperative patient. F ollow-up pelvic ultrasound recommended to exclude ovarian disease. Mildly enlarged endometrium. Follow-up to exclude endometrial hyperplasia, polyp, or carcinoma. The uterus is poorly visualized secondary to overlying bowel. The patient refused transvaginal exam. Incomplete study. Medications Medication Current Medications IV Flush (NS 3 ml) 3 ml PER PROTOCOL IV ; Start 10/25/18 at 23:00 Ondansetron HCl (Zofran Inj) 4 mg Q6H PRN IV NAUSEA/VOMITING; Start 10/25/18 at 23:00 Acetaminophen (Tylenol Supp) 650 mg Q6H PRN [place] .PAIN 1-3 OR TEMP; Start 10/25/18 at 23:00 Heparin Sodium (Porcine) (Heparin (5000 Units/1ml)) 5,000 unit Q12 SC Last administered on 10/27/18at 20:32; Admin Dose 5,000 UNIT; Start 10/26/18 at 09:00; Status Hold Albuterol/ Ipratropium (Duoneb) 3 ml Q2H RESP THERAPY PRN HHN SHORTNESS OF BREATH; Start 10/25/18 at 23:00 Lorazepam (Ativan) 1 mg Q6H PRN IV ANXIETY Last administered on 10/30/18at 15:49; Admin Dose 1 MG; Start 10/26/18 at 15:30 Thiamine HCl (Vitamin B1) 100 mg DAILY PO Last administered on 11/03/18 08:28; Admin Dose 100 MG; Start 10/29/18 at 09:00 Skin Resp Fact/ Shark/Phenyl Mercur (Hemorrhoidal Supp) 1 ea BID PRN [place] FOR HEMORROID PAIN/ITCHING; Start 10/29/18 at 21:00 Lubiprostone (Amitiza) 24 mcg BID PO Last administered on 11/03/18 20:24; Admin Dose 24 MCG; Start 10/29/18 at 21:00 MARSHAL CHINO MD Nov 03, 2018 22:20
[2018-11-04 02:00] VITALS: BP 128/58; PULSE 63; RESP 19
[2018-11-04 07:35] VITALS: BP 137/66; PULSE 66; RESP 18
[2018-11-04] MEDS: LUBIPROSTONE 24 MCG CAP PO SCH ×2 (08:09→20:29)
[2018-11-04] MEDS: THIAMINE 100 MG TAB PO SCH (08:09)
[2018-11-04 14:00] VITALS: BP 123/74; PULSE 65; RESP 18
--- NOTE | 2018-11-04 15:28 | PN ---
Date/Time of Note Date/Time of Note DATE: 11/04/18 TIME: 15:26 Assessment/Plan VTE Prophylaxis Risk score (from Nsg)>0 risk: 4 SCD applied (from Ns): No SCD contraindicated: other Pharmacological prophylaxis: NA/contraindicated Pharm contraindication: bleeding Lines/Catheters IV C[facility]ter Type (from [facility]): Peripheral IV Urinary Cath still in place: Yes Reason Cath still needed: other (indicate) Assessment/Plan Hospital Course SUBJECTIVE: Denies any pain. OBJECTIVE: Physical Exam General: Thin, frail looking, 73 year-old female lying in bed in no apparent distress. HEENT: Normocephalic, atraumatic. Eyes: Anicteric sclerae, conjunctivae clear. ENT: Nasal septum midline, oral mucosa moist. Neck supple, no JVD noticed. Respiratory: Bilaterally diminished breath sounds. No use of accessory muscles of respiration. No adventitious breath sounds. Cardiovascular: S1, S2 heard. Regular rate and rhythm Abdomen: Soft, nontender, and nondistended. Bowel sounds positive in all 4 quadrants. Genitourinary: Deferred. Extremities: No cyanosis, no clubbing, no edema. Peripheral pulses palpable. Neurologic: The patient is awake and alert. Oriented to self. Skin: Normal skin turgor. No skin rashes. Labs & Vitals per chart ASSESSMENT & PLAN 73-year-old female who was brought in by paramedics because of altered level of consciousness, who was admitted to inpatient setting for further treatment and evaluation. 1. Acute encephalopathy. Unknown baseline mental status. Brain imaging negative for any acute infarcts. Continue frequent reorientation. 2. Large right hilar lung mass, directly invading into the adjacent subcarinal mediastinum, compatible with primary lung malignancy. Being followed by pulmonology. Not an appropriate candidate for aggressive management as per oncology. 3. Hematochezia. Status post evaluation by gastroenterology. Monitor H&H closely. Transfuse as needed. 4. Vaginal bleeding. Patient refused transvaginal exam. Pelvic ultrasound showed mildly enlarged endometrium. 5. Normocytic anemia. Etiology could be multifactorial including underlying malignancy and acute blood loss. Monitor H&H closely. Transfuse blood products as indicated. 6. Failure to thrive. Social work following. 7. Moderate to severe protein-calorie malnutrition. S/P RD evaluation. Dietary supplements. 8. Fluids, electrolytes, and nutrition. Pured diet with nectar thick liquids. 9. DVT prophylaxis. Chemical DVT prophylaxis contraindicated. 10. Plan. Status post bioethics meeting on 11/03/2018. The bioethics committee met with the patient is a long-term roommates. Bioethics committee decided to make the patient a DNR. Bioethics committee decided to do hospice evaluation on this patient said this is in the best interest of this patient, provided the patient's extensive metastatic malignancy and poor prognosis. The patient was seen in collaboration with . Result Diagram: 11/04/18 0456 11/04/18 0456 Results 24hrs Laboratory Tests Test 11/04/18 04:56 White Blood Count 8.7 Red Blood Count 2.52 L Hemoglobin 7.9 L Hematocrit 23.8 L Mean Corpuscular Volume 94.4 Mean Corpuscular Hemoglobin 31.3 Mean Corpuscular Hemoglobin Concent 33.2 Red Cell Distribution Width 13.3 Platelet Count 277 # Mean Platelet Volume 10.9 H Immature Granulocytes % 0.500 H Neutrophils % 76.3 Lymphocytes % 11.6 L Monocytes % 9.3 Eosinophils % 1.8 Basophils % 0.5 Nucleated Red Blood Cells % 0.0 Immature Granulocytes # 0.040 H Neutrophils # 6.6 Lymphocytes # 1.0 Monocytes # 0.8 Eosinophils # 0.2 Basophils # 0.0 Nucleated Red Blood Cells # 0.0 Erythrocyte Sedimentation Rate 120.0 H Sodium Level 137 Potassium Level 4.1 Chloride Level 106 Carbon Dioxide Level 27 Anion Gap 4 L Blood Urea Nitrogen 4 L Creatinine 0.61 Est Glomerular Filtrat Rate mL/min Glucose Level 97 Calcium Level 10.4 H Phosphorus Level 3.2 Magnesium Level 1.9 Exam/Review of Systems Exam Vitals Vital Signs Date Temp Pulse Resp B/P (MAP) Pulse Ox O2 O2 Flow FiO2 Time Delivery Rate 11/04/18 97.7 66 18 137/66 96 Room Air 07:35 (89) Intake and Output 11/03/18 11/03/18 11/04/18 1515:00 23:00 07:00 IntakeIntake Total 75 ml 75 ml OutputOutput Total 300 ml BalanceBalance 75 ml -225 ml Results Results 24hrs Laboratory Tests Test 11/04/18 04:56 White Blood Count 8.7 Red Blood Count 2.52 L Hemoglobin 7.9 L Hematocrit 23.8 L Mean Corpuscular Volume 94.4 Mean Corpuscular Hemoglobin 31.3 Mean Corpuscular Hemoglobin Concent 33.2 Red Cell Distribution Width 13.3 Platelet Count 277 # Mean Platelet Volume 10.9 H Immature Granulocytes % 0.500 H Neutrophils % 76.3 Lymphocytes % 11.6 L Monocytes % 9.3 Eosinophils % 1.8 Basophils % 0.5 Nucleated Red Blood Cells % 0.0 Immature Granulocytes # 0.040 H Neutrophils # 6.6 Lymphocytes # 1.0 Monocytes # 0.8 Eosinophils # 0.2 Basophils # 0.0 Nucleated Red Blood Cells # 0.0 Erythrocyte Sedimentation Rate 120.0 H Sodium Level 137 Potassium Level 4.1 Chloride Level 106 Carbon Dioxide Level 27 Anion Gap 4 L Blood Urea Nitrogen 4 L Creatinine 0.61 Est Glomerular Filtrat Rate mL/min Glucose Level 97 Calcium Level 10.4 H Phosphorus Level 3.2 Magnesium Level 1.9 Medications Medication Current Medications IV Flush (NS 3 ml) 3 ml PER PROTOCOL IV ; Start 10/25/18 at 23:00 Ondansetron HCl (Zofran Inj) 4 mg Q6H PRN IV NAUSEA/VOMITING; Start 10/25/18 at 23:00 Acetaminophen (Tylenol Supp) 650 mg Q6H PRN [place] .PAIN 1-3 OR TEMP; Start 10/25/18 at 23:00 Heparin Sodium (Porcine) (Heparin (5000 Units/1ml)) 5,000 unit Q12 SC Last administered on 10/27/18at 20:32; Admin Dose 5,000 UNIT; Start 10/26/18 at 09:00; Status Hold Albuterol/ Ipratropium (Duoneb) 3 ml Q2H RESP THERAPY PRN HHN SHORTNESS OF BREATH; Start 10/25/18 at 23:00 Lorazepam (Ativan) 1 mg Q6H PRN IV ANXIETY Last administered on 10/30/18at 15:49 ; Admin Dose 1 MG; Start 10/26/18 at 15:30 Thiamine HCl (Vitamin B1) 100 mg DAILY PO Last administered on 11/04/18at 08:09; Admin Dose 100 MG; Start 10/29/18 at 09:00 Skin Resp Fact/ Shark/Phenyl Mercur (Hemorrhoidal Supp) 1 ea BID PRN [place] FOR HEMORROID PAIN/ITCHING; Start 10/29/18 at 21:00 Lubiprostone (Amitiza) 24 mcg BID PO Last administered on 11/04/18at 08:09; Admin Dose 24 MCG; Start 10/29/18 at 21:00 NORBERT BUSBY NP Nov 04, 2018 15:28
--- NOTE | 2018-11-04 20:00 | CONS ---
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 STAGING WITH CT CHEST WITH IV CONTRAST AND CT ABD/PELVIS WITH AND WITHOUT IV CONTRAST- REVIEWED BIOCHEM W-UP- UNREMARKABLE TUMOR MARKERS-NEG DOESN'T LOOK LIKE PT A GOOD CANDIDATE FOR AGGRESSIVE TREATMENT POST BIOETHICS COMMITTEE EVAL- AGREE WITH DNR, HOSPICE PALLIATIVE CARE EVAL AND F-UP ANEMIA COMPLEX MONITOR CLOSELY OBSERVE FOR BLEEDING AND HEMOLYSIS TRANSFUSE NEEDED Altered mental status possibly due to hypernatremia. CT BRAIN - NEG COPD. Patient been a current smoker. Advanced dementia. Emaciated state. Consultation Date/Type/Reason Admit Date/Time Oct 25, 2018 at 22:31 Initial Consult Date 10/28/18 Type of Consult hemeonc Requesting Provider: TEMO ELLISON NP Date/Time of Note DATE: 11/04/18 TIME: 19:58 24 HR Interval Summary Free Text/Dictation ALL NOTED Exam/Review of Systems Exam Vitals Vital Signs Date Temp Pulse Resp B/P (MAP) Pulse Ox O2 O2 Flow FiO2 Time Delivery Rate 11/04/18 97.5 65 18 123/74 95 Room Air 14:00 (90) Intake and Output 11/03/18 11/03/18 11/04/18 1515:00 23:00 07:00 IntakeIntake Total 75 ml 75 ml OutputOutput Total 300 ml BalanceBalance 75 ml -225 ml Exam H EENT exam; supple neck, no JVD. No lymphadenopathy. Midline trachea. No thyromegaly. Patient has multiple carious teeth. No neck masses. Chest exam; diminished breath sounds bilaterally. S1-S2 audible, no murmurs. Regular rhythm. Abdomen exam; soft, nondistended. No organomegaly. Bowel sounds audible. Extremity exam; no peripheral edema clubbing. COMMERCIAL CRABBER exam; patient is awake alert able to talk. Appears confused. No focal motor deficit. Results Result Diagram: 11/04/18 0456 11/04/18 0456 Results 24hrs Laboratory Tests Test 11/04/18 04:56 White Blood Count 8.7 Red Blood Count 2.52 L Hemoglobin 7.9 L Hematocrit 23.8 L Mean Corpuscular Volume 94.4 Mean Corpuscular Hemoglobin 31.3 Mean Corpuscular Hemoglobin Concent 33.2 Red Cell Distribution Width 13.3 Platelet Count 277 # Mean Platelet Volume 10.9 H Immature Granulocytes % 0.500 H Neutrophils % 76.3 Lymphocytes % 11.6 L Monocytes % 9.3 Eosinophils % 1.8 Basophils % 0.5 Nucleated Red Blood Cells % 0.0 Immature Granulocytes # 0.040 H Neutrophils # 6.6 Lymphocytes # 1.0 Monocytes # 0.8 Eosinophils # 0.2 Basophils # 0.0 Nucleated Red Blood Cells # 0.0 Erythrocyte Sedimentation Rate 120.0 H Sodium Level 137 Potassium Level 4.1 Chloride Level 106 Carbon Dioxide Level 27 Anion Gap 4 L Blood Urea Nitrogen 4 L Creatinine 0.61 Est Glomerular Filtrat Rate mL/min Glucose Level 97 Calcium Level 10.4 H Phosphorus Level 3.2 Magnesium Level 1.9 Medications Medication Current Medications IV Flush (NS 3 ml) 3 ml PER PROTOCOL IV ; Start 10/25/18 at 23:00 Ondansetron HCl (Zofran Inj) 4 mg Q6H PRN IV NAUSEA/VOMITING; Start 10/25/18 at 23:00 Acetaminophen (Tylenol Supp) 650 mg Q6H PRN [place] .PAIN 1-3 OR TEMP; Start at 23:00 Heparin Sodium (Porcine) (Heparin (5000 Units/1ml)) 5,000 unit Q12 SC Last administered on 10/27/18at 20:32; Admin Dose 5,000 UNIT; Start 10/26/18 at 09:00; Status Hold Albuterol/ Ipratropium (Duoneb) 3 ml Q2H RESP THERAPY PRN HHN SHORTNESS OF BREATH; Start 10/25/18 at 23:00 Lorazepam (Ativan) 1 mg Q6H PRN IV ANXIETY Last administered on 10/30/18at 15:49; Admin Dose 1 MG; Start 10/26/18 at 15:30 Thiamine HCl (Vitamin B1) 100 mg DAILY PO Last administered on 11/04/18at 08:09; Admin Dose 100 MG; Start 10/29/18 at 09:00 Skin Resp Fact/ Shark/Phenyl Mercur (Hemorrhoidal Supp) 1 ea BID PRN [place] FOR HEMORROID PAIN/ITCHING; Start 10/29/18 at 21:00 Lubiprostone (Amitiza) 24 mcg BID PO Last administered on 11/04/18at 08:09; Admin Dose 24 MCG; Start 10/29/18 at 21:00 MARSHAL CHINO MD Nov 04, 2018 20:00
[2018-11-04 20:28] VITALS: BP 107/62; PULSE 79; RESP 18
[2018-11-04] MEDS: ACETAMINOPHEN 650MG/20.3ML CUP PO PRN (20:29)
[2018-11-05 02:53] VITALS: BP 98/54; PULSE 70; RESP 18
[2018-11-05 07:48] VITALS: BP 125/69; PULSE 69; RESP 18
[2018-11-05] MEDS: LUBIPROSTONE 24 MCG CAP PO SCH ×2 (08:34→22:18)
[2018-11-05] MEDS: THIAMINE 100 MG TAB PO SCH (08:34)
--- NOTE | 2018-11-05 13:51 | PN ---
Date/Time of Note Date/Time of Note DATE: 11/05/18 TIME: 13:50 Assessment/Plan VTE Prophylaxis Risk score (from Nsg)>0 risk: 4 SCD applied (from Ns): No SCD contraindicated: other Pharmacological prophylaxis: NA/contraindicated Pharm contraindication: bleeding Lines/Catheters [facility] ([facility]): Peripheral IV Urinary Cath still in place: Yes Reason Cath still needed: terminal illness/intractable pain, other (indicate) Assessment/Plan Hospital Course SUBJECTIVE: Denies any pain. OBJECTIVE: Physical Exam General: Thin, frail looking, 73 year-old female lying in bed in no apparent di stress. HEENT: Normocephalic, atraumatic. Eyes: Anicteric sclerae, conjunctivae clear. ENT: Nasal septum midline, oral mucosa moist. Neck supple, no JVD noticed. Respiratory: Bilaterally diminished breath sounds. No use of accessory muscles of respiration. No adventitious breath sounds. Cardiovascular: S1, S2 heard. Regular rate and rhythm Abdomen: Soft, nontender, and nondistended. Bowel sounds positive in all 4 quadrants. Genitourinary: Deferred. Extremities: No cyanosis, no clubbing, no edema. Peripheral pulses palpable. Neurologic: The patient is awake and alert. Oriented to self. Skin: Normal skin turgor. No skin rashes. Labs & Vitals per chart ASSESSMENT & PLAN 73-year-old female who was brought in by paramedics because of altered level of consciousness, who was admitted to inpatient setting for further treatment and evaluation. 1. Acute encephalopathy. Unknown baseline mental status. Brain imaging negative for any acute infarcts. Continue frequent reorientation. 2. Large right hilar lung mass, directly invading into the adjacent subcarinal mediastinum, compatible with primary lung malignancy. Being followed by pulmonology. Not an appropriate candidate for aggressive management as per oncology. 3. Hematochezia. Status post evaluation by gastroenterology. Monitor H&H closely. Transfuse as needed. 4. Vaginal bleeding. Resolved. Patient refused transvaginal exam. Pelvic ultrasound showed mildly enlarged endometrium. 5. Normocytic anemia. Etiology could be multifactorial including underlying malignancy and acute blood loss. Monitor H&H closely. Transfuse blood products as indicated. 6. Failure to thrive. Social work following. 7. Moderate to severe protein-calorie malnutrition. S/P RD evaluation. Dietary supplements. 8. Fluids, electrolytes, and nutrition. Pured diet with nectar thick liquids. 9. DVT prophylaxis. Chemical DVT prophylaxis contraindicated. 10. Plan. Status post bioethics meeting on 11/03/2018. The bioethics committee met with the patient is a long-term roommates. Bioethics committee decided to make the patient a DNR. Bioethics committee decided to do hospice evaluation on this patient said this is in the best interest of this patient, provided the patient's extensive metastatic malignancy and poor prognosis. The patient was seen in collaboration with . Result Diagram: 11/04/18 0456 11/04/18 0456 Exam/Review of Systems Exam Vitals Vital Signs Date Temp Pulse Resp B/P (MAP) Pulse Ox O2 O2 Flow FiO2 Time Delivery Rate 11/05/18 97.4 69 18 125/69 94 Room Air 07:48 (87) Intake and Output 11/04/18 11/04/18 11/05/18 1515:00 23:00 07:00 OutputOutput Total 400 ml BalanceBalance -400 ml Medications Medication Current Medications IV Flush (NS 3 ml) 3 ml PER PROTOCOL IV ; Start 10/25/18 at 23:00 Ondansetron HCl (Zofran Inj) 4 mg Q6H PRN IV NAUSEA/VOMITING; Start 10/25/18 at 23:00 Heparin Sodium (Porcine) (Heparin (5000 Units/1ml)) 5,000 unit Q12 SC Last administered on 10/27/18at 20:32; Admin Dose 5,000 UNIT; Start 10/26/18 at 09:00; Status Hold Albuterol/ Ipratropium (Duoneb) 3 ml Q2H RESP THERAPY PRN HHN SHORTNESS OF BREATH; Start 10/25/18 at 23:00 Lorazepam (Ativan) 1 mg Q6H PRN IV ANXIETY Last administered on 10/30/18at 15:49; Admin Dose 1 MG; Start 10/26/18 at 15:30 Thiamine HCl (Vitamin B1) 100 mg DAILY PO Last administered on 11/05/18at 08:34; Admin Dose 100 MG; Start 10/29/18 at 09:00 Skin Resp Fact/ Shark/Phenyl Mercur (Hemorrhoidal Supp) 1 ea BID PRN [place] FOR HEMORROID PAIN/ITCHING; Start 7/19/19 at 21:00 Lubiprostone (Amitiza) 24 mcg BID PO Last administered on 11/05/18at 08:34; Admin Dose 24 MCG; Start 10/29/18 at 21:00 Acetaminophen (Tylenol Liquid) 650 mg Q6 PRN PO MILD PAIN(1-3)OR ELEVATED TEMP Last administered on 11/04/18at 20:29; Admin Dose 650 MG; Start 11/04/18 at 20:30 Megestrol Acetate (Megace Susp) 400 mg BID PO ; Start 11/05/18 at 21:00; Status UNV NORBERT BUSBY NP Nov 05, 2018 13:51
[2018-11-05 14:06] VITALS: BP 133/62; PULSE 82; RESP 18
[2018-11-05] MEDS: MEGESTROL (40 MG/ML) 10ML CUP PO SCH ×2 (15:12→22:18)
[2018-11-05 20:27] VITALS: BP 100/56; PULSE 75; RESP 18
--- NOTE | 2018-11-05 22:40 | CONS ---
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 STAGING WITH CT CHEST WITH IV CONTRAST AND CT ABD/PELVIS WITH AND WITHOUT IV CONTRAST- REVIEWED BIOCHEM W-UP- UNREMARKABLE TUMOR MARKERS-NEG DOESN'T LOOK LIKE PT A GOOD CANDIDATE FOR AGGRESSIVE TREATMENT POST BIOETHICS COMMITTEE EVAL- AGREE WITH DNR, HOSPICE PALLIATIVE CARE EVAL AND F-UP ANEMIA COMPLEX MONITOR CLOSELY OBSERVE FOR BLEEDING AND HEMOLYSIS TRANSFUSE NEEDED Altered mental status possibly due to hypernatremia. CT BRAIN - NEG COPD. Patient been a current smoker. Advanced dementia. Emaciated state. Consultation Date/Type/Reason Admit Date/Time Oct 25, 2018 at 22:31 Initial Consult Date 10/28/18 Type of Consult hemeon Requesting Provider: TEMO ELLISON NP Date/Time of Note DATE: 11/05/18 TIME: 22:39 24 HR Interval Summary Free Text/Dictation NAD Exam/Review of Systems Exam Vitals Vital Signs Date Temp Pulse Resp B/P (MAP) Pulse Ox O2 O2 Flow FiO2 Time Delivery Rate 11/05/18 97.5 75 18 100/56 97 Room Air 20:27 (71) Intake and Output 11/04/18 11/04/18 11/05/18 1515:00 23:00 07:00 OutputOutput Total 400 ml BalanceBalance -400 ml Exam H EENT exam; supple neck, no JVD. No lymphadenopathy. Midline trachea. No thyromegaly. Patient has multiple carious teeth. No neck masses. Chest exam; diminished breath sounds bilaterally. S1-S2 audible, no murmurs. Regular rhythm. Abdomen exam; soft, nondistended. No organomegaly. Bowel sounds audible. Extremity exam; no peripheral edema clubbing. CASINO BEVERAGE SERVER exam; patient is awake alert able to talk. Appears confused. No focal motor deficit. Results Result Diagram: 11/04/18 0456 11/04/18 045 Medications Medication Current Medications IV Flush (NS 3 ml) 3 ml PER PROTOCOL IV ; Start 10/25/18 at 23:00 Ondansetron HCl (Zofran Inj) 4 mg Q6H PRN IV NAUSEA/VOMITING; Start 10/25/18 at 23:00 Heparin Sodium (Porcine) (Heparin (5000 Units/1ml)) 5,000 unit Q12 SC Last administered on 10/27/18 20:32; Admin Dose 5,000 UNIT; Start 10/26/18 at 09:00; Status Hold Albuterol/ Ipratropium (Duoneb) 3 ml Q2H RESP THERAPY PRN HHN SHORTNESS OF BREATH; Start 10/25/18 at 23:00 Lorazepam (Ativan) 1 mg Q6H PRN IV ANXIETY Last administered on 10/30/18 15:49; Admin Dose 1 MG; Start 10/26/18 at 15:30 Thiamine HCl (Vitamin B1) 100 mg DAILY PO Last administered on 11/05/18 08:34; Admin Dose 100 MG; Start 10/29/18 at 09:00 Skin Resp Fact/ Shark/Phenyl Mercur (Hemorrhoidal Supp) 1 ea BID PRN [place] FOR HEMORROID PAIN/ITCHING; Start 10/29/18 at 21:00 Lubiprostone (Amitiza) 24 mcg BID PO Last administered on 11/05/18 22:18; Admin Dose 24 MCG; Start 10/29/18 at 21:00 Acetaminophen (Tylenol Liquid) 650 mg Q6 PRN PO MILD PAIN(1-3)OR ELEVATED TEMP Last administered on 11/04/18 20:29; Admin Dose 650 MG; Start 11/04/18 at 20:30 Megestrol Acetate (Megace Susp) 400 mg BID PO Last administered on 11/05/18 22:18; Admin Dose 400 MG; Start 11/05/18 at 15:00 MARSHAL CHINO MD Nov 05, 2018 22:40
[2018-11-06 02:28] VITALS: BP 123/74; PULSE 70; RESP 18
[2018-11-06 07:54] VITALS: BP 129/59; PULSE 69; RESP 16
--- NOTE | 2018-11-06 08:00 | CONS ---
Assessment/Plan Assessment/Plan Assessment/Plan (Daily) Reviewed consensus from the bioethics committee. Committee is in agreement with the primary care team to allow patients to fdc friends to make decisions on her behalf. It is the consensus that patient would not want to live in a debilitated condition in a custodial unit. Recommendations have been made for hospice care the patient to return to her home environment when primary care team stabilizes patient as much as possible. Will remain available as patient is marginal way may deteriorate at any time. If this occurs there will be no escalation of care and I would suggest at this time for in-house hospice care. Consultation Date/Type/Reason Admit Date/Time Oct 25, 2018 at 22:31 Initial Consult Date 10/28/18 Requesting Provider: TEMO ELLISON NP Date/Time of Note DATE: 11/06/18 TIME: 08:00 Exam/Review of Systems Exam Vitals Vital Signs Date Temp Pulse Resp B/P (MAP) Pulse Ox O2 O2 Flow FiO2 Time Delivery Rate 11/06/18 97.5 70 18 123/74 97 Room Air 02:28 (90) Intake and Output 11/05/18 11/05/18 11/06/18 1515:00 23:00 07:00 IntakeIntake Total 120 ml OutputOutput Total 600 ml 250 ml BalanceBalance -600 ml -130 ml Results Result Diagram: 11/04/18 0456 11/04/18 0456 Medications Medication Current Medications IV Flush (NS 3 ml) 3 ml PER PROTOCOL IV ; Start 10/25/18 at 23:00 Ondansetron HCl (Zofran Inj) 4 mg Q6H PRN IV NAUSEA/VOMITING; Start 10/25/18 at 23:00 Heparin Sodium (Porcine) (Heparin (5000 Units/1ml)) 5,000 unit Q12 SC Last administered on 10/27/18at 20:32; Admin Dose 5,000 UNIT; Start 10/26/18 at 09:00; Status Hold Albuterol/ Ipratropium (Duoneb) 3 ml Q2H RESP THERAPY PRN HHN SHORTNESS OF BREATH; Start 10/25/18 at 23:00 Lorazepam (Ativan) 1 mg Q6H PRN IV ANXIETY Last administered on 10/30/18at 15:49; Admin Dose 1 MG; Start 10/26/18 at 15:30 Thiamine HCl (Vitamin B1) 100 mg DAILY PO Last administered on 11/05/18 08:34; Admin Dose 100 MG; Start 10/29/18 at 09:00 Skin Resp Fact/ Shark/Phenyl Mercur (Hemorrhoidal Supp) 1 ea BID PRN [place] FOR HEMORROID PAIN/ITCHING; Start 10/29/18 at 21:00 Lubiprostone (Amitiza) 24 mcg BID PO Last administered on 11/05/18at 22:18; Admin Dose 24 MCG; Start 10/29/18 at 21:00 Acetaminophen (Tylenol Liquid) 650 mg Q6 PRN PO MILD PAIN(1-3)OR ELEVATED TEMP Last administered on 11/04/18at 20:29; Admin Dose 650 MG; Start 11/04/18 at 20:30 Megestrol Acetate (Megace Susp) 400 mg BID PO Last administered on 11/05/18 22:18; Admin Dose 400 MG; Start 11/05/18 at 15:00 Docusate Sodium (Colace Liquid Cup) 200 mg BID PO ; Start 11/06/18 at 09:00 Polyethylene Glycol (Miralax) 17 gm DAILY PO ; Start 11/06/18 at 09:00 DALLIN SNOW Nov 06, 2018 08:00
[2018-11-06] MEDS: DOCUSATE SODIUM 10 MG/ML (10ML CUP) PO SCH ×3 (09:00→21:45)
[2018-11-06] MEDS: MEGESTROL (40 MG/ML) 10ML CUP PO SCH ×2 (09:00→21:45)
[2018-11-06] MEDS: LUBIPROSTONE 24 MCG CAP PO SCH ×2 (09:01→21:45)
[2018-11-06] MEDS: THIAMINE 100 MG TAB PO SCH (09:01)
[2018-11-06] MEDS: POLYETHYLENE GLYCOL 17 GM PACKET PO SCH (09:01)
--- NOTE | 2018-11-06 09:15 | CONS ---
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 STAGING WITH CT CHEST WITH IV CONTRAST AND CT ABD/PELVIS WITH AND WITHOUT IV CONTRAST- REVIEWED BIOCHEM W-UP- UNREMARKABLE TUMOR MARKERS-NEG DOESN'T LOOK LIKE PT A GOOD CANDIDATE FOR AGGRESSIVE TREATMENT POST BIOETHICS COMMITTEE EVAL- AGREE WITH DNR, HOSPICE PALLIATIVE CARE EVAL AND F-UP ANEMIA COMPLEX MONITOR CLOSELY OBSERVE FOR BLEEDING AND HEMOLYSIS TRANSFUSE NEEDED Altered mental status possibly due to hypernatremia. CT BRAIN - NEG COPD. Patient been a current smoker. Advanced dementia. Emaciated state. Consultation Date/Type/Reason Admit Date/Time Oct 25, 2018 at 22:31 Initial Consult Date 10/28/18 Type of Consult hemeon Requesting Provider: TEMO ELLISON NP Date/Time of Note DATE: 11/06/18 TIME: 09:15 24 HR Interval Summary Free Text/Dictation DUPLICATE NOTE Exam/Review of Systems Exam Vitals Vital Signs Date Temp Pulse Resp B/P (MAP) Pulse Ox O2 O2 Flow FiO2 Time Delivery Rate 11/06/18 98.3 69 16 129/59 98 07:54 (82) 11/06/18 Room Air 02:28 Intake and Output 11/05/18 11/05/18 11/06/18 1515:00 23:00 07:00 IntakeIntake Total 120 ml OutputOutput Total 600 ml 250 ml BalanceBalance -600 ml -130 ml Results Result Diagram: 11/04/18 0456 11/04/18 0456 Medications Medication Current Medications IV Flush (NS 3 ml) 3 ml PER PROTOCOL IV ; Start 10/25/18 at 23:00 Ondansetron HCl (Zofran Inj) 4 mg Q6H PRN IV NAUSEA/VOMITING; Start 10/25/18 at 23:00 Heparin Sodium (Porcine) (Heparin (5000 Units/1ml)) 5,000 unit Q12 SC Last administered on 10/27/18at 20:32; Admin Dose 5,000 UNIT; Start 10/26/18 at 09:00; Status Hold Albuterol/ Ipratropium (Duoneb) 3 ml Q2H RESP THERAPY PRN HHN SHORTNESS OF BREATH; Start 10/25/18 at 23:00 Lorazepam (Ativan) 1 mg Q6H PRN IV ANXIETY Last administered on 10/30/18 15:49; Admin Dose 1 MG; Start 10/26/18 at 15:30 Thiamine HCl (Vitamin B1) 100 mg DAILY PO Last administered on 11/06/18 09:01; Admin Dose 100 MG; Start 10/29/18 at 09:00 Skin Resp Fact/ Shark/Phenyl Mercur (Hemorrhoidal Supp) 1 ea BID PRN [place] FOR HEMORROID PAIN/ITCHING; Start 10/29/18 at 21:00 Lubiprostone (Amitiza) 24 mcg BID PO Last administered on 11/06/18 09:01; Admin Dose 24 MCG; Start 10/29/18 at 21:00 Acetaminophen (Tylenol Liquid) 650 mg Q6 PRN PO MILD PAIN(1-3)OR ELEVATED TEMP Last administered on 11/04/18 20:29; Admin Dose 650 MG; Start 11/04/18 at 20:30 Megestrol Acetate (Megace Susp) 400 mg BID PO Last administered on 11/06/18 09:00; Admin Dose 400 MG; Start 11/05/18 at 15:00 Docusate Sodium (Colace Liquid Cup) 200 mg BID PO Last administered on 11/06/18 09:01; Admin Dose 200 MG; Start 11/06/18 at 09:00 Polyethylene Glycol (Miralax) 17 gm DAILY PO Last administered on 11/06/18 09:01; Admin Dose 17 GM; Start 11/06/18 at 09:00 MARSHAL CHINO MD Nov 06, 2018 09:15
--- NOTE | 2018-11-06 09:16 | CONS ---
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 STAGING WITH CT CHEST WITH IV CONTRAST AND CT ABD/PELVIS WITH AND WITHOUT IV CONTRAST- REVIEWED BIOCHEM W-UP- UNREMARKABLE TUMOR MARKERS-NEG DOESN'T LOOK LIKE PT A GOOD CANDIDATE FOR AGGRESSIVE TREATMENT POST BIOETHICS COMMITTEE EVAL- AGREE WITH DNR, HOSPICE PALLIATIVE CARE EVAL AND F-UP ANEMIA COMPLEX MONITOR CLOSELY OBSERVE FOR BLEEDING AND HEMOLYSIS TRANSFUSE NEEDED Altered mental status possibly due to hypernatremia. CT BRAIN - NEG COPD. Patient been a current smoker. Advanced dementia. Emaciated state. Consultation Date/Type/Reason Admit Date/Time Oct 25, 2018 at 22:31 Initial Consult Date 10/28/18 Type of Consult hemeon Requesting Provider: TEMO ELLISON NP Date/Time of Note DATE: 11/06/18 TIME: 09:16 24 HR Interval Summary Free Text/Dictation ALL NOTED NAD Exam/Review of Systems Exam Vitals Vital Signs Date Temp Pulse Resp B/P (MAP) Pulse Ox O2 O2 Flow FiO2 Time Delivery Rate 11/06/18 98.3 69 16 129/59 98 07:54 (82) 11/06/18 Room Air 02:28 Intake and Output 11/05/18 11/05/18 11/06/18 1515:00 23:00 07:00 IntakeIntake Total 120 ml OutputOutput Total 600 ml 250 ml BalanceBalance -600 ml -130 ml Exam H EENT exam; supple neck, no JVD. No lymphadenopathy. Midline trachea. No thyromegaly. Patient has multiple carious teeth. No neck masses. Chest exam; diminished breath sounds bilaterally. S1-S2 audible, no murmurs. Regular rhythm. Abdomen exam; soft, nondistended. No organomegaly. Bowel sounds audible. Extremity exam; no peripheral edema clubbing. CORPORATE CONSULTANT exam; patient is awake alert able to talk. Appears confused. No focal motor deficit. Results Result Diagram: 11/04/18 0456 11/04/18 0456 Medications Medication Current Medications IV Flush (NS 3 ml) 3 ml PER PROTOCOL IV ; Start 10/25/18 at 23:00 Ondansetron HCl (Zofran Inj) 4 mg Q6H PRN IV NAUSEA/VOMITING; Start 10/25/18 at 23:00 Heparin Sodium (Porcine) (Heparin (5000 Units/1ml)) 5,000 unit Q12 SC Last administered on 10/27/18 20:32; Admin Dose 5,000 UNIT; Start 10/26/18 at 09:00; Status Hold Albuterol/ Ipratropium (Duoneb) 3 ml Q2H RESP THERAPY PRN HHN SHORTNESS OF BREATH; Start 10/25/18 at 23:00 Lorazepam (Ativan) 1 mg Q6H PRN IV ANXIETY Last administered on 10/30/18 15:49; Admin Dose 1 MG; Start 10/26/18 at 15:30 Thiamine HCl (Vitamin B1) 100 mg DAILY PO Last administered on 11/06/18 09:01; Admin Dose 100 MG; Start 10/29/18 at 09:00 Skin Resp Fact/ Shark/Phenyl Mercur (Hemorrhoidal Supp) 1 ea BID PRN [place] FOR HEMORROID PAIN/ITCHING; Start 10/29/18 at 21:00 Lubiprostone (Amitiza) 24 mcg BID PO Last administered on 11/06/18 09:01; Admin Dose 24 MCG; Start 10/29/18 at 21:00 Acetaminophen (Tylenol Liquid) 650 mg Q6 PRN PO MILD PAIN(1-3)OR ELEVATED TEMP Last administered on 11/04/18 20:29; Admin Dose 650 MG; Start 11/04/18 at 20:30 Megestrol Acetate (Megace Susp) 400 mg BID PO Last administered on 11/06/18 09:00; Admin Dose 400 MG; Start 11/05/18 at 15:00 Docusate Sodium (Colace Liquid Cup) 200 mg BID PO Last administered on 11/06 09:01; Admin Dose 200 MG; Start 11/06/18 at 09:00 Polyethylene Glycol (Miralax) 17 gm DAILY PO Last administered on 11/06/18 09:01; Admin Dose 17 GM; Start 11/06/18 at 09:00 MARSHAL CHINO MD Nov 06, 2018 09:16
--- NOTE | 2018-11-06 11:07 | PN ---
Date/Time of Note Date/Time of Note DATE: 11/06/18 TIME: 11:06 Assessment/Plan VTE Prophylaxis Risk score (from Nsg)>0 risk: 4 SCD applied (from Ns): No SCD contraindicated: other Pharmacological prophylaxis: NA/contraindicated Pharm contraindication: bleeding Lines/Catheters IV [facility] (from [facility]): Peripheral IV Urinary Cath still in place: Yes Reason Cath still needed: terminal illness/intractable pain, other (indicate) Assessment/Plan Hospital Course SUBJECTIVE: Denies any pain. OBJECTIVE: Physical Exam General: Thin, frail looking, 73 year-old female lying in bed in no apparent di stress. HEENT: Normocephalic, atraumatic. Eyes: Anicteric sclerae, conjunctivae clear. ENT: Nasal septum midline, oral mucosa moist. Neck supple, no JVD noticed. Respiratory: Bilaterally diminished breath sounds. No use of accessory muscles of respiration. No adventitious breath sounds. Cardiovascular: S1, S2 heard. Regular rate and rhythm Abdomen: Soft, nontender, and nondistended. Bowel sounds positive in all 4 quadrants. Genitourinary: Deferred. Extremities: No cyanosis, no clubbing, no edema. Peripheral pulses palpable. Neurologic: The patient is awake and alert. Oriented to self. Skin: Normal skin turgor. No skin rashes. Labs & Vitals per chart ASSESSMENT & PLAN 73-year-old female who was brought in by paramedics because of altered level of consciousness, who was admitted to inpatient setting for further treatment and evaluation. 1. Acute encephalopathy. Unknown baseline mental status. Brain imaging negative for any acute infarcts. Continue frequent reorientation. 2. Large right hilar lung mass, directly invading into the adjacent subcarinal mediastinum, compatible with primary lung malignancy. Being followed by pulmonology. Not an appropriate candidate for aggressive management as per oncology. 3. Hematochezia. Status post evaluation by gastroenterology. Monitor H&H closely. Transfuse as needed. 4. Vaginal bleeding. Resolved. Patient refused transvaginal exam. Pelvic ultrasound showed mildly enlarged endometrium. 5. Normocytic anemia. Etiology could be multifactorial including underlying malignancy and acute blood loss. Monitor H&H closely. Transfuse blood products as indicated. 6. Failure to thrive. Social work following. 7. Moderate to severe protein-calorie malnutrition. S/P RD evaluation. Dietary supplements. 8. Fluids, electrolytes, and nutrition. Pured diet with nectar thick liquids. 9. DVT prophylaxis. Chemical DVT prophylaxis contraindicated. 10. Plan. Status post bioethics meeting on 11/03/2018. The bioethics committee met with the patient is a long-term roommates. Bioethics committee decided to make the patient a DNR. Bioethics committee decided to do hospice evaluation on this patient said this is in the best interest of this patient, provided the patient's extensive metastatic malignancy and poor prognosis. The patient was seen in collaboration with Dr. Crow. Result Diagram: 11/04/18 0456 11/04/186 Exam/Review of Systems Exam Vitals Vital Signs Date Temp Pulse Resp B/P (MAP) Pulse Ox O2 O2 Flow FiO2 Time Delivery Rate 11/06/18 98.3 69 16 129/59 98 07:54 (82) 11/06/18 Room Air 02:28 Intake and Output 11/05/18 11/05/18 11/06/18 1515:00 23:00 07:00 IntakeIntake Total 120 ml OutputOutput Total 600 ml 250 ml BalanceBalance -600 ml -130 ml Medications Medication Current Medications IV Flush (NS 3 ml) 3 ml PER PROTOCOL IV ; Start 10/25/18 at 23:00 Ondansetron HCl (Zofran Inj) 4 mg Q6H PRN IV NAUSEA/VOMITING; Start 10/25/18 at 23:00 Heparin Sodium (Porcine) (Heparin (5000 Units/1ml)) 5,000 unit Q12 SC Last adm inistered on 10/27/18at 20:32; Admin Dose 5,000 UNIT; Start 10/26/18 at 09:00; Status Hold Albuterol/ Ipratropium (Duoneb) 3 ml Q2H RESP THERAPY PRN HHN SHORTNESS OF BREATH; Start 10/25/18 at 23:00 Lorazepam (Ativan) 1 mg Q6H PRN IV ANXIETY Last administered on 10/30/18at 15:49; Admin Dose 1 MG; Start 10/26/18 at 15:30 Thiamine HCl (Vitamin B1) 100 mg DAILY PO Last administered on 11/06/18at 09:01; Admin Dose 100 MG; Start 10/29/18 at 09:00 Skin Resp Fact/ Shark/Phenyl Mercur (Hemorrhoidal Supp) 1 ea BID PRN [place] FOR HEMORROID PAIN/ITCHING; Start 10/29/18 at 21:00 Lubiprostone (Amitiza) 24 mcg BID PO Last administered on 11/06/18 09:01; Admin Dose 24 MCG; Start 10/29/18 at 21:00 Acetaminophen (Tylenol Liquid) 650 mg Q6 PRN PO MILD PAIN(1-3)OR ELEVATED TEMP Last administered on 11/04/18 20:29; Admin Dose 650 MG; Start 11/04/18 at 20:30 Megestrol Acetate (Megace Susp) 400 mg BID PO Last administered on 11/06/18 09:00; Admin Dose 400 MG; Start 11/05/18 at 15:00 Docusate Sodium (Colace Liquid Cup) 200 mg BID PO Last administered on 11/06/18 09:01; Admin Dose 200 MG; Start 11/06/18 at 09:00 Polyethylene Glycol (Miralax) 17 gm DAILY PO Last administered on 11/06/18 09:01; Admin Dose 17 GM; Start 11/06/18 at 09:00 NORBERT BUSBY NP Nov 06, 2018 11:07
[2018-11-06] MEDS: ACETAMINOPHEN 650MG/20.3ML CUP PO PRN ×2 (12:48→20:16)
[2018-11-06 14:00] VITALS: BP 91/60; PULSE 83; RESP 24
[2018-11-06] MEDS: SOD CHLORIDE 0.9% 1,000 ML IV SCH (17:03)
[2018-11-06 20:00] VITALS: BP 95/53; PULSE 77; RESP 17
[2018-11-07 02:35] VITALS: BP 107/59; PULSE 62; RESP 16
[2018-11-07 08:30] VITALS: BP 118/83; PULSE 67; RESP 17
[2018-11-07] MEDS: DOCUSATE SODIUM 10 MG/ML (10ML CUP) PO SCH ×2 (08:47→20:18)
[2018-11-07] MEDS: THIAMINE 100 MG TAB PO SCH (08:47)
[2018-11-07] MEDS: LUBIPROSTONE 24 MCG CAP PO SCH ×2 (08:47→20:18)
[2018-11-07] MEDS: POLYETHYLENE GLYCOL 17 GM PACKET PO SCH (08:47)
[2018-11-07] MEDS: SOD CHLORIDE 0.9% 1,000 ML IV SCH ×3 (08:47→23:21)
[2018-11-07] MEDS: MEGESTROL (40 MG/ML) 10ML CUP PO SCH ×2 (08:47→20:17)
--- NOTE | 2018-11-07 10:28 | PN ---
Date/Time of Note Date/Time of Note DATE: 11/07/18 TIME: : Assessment/Plan VTE Prophylaxis Risk score (from Ns)>0 risk: 6 SCD applied (from Ns): No SCD contraindicated: patient refusal Pharmacological prophylaxis: NA/contraindicated Pharm contraindication: bleeding Lines/Catheters IV C[facility]ter Type (from [facility]): Peripheral IV Urinary Cath still in place: Yes Reason Cath still needed: terminal illness/intractable pain Assessment/Plan Hospital Course SUBJECTIVE: Denies any pain. Patient refusing to eat. OBJECTIVE: Physical Exam General: Thin, frail looking, 73 year-old female lying in bed in no apparent distress. HEENT: Normocephalic, atraumatic. Eyes: Anicteric sclerae, conjunctivae clear. ENT: Nasal septum midline, oral mucosa moist. Neck supple, no JVD noticed. Respiratory: Bilaterally diminished breath sounds. No use of accessory muscles of respiration. No adventitious breath sounds. Cardiovascular: S1, S2 heard. Regular rate and rhythm Abdomen: Soft, nontender, and nondistended. Bowel sounds positive in all 4 quadrants. Genitourinary: Deferred. Extremities: No cyanosis, no clubbing, no edema. Peripheral pulses palpable. Neurologic: The patient is awake and alert. Oriented to self. Skin: Normal skin turgor. No skin rashes. Labs & Vitals per chart ASSESSMENT & PLAN 73-year-old female who was brought in by paramedics because of altered level of consciousness, who was admitted to inpatient setting for further treatment and evaluation. 1. Acute encephalopathy. Unknown baseline mental status. Brain imaging negative for any acute infarcts. Continue frequent reorientation. 2. Large right hilar lung mass, directly invading into the adjacent subcarinal mediastinum, compatible with primary lung malignancy. Being followed by pulmonology. Not an appropriate candidate for aggressive management as per oncology. 3. Hematochezia. Status post evaluation by gastroenterology. Monitor H&H closely. Transfuse as needed. 4. Vaginal bleeding. Resolved. Patient refused transvaginal exam. Pelvic ultrasound showed mildly enlarged endometrium. 5. Normocytic anemia. Etiology could be multifactorial including underlying malignancy and acute blood loss. Monitor H&H closely. Transfuse blood products as indicated. 6. Failure to thrive. Social work following. 7. Moderate to severe protein-calorie malnutrition. S/P RD evaluation. Dietary supplements. 8. Fluids, electrolytes, and nutrition. Pured diet with nectar thick liquids if the patient eats. IVFs. 9. DVT prophylaxis. Chemical DVT prophylaxis contraindicated. 10. Plan. Status post bioethics meeting on 11/03/2018. The bioethics committee met with the patient is a long-term roommates. Bioethics committee decided to make the patient a DNR. Bioethics committee decided to do hospice evaluation on this patient said this is in the best interest of this patient, provided the patient 's extensive metastatic malignancy and poor prognosis. The patient was seen in collaboration with Dr. Crow. Result Diagram: 11/04/18 0456 11/04/18 0456 Exam/Review of Systems Exam Vitals Vital Signs Date Temp Pulse Resp B/P (MAP) Pulse Ox O2 O2 Flow FiO2 Time Delivery Rate 11/07/18 98.0 67 17 118/83 98 Room Air 08:30 (95) Intake and Output 11/06/18 11/06/18 11/07/18 1515:00 23:00 07:00 IntakeIntake Total 180 ml 35 ml 920 ml OutputOutput Total 250 ml BalanceBalance 180 ml -215 ml 920 ml Medications Medication Current Medications IV Flush (NS 3 ml) 3 ml PER PROTOCOL IV ; Start 10/25/18 at 23:00 Ondansetron HCl (Zofran Inj) 4 mg Q6H PRN IV NAUSEA/VOMITING; Start 10/25/18 at 23:00 Heparin Sodium (Porcine) (Heparin (5000 Units/1ml)) 5,000 unit Q12 SC Last administered on 10/27/18at 20:32; Admin Dose 5,000 UNIT; Start 10/26/18 at 09:00; Status Hold Albuterol/ Ipratropium (Duoneb) 3 ml Q2H RESP THERAPY PRN HHN SHORTNESS OF VERONICA TH; Start 10/25/18 at 23:00 Lorazepam (Ativan) 1 mg Q6H PRN IV ANXIETY Last administered on 10/30/18at 15:49; Admin Dose 1 MG; Start 10/26/18 at 15:30 Thiamine HCl (Vitamin B1) 100 mg DAILY PO Last administered on 11/07/18at 08:47; Admin Dose 100 MG; Start 10/29/18 at 09:00 Skin Resp Fact/ Shark/Phenyl Mercur (Hemorrhoidal Supp) 1 ea BID PRN [place] FOR HEMORROID PAIN/ITCHING; Start 10/29/18 at 21:00 Lubiprostone (Amitiza) 24 mcg BID PO Last administered on 11/07/18 08:47; Admin Dose 24 MCG; Start 10/29/18 at 21:00 Acetaminophen (Tylenol Liquid) 650 mg Q6 PRN PO MILD PAIN(1-3)OR ELEVATED TEMP Last administered on 11/06/18 20:16; Admin Dose 650 MG; Start 11/04/18 at 20:30 Megestrol Acetate (Megace Susp) 400 mg BID PO Last administered on 11/07/18 08:47; Admin Dose 400 MG; Start 11/05/18 at 15:00 Docusate Sodium (Colace Liquid Cup) 200 mg BID PO Last administered on 11/07/18 08:47; Admin Dose 200 MG; Start 11/06/18 at 09:00 Polyethylene Glycol (Miralax) 17 gm DAILY PO Last administered on 11/07/18 08:47; Admin Dose 17 GM; Start 11/06/18 at 09:00 Sodium Chloride 1,000 ml @ 70 mls/hr [id number] IV Last administered on 11/07/18 08:47; Admin Dose 70 MLS/HR; Start 11/06/18 at 17:00 NORBERT BUSBY NP Nov 07, 2018 10:28
[2018-11-07 14:27] VITALS: BP 100/55; PULSE 89
[2018-11-07] MEDS: LORAZEPAM 2 MG INJ IV PRN (17:33)
[2018-11-07 19:35] VITALS: BP 97/48; PULSE 73; RESP 20
--- NOTE | 2018-11-07 22:50 | CONS ---
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 STAGING WITH CT CHEST WITH IV CONTRAST AND CT ABD/PELVIS WITH AND WITHOUT IV CONTRAST- REVIEWED BIOCHEM W-UP- UNREMARKABLE TUMOR MARKERS-NEG DOESN'T LOOK LIKE PT A GOOD CANDIDATE FOR AGGRESSIVE TREATMENT POST BIOETHICS COMMITTEE EVAL- AGREE WITH DNR, HOSPICE PALLIATIVE CARE EVAL AND F-UP ANEMIA COMPLEX MONITOR CLOSELY OBSERVE FOR BLEEDING AND HEMOLYSIS TRANSFUSE NEEDED Altered mental status possibly due to hypernatremia. CT BRAIN - NEG COPD. Patient been a current smoker. Advanced dementia. Emaciated state. Consultation Date/Type/Reason Admit Date/Time Oct 25, 2018 at 22:31 Initial Consult Date 10/28/18 Type of Consult hemeon Requesting Provider: TEMO ELLISON NP Date/Time of Note DATE: 11/07/18 TIME: 22:49 24 HR Interval Summary Free Text/Dictation ALL NOTED NAD NO BLEEDING Exam/Review of Systems Exam Vitals Vital Signs Date Temp Pulse Resp B/P (MAP) Pulse Ox O2 O2 Flow FiO2 Time Delivery Rate 11/07/18 97.9 73 20 97/48 (64) 98 Room Air 19:35 Intake and Output 11/06/18 11/06/18 11/07/18 1515:00 23:00 07:00 IntakeIntake Total 180 ml 35 ml 920 ml OutputOutput Total 250 ml 300 ml BalanceBalance 180 ml -215 ml 620 ml Exam H EENT exam; supple neck, no JVD. No lymphadenopathy. Midline trachea. No thyromegaly. Patient has multiple carious teeth. No neck masses. Chest exam; diminished breath sounds bilaterally. S1-S2 audible, no murmurs. Regular rhythm. Abdomen exam; soft, nondistended. No organomegaly. Bowel sounds audible. Extremity exam; no peripheral edema clubbing. GEAR HOBBER OPERATOR exam; patient is awake alert able to talk. Appears confused. No focal motor deficit. Results Result Diagram: 11/04/18 0456 11/04/18 0456 Medications Medication Current Medications IV Flush (NS 3 ml) 3 ml PER PROTOCOL IV ; Start 10/25/18 at 23:00 Ondansetron HCl (Zofran Inj) 4 mg Q6H PRN IV NAUSEA/VOMITING; Start 10/25/18 at 23:00 Heparin Sodium (Porcine) (Heparin (5000 Units/1ml)) 5,000 unit Q12 SC Last administered on 10/27/18 20:32; Admin Dose 5,000 UNIT; Start 10/26/18 at 09:00; Status Hold Albuterol/ Ipratropium (Duoneb) 3 ml Q2H RESP THERAPY PRN HHN SHORTNESS OF BREATH; Start 10/25/18 at 23:00 Lorazepam (Ativan) 1 mg Q6H PRN IV ANXIETY Last administered on 11/07/18 17:33; Admin Dose 1 MG; Start 10/26/18 at 15:30 Thiamine HCl (Vitamin B1) 100 mg DAILY PO Last administered on 11/07/18 08:47; Admin Dose 100 MG; Start 10/29/18 at 09:00 Skin Resp Fact/ Shark/Phenyl Mercur (Hemorrhoidal Supp) 1 ea BID PRN [place] FOR HEMORROID PAIN/ITCHING; Start 10/29/18 at 21:00 Lubiprostone (Amitiza) 24 mcg BID PO Last administered on 11/07/18 20:18; Admi n Dose 24 MCG; Start 10/29/18 at 21:00 Acetaminophen (Tylenol Liquid) 650 mg Q6 PRN PO MILD PAIN(1-3)OR ELEVATED TEMP Last administered on 11/06/18 20:16; Admin Dose 650 MG; Start 11/04/18 at 20:30 Megestrol Acetate (Megace Susp) 400 mg BID PO Last administered on 11/07/18 20:17; Admin Dose 400 MG; Start 11/05/18 at 15:00 Docusate Sodium (Colace Liquid Cup) 200 mg BID PO Last administered on 11/07/18 20:18; Admin Dose 200 MG; Start 11/06/18 at 09:00 Polyethylene Glycol (Miralax) 17 gm DAILY PO Last administered on 11/07/18 08:47; Admin Dose 17 GM; Start 11/06/18 at 09:00 Sodium Chloride 1,000 ml @ 70 mls/hr [id number] IV Last administered on 11/07/18 08:47; Admin Dose 70 MLS/HR; Start 11/06/18 at 17:00 MARSHAL CHINO MD Nov 07, 2018 22:50
[2018-11-08 02:10] VITALS: BP 138/57; PULSE 70; RESP 18
[2018-11-08 08:38] VITALS: BP 146/61; PULSE 67; RESP 16
[2018-11-08] MEDS: THIAMINE 100 MG TAB PO SCH (08:45)
[2018-11-08] MEDS: LUBIPROSTONE 24 MCG CAP PO SCH ×2 (08:45→20:54)
[2018-11-08] MEDS: MEGESTROL (40 MG/ML) 10ML CUP PO SCH ×2 (08:45→20:55)
[2018-11-08] MEDS: DOCUSATE SODIUM 10 MG/ML (10ML CUP) PO SCH ×2 (08:46→20:55)
[2018-11-08] MEDS: POLYETHYLENE GLYCOL 17 GM PACKET PO SCH (08:46)
--- NOTE | 2018-11-08 10:51 | PN ---
Date/Time of Note Date/Time of Note DATE: 11/08/18 TIME: 10:47 Assessment/Plan VTE Prophylaxis [place] [facility] risk: 6 SCD applied [place] [facility] No SCD contraindicated: other Pharmacological prophylaxis: NA/contraindicated Pharm contraindication: other (anemia) Lines/Catheters [facility] Peripheral IV Urinary Cath still in place: Yes Reason Cath still needed: other (indicate) (monitor I&O) Assessment/Plan Hospital Course 1. Acute encephalopathy. Unknown baseline mental status. Brain imaging with no acute findings Continue reorientation. 2. Large right hilar lung mass, directly invading into the adjacent subcarinal mediastinum, compatible with primary lung malignancy. Advertising Agency Manager and oncologist finding. Not a candidate for aggressive therapy Hospice care evaluation 3. Hematochezia. Was seen by GI consult. No obvious bleeding at this time. Monitor H&H closely. Transfuse as needed. 4. Vaginal bleeding. Resolved. Patient refused transvaginal exam. Pelvic ultrasound showed mildly enlarged endometrium. Monitor 5. Normocytic anemia. Suspect multifactorial : Likely underlying malignancy and acute blood loss. Monitor H&H closely. Transfuse blood products as indicated. Stable at present 6. Failure to thrive. Social work following. Continue dietary supplement 7. Moderate to severe protein-calorie malnutrition. Seen by dietitian Dietary supplements. Disposition and plan. Continue supportive measures. Plan for hospice evaluation. Discussed POC with Dr. Crow Result Diagram: 11/04/186 11/04/18455 Subjective 24 Hr Interval Summary Free Text/Dictation alert, forgetful. no s/s of distress. Exam/Review of Systems Exam Vitals Vital Signs Date Temp Pulse Resp B/P (MAP) Pulse Ox O2 O2 Flow FiO2 Time Delivery Rate 11/08/18 97.6 67 16 146/61 95 Room Air 08:38 (89) Intake and Output 11/07/18 11/07/18 11/08/18 1515:00 23:00 07:00 IntakeIntake Total 405 ml 820 ml 740 ml OutputOutput Total 150 ml 150 ml 300 ml BalanceBalance 255 ml 670 ml 440 ml Constitutional: alert; No oriented Psych: nl mood/affect Neck: supple, non-tender Respiratory: other (no obvious wheezing/rhonchi) Cardiovascular: other (regular rate ) Neurological: nl speech; No nl mental status Medications Medication Current Medications IV Flush (NS 3 ml) 3 ml PER PROTOCOL IV ; Start 10/25/18 at 23:00 Ondansetron HCl (Zofran Inj) 4 mg Q6H PRN IV NAUSEA/VOMITING; Start 10/25/18 at 23:00 Heparin Sodium (Porcine) (Heparin (5000 Units/1ml)) 5,000 unit Q12 SC Last administered on 10/27/18 20:32; Admin Dose 5,000 UNIT; Start 10/26/18 at 09:00; Status Hold Albuterol/ Ipratropium (Duoneb) 3 ml Q2H RESP THERAPY PRN HHN SHORTNESS OF BREATH; Start 10/25/18 at 23:00 Lorazepam (Ativan) 1 mg Q6H PRN IV ANXIETY Last administered on 11/07/18 17:33; Admin Dose 1 MG; Start 10/26/18 at 15:30 Thiamine HCl (Vitamin B1) 100 mg DAILY PO Last administered on 11/08/18 08:45; Admin Dose 100 MG; Start 10/29/18 at 09:00 Skin Resp Fact/ Shark/Phenyl Mercur (Hemorrhoidal Supp) 1 ea BID PRN [place] FOR HEMORROID PAIN/ITCHING; Start 10/29/18 at 21:00 Lubiprostone (Amitiza) 24 mcg BID PO Last administered on 11/08/18 08:45; Admin Dose 24 MCG; Start 10/29/18 at 21:00 Acetaminophen (Tylenol Liquid) 650 mg Q6 PRN PO MILD PAIN(1-3)OR ELEVATED TEMP Last administered on 11/06/18 20:16; Admin Dose 650 MG; Start 11/04/18 at 20:30 Megestrol Acetate (Megace Susp) 400 mg BID PO Last administered on 11/08/18 08:45; Admin Dose 400 MG; Start 11/05/18 at 15:00 Docusate Sodium (Colace Liquid Cup) 200 mg BID PO Last administered on 11/07/18 20:18; Admin Dose 200 MG; Start 11/06/18 at 09:00 Polyethylene Glycol (Miralax) 17 gm DAILY PO Last administered on 11/07/18 08:47; Admin Dose 17 GM; Start 11/06/18 at 09:00 Sodium Chloride 1,000 ml @ 70 mls/hr [id number] IV Last administered on 11/07/18at 23:21; Admin Dose 70 MLS/HR; Start 11/06/18 at 17:00 TEMO ELLISON NP Nov 08, 2018 10:51
[2018-11-08] MEDS: SOD CHLORIDE 0.9% 1,000 ML IV SCH (13:26)
[2018-11-08 13:45] VITALS: BP 106/64; PULSE 68; RESP 17
[2018-11-08] MEDS: LORAZEPAM 2 MG INJ IV PRN (18:40)
[2018-11-08 21:06] VITALS: BP 128/62; PULSE 66; RESP 16
--- NOTE | 2018-11-08 22:35 | CONS ---
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 STAGING WITH CT CHEST WITH IV CONTRAST AND CT ABD/PELVIS WITH AND WITHOUT IV CONTRAST- REVIEWED BIOCHEM W-UP- UNREMARKABLE TUMOR MARKERS-NEG DOESN'T LOOK LIKE PT A GOOD CANDIDATE FOR AGGRESSIVE TREATMENT POST BIOETHICS COMMITTEE EVAL- AGREE WITH DNR, HOSPICE PALLIATIVE CARE F-UP ANEMIA COMPLEX MONITOR CLOSELY OBSERVE FOR BLEEDING AND HEMOLYSIS TRANSFUSE NEEDED Altered mental status possibly due to hypernatremia. CT BRAIN - NEG COPD. Patient been a current smoker. Advanced dementia. Emaciated state. Consultation Date/Type/Reason Admit Date/Time Oct 25, 2018 at 22:31 Initial Consult Date 10/28/18 Type of Consult hemeon Requesting Provider: TEMO ELLISON NP Date/Time of Note DATE: 11/08/18 TIME: 22:34 24 HR Interval Summary Free Text/Dictation ALL NOTED NAD Exam/Review of Systems Exam Vitals Vital Signs Date Temp Pulse Resp B/P (MAP) Pulse Ox O2 O2 Flow FiO2 Time Delivery Rate 11/08/18 98.2 66 16 128/62 94 Room Air 21:06 (84) Intake and Output 11/07/18 11/07/18 11/08/18 1515:00 23:00 07:00 IntakeIntake Total 405 ml 820 ml 740 ml OutputOutput Total 150 ml 150 ml 300 ml BalanceBalance 255 ml 670 ml 440 ml Exam H EENT exam; supple neck, no JVD. No lymphadenopathy. Midline trachea. No thyromegaly. Patient has multiple carious teeth. No neck masses. Chest exam; diminished breath sounds bilaterally. S1-S2 audible, no murmurs. Regular rhythm. Abdomen exam; soft, nondistended. No organomegaly. Bowel sounds audible. Extremity exam; no peripheral edema clubbing. PROPERTY MAINTENANCE SUPERVISOR exam; patient is awake alert able to talk. Appears confused. No focal motor deficit. Results Result Diagram: 11/04/18 0456 11/04/18 0456 Medications Medication Current Medications IV Flush (NS 3 ml) 3 ml PER PROTOCOL IV ; Start 10/25/18 at 23:00 Ondansetron HCl (Zofran Inj) 4 mg Q6H PRN IV NAUSEA/VOMITING; Start 10/25/18 at 23:00 Heparin Sodium (Porcine) (Heparin (5000 Units/1ml)) 5,000 unit Q12 SC Last administered on 10/27/18 20:32; Admin Dose 5,000 UNIT; Start 10/26/18 at 09:00; Status Hold Albuterol/ Ipratropium (Duoneb) 3 ml Q2H RESP THERAPY PRN HHN SHORTNESS OF BREATH; Start 10/25/18 at 23:00 Lorazepam (Ativan) 1 mg Q6H PRN IV ANXIETY Last administered on 11/08/18 18:40; Admin Dose 1 MG; Start 10/26/18 at 15:30 Thiamine HCl (Vitamin B1) 100 mg DAILY PO Last administered on 11/08/18 08:45; Admin Dose 100 MG; Start 10/29/18 at 09:00 Skin Resp Fact/ Shark/Phenyl Mercur (Hemorrhoidal Supp) 1 ea BID PRN [place] FOR HEMORROID PAIN/ITCHING; Start 10/29/18 at 21:00 Lubiprostone (Amitiza) 24 mcg BID PO Last administered on 11/08/18 08:45; Admin Dose 24 MCG; Start 10/29/18 at 21:00 Acetaminophen (Tylenol Liquid) 650 mg Q6 PRN PO MILD PAIN(1-3)OR ELEVATED TEMP Last administered on 11/06/18 20:16; Admin Dose 650 MG; Start 11/04/18 at 20:30 Megestrol Acetate (Megace Susp) 400 mg BID PO Last administered on 11/08/18 08:45; Admin Dose 400 MG; Start 11/05/18 at 15:00 Docusate Sodium (Colace Liquid Cup) 200 mg BID PO Last administered on 11/07/18 20:18; Admin Dose 200 MG; Start 11/06/18 at 09:00 Polyethylene Glycol (Miralax) 17 gm DAILY PO Last administered on 11/07/18 08:47; Admin Dose 17 GM; Start 11/06/18 at 09:00 Sodium Chloride 1,000 ml @ 70 mls/hr [id number] IV Last administered on 11/08/18 13:26; Admin Dose 70 MLS/HR; Start 11/06/18 at 17:00 MARSHAL CHINO MD Nov 08, 2018 22:35
[2018-11-09 01:20] VITALS: BP 124/65; PULSE 74; RESP 16
[2018-11-09] MEDS: SOD CHLORIDE 0.9% 1,000 ML IV SCH ×4 (02:12→23:24)
[2018-11-09 08:15] VITALS: BP 123/83; PULSE 74; RESP 20
[2018-11-09] MEDS: LORAZEPAM 2 MG INJ IV PRN (08:39)
[2018-11-09] MEDS: LUBIPROSTONE 24 MCG CAP PO SCH ×2 (08:40→20:55)
[2018-11-09] MEDS: POLYETHYLENE GLYCOL 17 GM PACKET PO SCH (08:41)
[2018-11-09] MEDS: MEGESTROL (40 MG/ML) 10ML CUP PO SCH ×2 (08:41→20:56)
[2018-11-09] MEDS: DOCUSATE SODIUM 10 MG/ML (10ML CUP) PO SCH ×2 (08:41→20:55)
[2018-11-09] MEDS: THIAMINE 100 MG TAB PO SCH (08:41)
--- NOTE | 2018-11-09 12:13 | PN ---
Date/Time of Note Date/Time of Note DATE: 11/09/18 TIME: 12:10 Assessment/Plan VTE Prophylaxis Risk score (from Ns)>0 risk: 6 SCD applied (from Ns): Yes Pharmacological prophylaxis: NA/contraindicated Pharm contraindication: other (anemia) Lines/Catheters IV [facility] Type (from [facility]): Peripheral IV Urinary Cath still in place: Yes Reason Cath still needed: other (indicate) (monitor I&O ) Assessment/Plan Hospital Course 1. Acute encephalopathy. Unknown baseline mental status. Brain imaging with no acute findings Continue reorientation. 2. Large right hilar lung mass, directly invading into the adjacent subcarinal mediastinum, compatible with primary lung malignancy. 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 Not a candidate for aggressive therapy Hospice care evaluation 3. Hematochezia. Was seen by GI consult. No obvious bleeding at this time. Monitor H&H closely. Transfuse as needed. 4. Vaginal bleeding. Resolved. Patient refused transvaginal exam. Pelvic ultrasound showed mildly enlarged endometrium. Monitor 5. Normocytic anemia. Suspect multifactorial : Likely underlying malignancy and acute blood loss. Monitor H&H closely. Transfuse blood products as indicated. Stable at present 6. Failure to thrive. Social work following. Continue dietary supplement 7. Moderate to severe protein-calorie malnutrition. Seen by dietitian Dietary supplements. Disposition and plan. Continue supportive measures. Awaiting hospice eval. continue supportive care Discussed POC with Dr. Vela Subjective 24 Hr Interval Summary Free Text/Dictation patient with no respiratory distress. Still confused Exam/Review of Systems Exam Vitals Vital Signs Date Temp Pulse Resp B/P (MAP) Pulse Ox O2 O2 Flow FiO2 Time Delivery Rate 11/09/18 98.1 74 20 123/83 99 Room Air 08:15 (96) Intake and Output 11/08/18 11/08/18 11/09/18 1515:00 23:00 07:00 IntakeIntake Total 670 ml 245 ml 755 ml OutputOutput Total 250 ml BalanceBalance 670 ml 245 ml 505 ml Exam Constitutional: alert, confused Psych: nl mood/affect Neck: supple, non-tender Respiratory: other (no obvious wheezing/rhonchi) Cardiovascular: other (regular rate ) Neurological: nl speech; No nl mental status Medications Medication Current Medications IV Flush (NS 3 ml) 3 ml PER PROTOCOL IV ; Start 10/25/18 at 23:00 Ondansetron HCl (Zofran Inj) 4 mg Q6H PRN IV NAUSEA/VOMITING; Start 10/25/18 at 23:00 Heparin Sodium (Porcine) (Heparin (5000 Units/1ml)) 5,000 unit Q12 SC Last administered on 10/27/18 20:32; Admin Dose 5,000 UNIT; Start 10/26/18 at 09:00; Status Hold Albuterol/ Ipratropium (Duoneb) 3 ml Q2H RESP THERAPY PRN HHN SHORTNESS OF BREATH; Start 10/25/18 at 23:00 Lorazepam (Ativan) 1 mg Q6H PRN IV ANXIETY Last administered on 11/09/18 08:39; Admin Dose 1 MG; Start 10/26/18 at 15:30 Thiamine HCl (Vitamin B1) 100 mg DAILY PO Last administered on 11/08/18 08:45; Admin Dose 100 MG; Start 10/29/18 at 09:00 Skin Resp Fact/ Shark/Phenyl Mercur (Hemorrhoidal Supp) 1 ea BID PRN [place] FOR HEMORROID PAIN/ITCHING; Start 10/29/18 at 21:00 Lubiprostone (Amitiza) 24 mcg BID PO Last administered on 11/08/18 08:45; Admin Dose 24 MCG; Start 10/29/18 at 21:00 Acetaminophen (Tylenol Liquid) 650 mg Q6 PRN PO MILD PAIN(1-3)OR ELEVATED TEMP Last administered on 11/06/18 20:16; Admin Dose 650 MG; Start 11/04/18 at 20:30 Megestrol Acetate (Megace Susp) 400 mg BID PO Last administered on 11/08/18 08:45; Admin Dose 400 MG; Start 11/05/18 at 15:00 Docusate Sodium (Colace Liquid Cup) 200 mg BID PO Last administered on 11/07 20:18; Admin Dose 200 MG; Start 11/06/18 at 09:00 Polyethylene Glycol (Miralax) 17 gm DAILY PO Last administered on 11/07/18 08:47; Admin Dose 17 GM; Start 11/06/18 at 09:00 Sodium Chloride 1,000 ml @ 70 mls/hr [id number] IV Last administered on 11/09/18 04:31; Admin Dose 70 MLS/HR; Start 11/06/18 at 17:00 TEMO ELLISON NP Nov 09, 2018 12:12
[2018-11-09 14:05] VITALS: BP 136/74; PULSE 80; RESP 18
--- NOTE | 2018-11-09 18:54 | CONS ---
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 STAGING WITH CT CHEST WITH IV CONTRAST AND CT ABD/PELVIS WITH AND WITHOUT IV CONTRAST- REVIEWED BIOCHEM W-UP- UNREMARKABLE TUMOR MARKERS-NEG DOESN'T LOOK LIKE PT A GOOD CANDIDATE FOR AGGRESSIVE TREATMENT POST BIOETHICS COMMITTEE EVAL- AGREE WITH DNR, HOSPICE PALLIATIVE CARE F-UP ANEMIA COMPLEX MONITOR CLOSELY OBSERVE FOR BLEEDING AND HEMOLYSIS TRANSFUSE NEEDED Altered mental status possibly due to hypernatremia. CT BRAIN - NEG COPD. Patient been a current smoker. Advanced dementia. Emaciated state. Consultation Date/Type/Reason Admit Date/Time Oct 25, 2018 at 22:31 Initial Consult Date 10/28/18 [facility]: TEMO ELLISON NP Date/Time of Note DATE: 11/09/18 TIME: 18:51 24 HR Interval Summary Free Text/Dictation ALL NOTED NO NEW EVENTS Exam/Review of Systems Exam Vitals Vital Signs Date Temp Pulse Resp B/P (MAP) Pulse Ox O2 O2 Flow FiO2 Time Delivery Rate 11/09/18 98.0 80 18 136/74 93 Room Air 14:05 (94) Intake and Output 11/08/18 11/08/18 11/09/18 1515:00 23:00 07:00 IntakeIntake Total 670 ml 245 ml 755 ml OutputOutput Total 250 ml BalanceBalance 670 ml 245 ml 505 ml Exam H EENT exam; supple neck, no JVD. No lymphadenopathy. Midline trachea. No thyromegaly. Patient has multiple carious teeth. No neck masses. Chest exam; diminished breath sounds bilaterally. S1-S2 audible, no murmurs. Regular rhythm. Abdomen exam; soft, nondistended. No organomegaly. Bowel sounds audible. Extremity exam; no peripheral edema clubbing. HAND TOOL FILER exam; patient is awake alert able to talk. Appears confused. No focal motor deficit. Constitutional: alert Medications Medication Current Medications IV Flush (NS 3 ml) 3 ml PER PROTOCOL IV ; Start 10/25/18 at 23:00 Ondansetron HCl (Zofran Inj) 4 mg Q6H PRN IV NAUSEA/VOMITING; Start 10/25/18 at 23:00 Heparin Sodium (Porcine) (Heparin (5000 Units/1ml)) 5,000 unit Q12 SC Last administered on 10/27/18 20:32; Admin Dose 5,000 UNIT; Start 10/26/18 at 09:00; Status Hold Albuterol/ Ipratropium (Duoneb) 3 ml Q2H RESP THERAPY PRN HHN SHORTNESS OF BREATH; Start 10/25/18 at 23:00 Lorazepam (Ativan) 1 mg Q6H PRN IV ANXIETY Last administered on 11/09/18 08:39; Admin Dose 1 MG; Start 10/26/18 at 15:30 Thiamine HCl (Vitamin B1) 100 mg DAILY PO Last administered on 11/08/18 08:45; Admin Dose 100 MG; Start 10/29/18 at 09:00 Skin Resp Fact/ Shark/Phenyl Mercur (Hemorrhoidal Supp) 1 ea BID PRN [place] FOR HEMORROID PAIN/ITCHING; Start 10/29/18 at 21:00 Lubiprostone (Amitiza) 24 mcg BID PO Last administered on 11/08/18 08:45; Admin Dose 24 MCG; Start 10/29/18 at 21:00 Acetaminophen (Tylenol Liquid) 650 mg Q6 PRN PO MILD PAIN(1-3)OR ELEVATED TEMP Last administered on 11/06/18 20:16; Admin Dose 650 MG; Start 11/04/18 at 20:30 Megestrol Acetate (Megace Susp) 400 mg BID PO Last administered on 11/08/18 08:45; Admin Dose 400 MG; Start 11/05/18 at 15:00 Docusate Sodium (Colace Liquid Cup) 200 mg BID PO Last administered on 11/07/18 20:18; Admin Dose 200 MG; Start 11/06/18 at 09:00 Polyethylene Glycol (Miralax) 17 gm DAILY PO Last administered on 11/07/18 08:47; Admin Dose 17 GM; Start 11/06/18 at 09:00 Sodium Chloride 1,000 ml @ 70 mls/hr [id number] IV ; Start 11/09/18 at 21:00 MARSHAL CHINO MD Nov 09, 2018 18:54
[2018-11-09 20:14] VITALS: BP 127/70; PULSE 68; RESP 16
[2018-11-10] VITALS: BP 125/62; PULSE 63; RESP 18
[2018-11-10 02:51] VITALS: BP 122/67; PULSE 68; RESP 16
[2018-11-10] MEDS: DOCUSATE SODIUM 10 MG/ML (10ML CUP) PO SCH (09:00)
[2018-11-10] MEDS: MEGESTROL (40 MG/ML) 10ML CUP PO SCH (09:00)
[2018-11-10] MEDS: LUBIPROSTONE 24 MCG CAP PO SCH (09:00)
[2018-11-10] MEDS: THIAMINE 100 MG TAB PO SCH (09:00)
[2018-11-10] MEDS: POLYETHYLENE GLYCOL 17 GM PACKET PO SCH (09:00)
[2018-11-10 09:22] VITALS: BP 126/68; PULSE 80; RESP 16
--- NOTE | 2018-11-10 14:08 | QN ---
Documentation Comment Biomedical ethics committee November 10, 2018 At this time the patient status has not improved. The patient has been transitioned to DNR status and it is the primary care team's formalized position as well as all the consulting specialist that hospice is in the patient's best interest and would be the most ideal way to try and protect this patient's dignity. It is the position of the biomedical ethics committee as noted in the November 03 note and reaffirmed today that hospice care is fully appropriate for this patient in the circumstances and we are in agreement with the primary care team taking the direction of hospice for this individual. The ordering of hospice and signing the forms is fully agreed to by the biomedical ethics committee. Respectfully ERICKA Macario MD, MD Nov 10, 2018 14:08
[2018-11-10 14:42] VITALS: BP 133/73; PULSE 74; RESP 18
--- NOTE | 2018-11-10 15:10 | PN ---
Date/Time of Note Date/Time of Note DATE: 11/10/18 TIME: 15:07 Assessment/Plan VTE Prophylaxis Risk score (from Ns)>0 risk: 6 SCD applied (from Nsg): Yes Pharmacological prophylaxis: other (anemia) Lines/Catheters IV Catheter Type (from Nrs): Peripheral IV Urinary Cath still in place: Yes Reason Cath still needed: other (indicate) (monitor I&O) Assessment/Plan Hospital Course 1. Acute encephalopathy. Unknown baseline mental status. Brain imaging with no acute findings Continue reorientation. 2. Large right hilar lung mass, directly invading into the adjacent subcarinal mediastinum, compatible with primary lung malignancy. Construction Pit Worker and oncologist finding. Not a candidate for aggressive therapy Hospice care evaluation 3. Hematochezia. Was seen by GI consult. No obvious bleeding at this time. Monitor H&H closely. Transfuse as needed. 4. Vaginal bleeding. Resolved. Patient refused transvaginal exam. Pelvic ultrasound showed mildly enlarged endometrium. Monitor 5. Normocytic anemia. Suspect multifactorial : Likely underlying malignancy and acute blood loss. Monitor H&H closely. Transfuse blood products as indicated. Stable at present 6. Failure to thrive. Social work following. Continue dietary supplement 7. Moderate to severe protein-calorie malnutrition. Seen by dietitian Dietary supplements. Disposition and plan. Continue supportive measures. Awaiting possible transfer to hospice. Discussed POC with Dr. Vela Subjective 24 Hr Interval Summary Free Text/Dictation Still appears to be confused at baseline. No respiratory distress. Exam/Review of Systems Exam Vitals Vital Signs Date Temp Pulse Resp B/P (MAP) Pulse Ox O2 O2 Flow FiO2 Time Delivery Rate 11/10/18 98.7 74 18 133/73 97 14:42 (93) 11/10/18 Room Air 09:22 Intake and Output 11/09/18 11/09/18 11/10/18 1515:00 23:00 07:00 IntakeIntake Total 840 ml 1384 ml OutputOutput Total 550 ml BalanceBalance 840 ml 834 ml Exam Constitutional: alert, confused Psych: nl mood/affect Neck: supple, non-tender Respiratory: other (no obvious wheezing/rhonchi) Cardiovascular: other (regular rate ) Neurological: nl speech; No nl mental status Medications Medication Current Medications IV Flush (NS 3 ml) 3 ml PER PROTOCOL IV ; Start 10/25/18 at 23:00 Ondansetron HCl (Zofran Inj) 4 mg Q6H PRN IV NAUSEA/VOMITING; Start 10/25/18 at 23:00 Heparin Sodium (Porcine) (Heparin (5000 Units/1ml)) 5,000 unit Q12 SC Last administered on 10/27/18 20:32; Admin Dose 5,000 UNIT; Start 10/26/18 at 09:00; Status Hold Albuterol/ Ipratropium (Duoneb) 3 ml Q2H RESP THERAPY PRN HHN SHORTNESS OF BREATH; Start 10/25/18 at 23:00 Lorazepam (Ativan) 1 mg Q6H PRN IV ANXIETY Last administered on 11/09/18 08:39; Admin Dose 1 MG; Start 10/26/18 at 15:30 Thiamine HCl (Vitamin B1) 100 mg DAILY PO Last administered on 11/08/18 08:45; Admin Dose 100 MG; Start 10/29/18 at 09:00 Skin Resp Fact/ Shark/Phenyl Mercur (Hemorrhoidal Supp) 1 ea BID PRN [place] FOR HEMORROID PAIN/ITCHING; Start 10/29/18 at 21:00 Lubiprostone (Amitiza) 24 mcg BID PO Last administered on 11/08/18 08:45; Admin Dose 24 MCG; Start 10/29/18 at 21:00 Acetaminophen (Tylenol Liquid) 650 mg Q6 PRN PO MILD PAIN(1-3)OR ELEVATED TEMP Last administered on 11/06/18 20:16; Admin Dose 650 MG; Start 11/04/18 at 20:30 Megestrol Acetate (Megace Susp) 400 mg BID PO Last administered on 11/08/18 08:45; Admin Dose 400 MG; Start 11/05/18 at 15:00 Docusate Sodium (Colace Liquid Cup) 200 mg BID PO Last administered on 11/07/18 20:18; Admin Dose 200 MG; Start 11/06/18 at 09:00 Polyethylene Glycol (Miralax) 17 gm DAILY PO Last administered on 11/07/18 08:47; Admin Dose 17 GM; Start 11/06/18 at 09:00 Sodium Chloride 1,000 ml @ 70 mls/hr [id number] IV Last administered on 11/09/18 23:24; Admin Dose 70 MLS/HR; Start 11/09/18 at 21:00 TEMO ELLISON NP Nov 10, 2018 15:10
[2018-11-10] MEDS: SOD CHLORIDE 0.9% 1,000 ML IV SCH (15:12)
--- NOTE | 2018-11-10 17:10 | CONS ---
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 STAGING WITH CT CHEST WITH IV CONTRAST AND CT ABD/PELVIS WITH AND WITHOUT IV CONTRAST- REVIEWED BIOCHEM W-UP- UNREMARKABLE TUMOR MARKERS-NEG DOESN'T LOOK LIKE PT A GOOD CANDIDATE FOR AGGRESSIVE TREATMENT POST BIOETHICS COMMITTEE EVAL- AGREE WITH DNR, HOSPICE PALLIATIVE CARE F-UP ANEMIA COMPLEX MONITOR CLOSELY OBSERVE FOR BLEEDING AND HEMOLYSIS TRANSFUSE NEEDED Altered mental status possibly due to hypernatremia. CT BRAIN - NEG COPD. Patient been a current smoker. Advanced dementia. Emaciated state. Consultation Date/Type/Reason Admit Date/Time Oct 25, 2018 at 22:31 Initial Consult Date 10/28/18 Type of Consult [facility] Requesting Provider: TEMO ELLISON NP Date/Time of Note DATE: 11/10/18 TIME: 17:10 Exam/Review of Systems Exam Vitals Vital Signs Date Temp Pulse Resp B/P (MAP) Pulse Ox O2 O2 Flow FiO2 Time Delivery Rate 11/10/18 98.7 74 18 133/73 97 14:42 (93) 11/10/18 Room Air 09:22 Intake and Output 11/09/18 11/09/18 11/10/18 1515:00 23:00 07:00 IntakeIntake Total 840 ml 1384 ml OutputOutput Total 550 ml BalanceBalance 840 ml 834 ml Medications Medication Current Medications IV Flush (NS 3 ml) 3 ml PER PROTOCOL IV ; Start 10/25/18 at 23:00 Ondansetron HCl (Zofran Inj) 4 mg Q6H PRN IV NAUSEA/VOMITING; Start 10/25/18 at 23:00 Heparin Sodium (Porcine) (Heparin (5000 Units/1ml)) 5,000 unit Q12 SC Last administered on 10/27/18at 20:32; Admin Dose 5,000 UNIT; Start 10/26/18 at 09:00; Status Hold Albuterol/ Ipratropium (Duoneb) 3 ml Q2H RESP THERAPY PRN HHN SHORTNESS OF BREATH; Start 10/25/18 at 23:00 Lorazepam (Ativan) 1 mg Q6H PRN IV ANXIETY Last administered on 11/09/18at 08:39; Admin Dose 1 MG; Start 10/26/18 at 15:30 Thiamine HCl (Vitamin B1) 100 mg DAILY PO Last administered on 11/08/18 08:45; Admin Dose 100 MG; Start 10/29/18 at 09:00 Skin Resp Fact/ Shark/Phenyl Mercur (Hemorrhoidal Supp) 1 ea BID PRN [place] FOR HEMORROID PAIN/ITCHING; Start 10/29/18 at 21:00 Lubiprostone (Amitiza) 24 mcg BID PO Last administered on 11/08/18 08:45; Admin Dose 24 MCG; Start 10/29/18 at 21:00 Acetaminophen (Tylenol Liquid) 650 mg Q6 PRN PO MILD PAIN(1-3)OR ELEVATED TEMP Last administered on 11/06/18 20:16; Admin Dose 650 MG; Start 11/04/18 at 20:30 Megestrol Acetate (Megace Susp) 400 mg BID PO Last administered on 11/08/18 08:45; Admin Dose 400 MG; Start 11/05/18 at 15:00 Docusate Sodium (Colace Liquid Cup) 200 mg BID PO Last administered on 11/07/18 20:18; Admin Dose 200 MG; Start 11/06/18 at 09:00 Polyethylene Glycol (Miralax) 17 gm DAILY PO Last administered on 11/07/18 08:47; Admin Dose 17 GM; Start 11/06/18 at 09:00 Sodium Chloride 1,000 ml @ 70 mls/hr [id number] IV Last administered on 11/10/18 15:12; Admin Dose 70 MLS/HR; Start 11/09/18 at 21:00 MARSHAL CHINO MD Nov 10, 2018 17:10
--- NOTE | 2018-11-10 20:40 | DS ---
Date/Time of Note Date/Time of Note DATE: 11/10/18 TIME: 20:39 Discharge Summary Admission/Discharge Info Admit Date/Time Oct 25, 2018 at 22:31 Discharge Date/Time Nov 10, 2018 at 18:05 Patient Condition: Stable Hospital Course This is a 73-year-old female with previously no known past medical history who came to the hospital due to altered mentation. CT scan of the head was done that showed moderate white matter disease and prominent atherosclerosis. She also had a white count 11.6 on admission. Patient was noted with acute encephalopathy. Brain imaging was negative for any acute infarcts. We did continue with frequent reorientation. Further investigation of the patient did show her to have a large right hilar lung mass compatible with primary lung malignancy. We did get business system consultant and oncologist to follow. Due to patient's comorbidities she was not a candidate for aggressive management. We did optimize her medically. During her stay she had an episode of hematochezia and scientific helper was involved. We did monitor her H&H. It did stabilize during her course of stay. She also had a event episode of vaginal bleeding. Pelvic ultrasound was done showed mildly enlarged endometrium. There was attempt for transvaginal exam which patient did refuse. After evaluation patient did have failure to thrive. home worker did get involved with the patient's case. client business manager was also involved. Patient had no known family but she did have roommates. It was noted that patient's friend acted as informal caregiver for the patient for several years. There was bioethics meeting concerning patient's condition. After discussion it was noted that Lizy Bright and Beto Smith who are patient's friends could help participate with decision-making for the patient. During her stay patient was stabilized however her mentation did not improve. She was unable to care for herself. After discussion with patient's friends and after discussion with bioethics he was agreed for patient to be transferred to hospice care services. Upon transfer to hospice care, patient was in stable condition Discussed case and plan of care with Dr. Vela Home Meds No Active Prescriptions or Reported Meds Primary Care Provider Care Physician No Primary Time spent on discharge: > 30 minutes TEMO ELLISON NP Nov 10, 2018 20:40
== END 2018-11-10 18:05 | disposition hospice, home (50) | DRG 70 ==
LOC: EDSEX 20:02 → E/R 20:02 → 2NE 22:31 → 5EC 10-27 17:38 → MS3 11-09 10:21
PROVIDERS: ADMIT Internal Medicine; ATTEND Internal Medicine
DX: G93.49 Other encephalopathy (principal); J18.9 Pneumonia, unspecified organism; E43 Unspecified severe protein-calorie malnutrition; E87.0 Hyperosmolality and hypernatremia; C34.91 Malignant neoplasm of unspecified part of right bronchus or lung; Z68.1 Body mass index [BMI] 19.9 or less, adult; M84.58XA Pathological fracture in neoplastic disease, other specified site, initial encounter for fracture; C79.51 Secondary malignant neoplasm of bone; D62 Acute posthemorrhagic anemia; C77.1 Secondary and unspecified malignant neoplasm of intrathoracic lymph nodes; K92.1 Melena; E87.1 Hypo-osmolality and hyponatremia; J44.9 Chronic obstructive pulmonary disease, unspecified; E87.6 Hypokalemia; Z72.0 Tobacco use; N93.9 Abnormal uterine and vaginal bleeding, unspecified; E86.0 Dehydration; F03.90 Unspecified dementia, unspecified severity, without behavioral disturbance, psychotic disturbance, mood disturbance, and anxiety; J43.9 Emphysema, unspecified; K56.41 Fecal impaction
CPT/HCPCS: 36415; 70450; 71045; 71250; 71260; 74177; 76856; 78278; 80048; 80053; 80061; 81001; 83010; 83036; 83605; 83615; 83735; 84100; 84132; 84436; 84479; 84484; 85014; 85018; 85025; 85610; 85651; 85730; 86300; 86301; 87045; 87086; 92526; 92610; 93005; 96365; 96366; 97110; 97116; 97162; 97530; A9560; J0456; J0696; J1644; J2060; J3480; J7030; Q9967